=== PATIENT | female | born 1950 | race Caucasian/White ===

== ENCOUNTER → 2020-07-31 11:23 | Outpatient (BNVA) | payer MEDICARE, SELFPAY | PROVIDERS: PCP Family Medicine; Visit Provider Internal Medicine | DX: J44.9 Chronic obstructive pulmonary disease, unspecified (principal); J30.9 Allergic rhinitis, unspecified; R91.8 Other nonspecific abnormal finding of lung field | CPT/HCPCS: 99213 ==

== ENCOUNTER → 2020-11-07 10:43 | Outpatient (BNVA) | payer MEDICARE, SELFPAY | PROVIDERS: PCP Family Medicine; Visit Provider Physician Assistant | DX: Z13.89 Encounter for screening for other disorder (principal) | CPT/HCPCS: 99212 ==

== ENCOUNTER 2021-04-09 09:02 | Outpatient (REF) | payer MEDICARE, SELFPAY ==
--- NOTE | ~2021-04-09 | MM_ITS ---
US DIAGNOSTIC ULTRASOUND BREAST, LEFT CLINICAL INFORMATION: 70-year-old with 1-2 week history palpable concern 8:00 left breast. No known family history breast cancer. The lifetime risk of breast cancer based on the Tyrer-Cuzick Model is 2%. COMPARISON: Outside mammography 12/19/2018 ([facility]). TECHNIQUE: Digital breast tomosynthesis is performed in both the craniocaudal and mediolateral oblique views along with computer-aided detection (CAD). Synthesized 2D images are generated from the tomosynthesis. Ultrasound left breast is targeted to the area of clinical concern lower inner breast. Grayscale imaging and color Doppler are performed without and with harmonics. Patient is able to point to the area of concern at time of imaging. FINDINGS: There are scattered areas of fibroglandular density (ACR BI-RADS breast composition Category b). The right breast is unremarkable. There is no developing density or interval mass or architectural abnormality. The left breast has new benign rim calcification 8:00 position measuring 0.5 cm x 0.4 cm consistent with small focus fat necrosis. Inferior to the rim calcification is new oval area of parenchymal asymmetry approximately 0.8 cm without correlate on CC view. The axilla and skin contours are unremarkable. Ultrasound targeted to the lower inner left breast demonstrates a hypoechoic mass 9:00 position 4 cm from nipple measuring 0.8 x 0.8 x 0.6 cm. There are low level internal echoes. Margins are incompletely defined. There is increased through-transmission of sound. Some scant peripheral color flow is seen without and internal color flow. This corresponds to the area of palpable concern. Finding could represent a complicated cyst, possibly apocrine metaplasia, PASH, or other entity. Ultrasound-guided core biopsy is recommended. Results are discussed with the patient at time of visit. Results called to office (Michelle) for provider JAYDE Eisenberg on 04/09/2021. MM/MM tomosynthesis diagnostic BI IMPRESSION: 1. Hypoechoic nodule mid inner left breast 0.8 cm with incompletely defined margins corresponding to area of palpable concern. 2. No mammographic evidence of malignancy. ASSESSMENT: BI-RADS 4: Suspicious RECOMMENDATION: Ultrasound-guided core biopsy. This patient's information was entered into a reminder system with a target due date for their next mammogram.
== END 2021-04-09 09:03 | disposition home or self-care (01) ==
LOC: HO.MAMMO 09:02
PROVIDERS: Visit Provider Physician Assistant
DX: N63.24 Unspecified lump in the left breast, lower inner quadrant (principal)
CPT/HCPCS: 76642; 77062; 77066

== ENCOUNTER 2021-04-17 09:06 | Outpatient (REF) | payer MEDICARE, SELFPAY ==
--- NOTE | ~2021-04-17 | US_ITS ---
PROCEDURE: US GUIDED BREAST BIOPSY, LEFT BREAST CLINICAL INFORMATION: Hypoechoic lesion 8 o'clock position, 4 cm from nipple. COMPARISON: 04/09/2021 and studies dating back to 12/19/2018. PROCEDURAL DETAILS: The details of the procedure, as well as the risks, benefits, and alternatives to the procedure were explained to the patient in detail and all of her questions were answered, after which written informed consent was obtained. Site and side were confirmed. Prior to the procedure, sonography revealed a 6 x 5 mm circumscribed hypoechoic lesion at the 8 o'clock position, 4 cm from the nipple with some increased through-sound transmission and no abnormal distal sound shadowing.. A time-out was performed, the lesion intended for biopsy was targeted, and the skin of the left breast was then prepped and draped in the usual sterile fashion. Using sonographic guidance, sterile technique, and 1% lidocaine without epinephrine for local anesthesia, multiple automated core biopsies were obtained through the targeted area with a 14G spring loaded Achieve core biopsy device. There was real-time confirmation of appropriate needle passage. Sampling was documented. At the completion of tissue sampling, a single Butterfly-shaped metallic clip was deposited at the biopsy site. There was no evidence of immediate complication. SPECIMEN: An appropriate sample was obtained. DIGITAL POST-PROCEDURE MAMMOGRAPHY: Breast density: The tissue is heterogeneously dense which may obscure small masses. BI-RADS version 5, category C. There are no new mammographic findings demonstrated. The postprocedure 2-view direct digital mammogram reveals satisfactory positioning of the biopsy clip. The patient tolerated the procedure well and, after assuring adequate hemostasis, was discharged in good condition after reviewing postbiopsy breast care instructions. Final pathology results are pending. US/US breast ndl core biopsy LT IMPRESSION: 1. No immediate complication from ultrasound-guided percutaneous biopsy left breast. 2. Ultrasound was used to localize and guide marker clip placement. 3. The 2-view direct digital postprocedure mammogram reveals satisfactory positioning of the biopsy clip. 4. Final pathology results are pending. A separate report with final recommendations will be issued once these results are made available.
--- NOTE | ~2021-04-17 | MM_ITS ---
EXAMINATION: MM DIAGNOSTIC DIGITAL MAMMOGRAPHY, LEFT CLINICAL INFORMATION: Post biopsy mammogram COMPARISON: Mammography: April 09, 2021 and December 19, 2018 TECHNIQUE: Digital mammography is performed in craniocaudal and 90 degree mediolateral views along with computer-aided detection (CAD). FINDINGS: DIGITAL POST-PROCEDURE MAMMOGRAPHY: Breast density: The tissue is heterogeneously dense which may obscure small masses. BI-RADS version 5, category C. There are no new mammographic findings demonstrated. The postprocedure 2-view direct digital mammogram reveals satisfactory positioning of the biopsy clip. MM/MM diagnostic mammo unilat LT IMPRESSION: Left breast biopsy clip in good position. Addendum to report will be made when pathology results are obtained.
== END 2021-04-17 09:07 | disposition home or self-care (01) ==
LOC: HO.MAMMO 09:06
PROVIDERS: Visit Provider Surgery
DX: D05.12 Intraductal carcinoma in situ of left breast (principal); Z17.0 Estrogen receptor positive status [ER+]; R92.8 Other abnormal and inconclusive findings on diagnostic imaging of breast; R91.8 Other nonspecific abnormal finding of lung field; J44.9 Chronic obstructive pulmonary disease, unspecified; D80.1 Nonfamilial hypogammaglobulinemia; Z98.51 Tubal ligation status; Z90.710 Acquired absence of both cervix and uterus; Z88.1 Allergy status to other antibiotic agents; Z79.899 Other long term (current) drug therapy
CPT/HCPCS: 19083; 77065; 88305; 88360; 99202

== ENCOUNTER → 2021-04-23 15:40 | Outpatient (BNVA) | payer MEDICARE, SELFPAY | PROVIDERS: Visit Provider Surgery | DX: D05.12 Intraductal carcinoma in situ of left breast (principal) | CPT/HCPCS: Q3014 ==

== ENCOUNTER 2021-04-24 11:06 | Outpatient (REF) | payer MEDICARE, SELFPAY ==
--- NOTE | ~2021-04-24 | MM_ITS ---
EXAMINATION: BONE DENSITOMETRY CLINICAL INDICATION: Other specified disorders of bone. COMPARISON: None (current study represents initial baseline exam). TECHNIQUE: Using a [employer] DXA System (software version: 13.1) manufactured by [employer], dual-energy x-ray absorptiometry was performed of the lumbar spine and left hip. The images are of good technical quality. Summary results are attached. FINDINGS: AP SPINE L1-L4: BMD 0.906 g/cm2, Z-score -0.4, T-score -2.3, osteopenia. LEFT FEMUR, NECK: BMD 0.760 g/cm2, Z-score -0.1, T-score -2.0, osteopenia. LEFT FEMUR, TOTAL: BMD 0.792 g/cm2, Z-score -0.1, T-score -1.7, osteopenia. IDENTIFIED RISK FACTORS: Early menopause, secondary osteoporosis, bilateral oophorectomy, osteoporosis. HISTORY OF FRACTURE: None listed. MEDICATIONS: Calcium supplements or multivitamin, vitamin D, strontium. MM/XR DEXA axial skeleton IMPRESSION: 1. DIAGNOSIS: Osteopenia based on the lowest T-score value of -2.3 in the lumbar spine applying World Health Organization criteria. 2. 10-YEAR FRACTURE RISK PREDICTION, FRAX: Major osteoporotic fracture (clinical spine, forearm, hip or shoulder) 11.8%. Hip fracture 2.4%. 3. Treatment Recommendations: NOF guidelines recommend consideration for treatment in postmenopausal women and men age 50 and older presenting with the following: -A hip or vertebral (clinical or morphometric) fracture. -T-score less than or equal to -2.5 at the femoral neck or spine after appropriate evaluation to exclude secondary causes. -Low bone mass at the hip or spine and a 10-year fracture probability by FRAX of greater than or equal to 3% for hip fracture or greater than or equal to 20% for major osteoporotic fracture based on the [place] adapted WHO algorithm. 4. Other Recommendations: All treatment decisions require clinical judgment and consideration of individual patient factors, including patient preferences, comorbidities, previous drug use, risk factors not captured in the FRAX model (e.g. frailty, falls, vitamin D deficiency, increased bone turnover, interval significant decline in bone density) and possible under or overestimation of fracture risk by FRAX. Additional medical evaluation for secondary cause of low bone mineral density may be appropriate. FUTURE SCAN RECOMMENDATION: People with diagnosed cases of osteoporosis or at high risk for fracture should have regular bone mineral density tests. For patients eligible for Medicare, routine testing is allowed once every 2 years. The testing frequency can be increased to one year for patients who have rapidly progressing disease, those who are receiving or discontinuing medical therapy to restore bone mass, or have additional risk factors.
== END 2021-04-24 11:07 | disposition home or self-care (01) ==
LOC: HO.MAMMO 11:06
PROVIDERS: PCP Family Medicine; Visit Provider Family Medicine
DX: M81.0 Age-related osteoporosis without current pathological fracture (principal); M85.89 Other specified disorders of bone density and structure, multiple sites; Z78.0 Asymptomatic menopausal state
CPT/HCPCS: 77080

== ENCOUNTER 2021-11-11 13:54 | Outpatient (REF) | payer MEDICARE, SELFPAY ==
--- NOTE | ~2021-11-11 | XR_ITS ---
EXAMINATION: XR CHEST CLINICAL INFORMATION: Asthma COMPARISON: April 17, 2019 TECHNIQUE: 2 views of the chest were obtained. FINDINGS: There is no evidence of acute parenchymal disease, pneumothorax, or pleural effusion. Heart normal size. No evidence of pulmonary edema. Moderate size hiatal hernia present. Status post previous left shoulder surgery. XR/XR chest 2V IMPRESSION: No acute disease. Hiatal hernia.
--- NOTE | ~2021-11-11 | XR_ITS ---
EXAMINATION: XR SINUSES CLINICAL INFORMATION: Allergic rhinitis. COMPARISON: None TECHNIQUE: 3 views of the sinuses were obtained. FINDINGS: There is mild mucoperiosteal thickening bilateral frontal sinuses. The rest of the paranasal sinuses are well-aerated and clear. The mastoid sinuses are well-aerated and clear. No fractures are identified. No radiodense foreign bodies. XR/XR sinus min 3V IMPRESSION: Lesion is bilateral frontal sinuses likely inflammatory changes. The rest of the paranasal sinuses and mastoid air cells are well-aerated and clear.
== END 2021-11-11 13:55 | disposition home or self-care (01) ==
LOC: HO.XRAY 13:54
PROVIDERS: Visit Provider Internal Medicine
DX: J44.9 Chronic obstructive pulmonary disease, unspecified (principal); J45.909 Unspecified asthma, uncomplicated
CPT/HCPCS: 70220; 71046; 99212

== ENCOUNTER 2022-07-07 14:47 | Outpatient (REF) | payer MEDICARE, SELFPAY ==
--- NOTE | ~2022-07-07 | XR_ITS ---
EXAMINATION: XR CHEST CLINICAL INFORMATION: Bronchitis COMPARISON: Previous chest x-ray most recent October 2021 TECHNIQUE: 2 views of the chest were obtained. FINDINGS: The cardiac silhouette does not appear enlarged. There is an air-fluid level behind the heart suggestive of an esophageal hernia. Hilar and mediastinal contours are otherwise unremarkable. The lungs are clear. There is no pleural effusion or pneumothorax. There is slight increased thoracic kyphosis and mild lower thoracic vertebral body compression fracture that appears unchanged. There is evidence of previous surgery to the left shoulder. XR/XR chest 2V IMPRESSION: No evidence for acute disease in the chest. Esophageal hernia.
== END 2022-07-07 14:48 | disposition home or self-care (01) ==
LOC: HO.XRAY 14:47
PROVIDERS: PCP Family Medicine; Visit Provider Internal Medicine
DX: J40 Bronchitis, not specified as acute or chronic (principal); J44.9 Chronic obstructive pulmonary disease, unspecified; J30.9 Allergic rhinitis, unspecified; R91.8 Other nonspecific abnormal finding of lung field; Z79.899 Other long term (current) drug therapy
CPT/HCPCS: 71046; 99212

== ENCOUNTER → 2023-02-11 11:11 | Outpatient (BNVA) | payer MEDICARE, SELFPAY | PROVIDERS: PCP Family Medicine; Visit Provider Internal Medicine | DX: J44.9 Chronic obstructive pulmonary disease, unspecified (principal); J40 Bronchitis, not specified as acute or chronic; R91.8 Other nonspecific abnormal finding of lung field; Z87.891 Personal history of nicotine dependence | CPT/HCPCS: 99212 ==

== ENCOUNTER 2023-04-04 16:00 | Emergency (ER) | payer MEDICARE, SELFPAY ==
[2023-04-04 16:03] VITALS: BP 166/83; PULSE 83; RESP 16; TEMP 36.6; O2SAT 96; BMI 21.9
[2023-04-04 16:22] LABS: MANUAL DIFF FLAG NO
--- NOTE | 2023-04-04 16:22 | MHC.EDTECH ---
patient blood drawn and sent to lab ,pt unable to give urine sample at this time .
[2023-04-04 16:23] LABS: Basophils Absolute Auto 0.1 X10*3/uL (0.0-0.2); Basophils Percent Auto 0.4 % (0-2); Eosinophils Absolute Auto 0.3 X10*3/uL (0.0-0.4); Eosinophils Percent Auto 2.3 % (0-4); Hematocrit 37.9 % (37.0-47.0); Hemoglobin 12.8 g/dl (12.0-16.0); Imm Gran Abs Auto 0.04 X10*3/uL (0.00-0.03); Imm Gran Pct Auto 0.3 % (0.0-0.4); Lymphocytes Absolute Auto 2.3 X10*3/uL (1.2-4.9); Lymphocytes Percent Auto 17.8 % (20-40); Mean Corpuscular HGB Conc 33.8 g/dl (31.0-35.0); Mean Corpuscular Volume 94.8 fL (80.0-98.0); Mean Platelet Volume 8.8 fL (9.4-12.3); Monocytes Absolute Auto 1.3 X10*3/uL (0.1-1.2); Monocytes Percent Auto 9.9 % (2-11); Neutrophils Absolute Auto 8.9 x10*3/uL (2.0-8.3); Neutrophils Percent Auto 69.3 % (45-73); Platelet Count 232 X10*3/uL (160-400); Red Cell Distribution Width 12.7 % (11.0-16.0); White Blood Count 12.9 X10*3/uL (4.8-10.8)
--- NOTE | 2023-04-04 16:51 | MHC.EDTECH ---
PATIENT URINE SAMPLE COLLECTED AND SENT TO LAB .
[2023-04-04 16:56] LABS: Alanine Aminotransferase 22 U/L (0-31); Albumin Level 4.2 g/dL (3.5-5.0); Alkaline Phosphatase 63 U/L (39-117); Anion Gap 14 (12-20); Aspartate Amino Transferase 23 U/L (5-31); Bilirubin Total 0.3 mg/dL (0.0-1.0); Blood Urea Nitrogen 15 mg/dL (9-16); Calcium 9.7 mg/dL (8.4-10.2); Carbon Dioxide 24 mmol/L (22-29); Chloride 97 mmol/L (96-108); Creatinine Clr Calc Pharmacy 57.4; Estimated Glomerular Filt Rate > 60; Glucose Random 87 mg/dL (60-115); Potassium 4.2 mmol/L (3.3-5.1); Sodium 131 mmol/L (135-145); Total Protein 8.1 g/dL (6.5-8.0)
[2023-04-04 17:01] LABS: Appearance Urine Turbid; Color Urine Yellow; Glucose Urine UA Negative (Negative); Leukocyte Esterase Urine Large (3+) (Negative); Nitrite Urine Negative (Negative); Specific Gravity - Urine <= 1.005 (1.005-1.025); UMIC TRIGGER UACC YES; Urine Blood Large (3+) (Negative); Urine Ketones Negative (Negative); Urine Protein 100 (2+) mg/dL (Neg-Trace)
[2023-04-04 17:06] LABS: Bacteria Urine Trace (None Seen); Hyaline Casts Urine 0-2 /LPF (0-2); Squamous Epithelial Cell Urine 0-2 /HPF (0-2); UACC Culture Trigger YES; WBC Urine >50 /HPF (0-5)
--- NOTE | 2023-04-04 17:12 | ED_ITS ---
HPI - General Adult General Chief complaint: Abdominal Pain Stated complaint: divertuculosis? Time Seen by Provider: 04/04/23 17:11 Source: patient Mode of arrival: ambulatory Limitations: no limitations History of Present Illness HPI narrative: Patient is a 72 year old assigned female at with a history of dive rticulitis presenting to the emergency department today with vague abdominal pain, diarrhea, and increased urinary frequency. Patient states that over the last week she has had vague abdominal pain, diarrhea, and increased urinary frequency. Patient denies any dizziness, lightheadedness, nausea, vomiting, fever, chills, blurry vision, double vision, loss of vision, chest pain, difficulty breathing, shortness of breath, back pain, night sweats, pain with urination, increased urinary urgency, blood in her urine or stool, syncope or a near syncopal episode, recent trauma or falls, bowel incontinence, bladder incontinence, bowel retention, bladder retention, or any other complaints at this time. Onset (ago): week(s) (1) Location: abdomen Radiation: non-radiation Severity: mild Severity scale (1-10): 3 Quality: aching Pain Consistency: constant Relieving factors: none Exacerbating factors: none Associated symptoms: denies other symptoms Treatments prior to arrival: none Related Data Home Medications Medication Instructions Recorded Confirmed fluticasone propionate 50 2 spray intranasal DAILY 07/13/20 04/17/21 mcg/actuation nasal spray,suspension montelukast 10 mg tablet 10 mg PO DAILY 07/13/20 04/17/21 omeprazole 20 mg capsule,delayed mg PO 07/13/20 04/17/21 release immune glob,gamma(IgG) 15 %-18 % IM 11/08/20 04/17/21 range-glycine intramuscular solution bupropion HCl 150 mg 24 hr tablet, 300 mg PO DAILY 11/11/21 extended release celecoxib 200 mg capsule 200 mg PO DAILY 11/11/21 prochlorperazine maleate 10 mg 10 mg PO DAILY PRN 11/11/21 tablet letrozole 2.5 mg tablet 2.5 mg PO DAILY 07/07/22 thyroid (pork) 90 mg tablet 90 mg PO DAILY 07/07/22 ([place] Thyroid) oxybutynin chloride 5 mg tablet 5 mg PO BEDTIME 02/11/23 sertraline 50 mg tablet 25 mg PO DAILY 02/11/23 Previous Rx's Medication Instructions Recorded dicyclomine 10 mg capsule 10 mg PO TID 90 days #270 caps 01/07/21 Symbicort 160 mcg-4.5 2 puff PO BID #30.6 ea 06/19/22 mcg/actuation HFA aerosol inhaler (budesonide-formoterol) albuterol sulfate 90 mcg/actuation 2 puff inhalation Q4-6H PRN 01/21/23 aerosol inhaler shortness of breath or wheezing 30 days #1 ea doxycycline hyclate 100 mg tablet 100 mg PO BID BRONCHITIS 10 days 02/11/23 #20 tabs prednisone 5 mg tablet 10 mg PO BID BRONCHITIS 5 days 02/11/23 #20 tabs levofloxacin 750 mg tablet 750 mg PO DAILY 7 days #7 tabs 04/04/23 metronidazole 500 mg tablet 500 mg PO 3XD 7 days #21 tabs 04/04/23 Allergies Allergy/AdvReac Type Severity Reaction Status Date / Time amoxicillin [AMOXICILLIN] Allergy Unknown SEVERE Verified 04/04/23 16:02 DIARRHEA, diarrhea Review of Systems Constitutional: Constitutional: Reports no additional constitutional complaints, Denies chills, Denies fever(s) and Denies night sweats Eyes: Eyes: Reports no additional eye complaints, Denies blurry vision, Denies change in vision, Denies diplopia, Denies eye discharge, Denies loss of vision and Denies eye pain ENT: Denies dizziness Cardiovascular: Cardiovascular: Reports no additional cardiovascular complaints, Denies chest pain, Denies lightheadedness, Denies Loss of Consciousness and Denies dyspnea Respiratory: Respiratory: Reports no additional respiratory complaints and Denies dyspnea Gastrointestinal: Gastrointestinal: Reports no additional gastrointestinal complaints, Reports abdominal pain, Denies melena, Denies hematochezia, Denies change in bowel habits, Denies change in stool character, Reports diarrhea, Denies nausea and Denies vomiting Genitourinary: Genitourinary: Denies hematuria, Denies urinary frequency, Denies dysuria, Denies urinary incontinence, Denies urinary hesitancy and Denies urinary urgency Comments: increased urinary frequency Musculoskeletal: Musculoskeletal: Reports no additional musculoskeletal complaints, Denies numbness and Denies tingling Neurologic: Denies dizziness, Denies loss of vision, Denies numbness and Denies tingling Psychiatric: Psychiatric: Reports no additional psychiatric complaints Endocrine: Endocrine: Reports no additional endocrine complaints Hematologic/Lymphatic: Hematologic/Lymphatic: Reports no additional hematologic/lymphatic complaints Allergic/Immunologic: Allergic/Immunologic: Reports no additional allergic/immunologic complaints [facility] Past Medical History Attestation statement: The following information was validated with the patient. Source: old records reviewed and nursing notes reviewed Medical History Abnormality of left breast on screening mammography Allergic rhinitis Asthma Bronchitis COPD (chronic obstructive pulmonary disease) Ductal carcinoma in situ (DCIS) of left breast Hypogammaglobulinemia IBS (irritable bowel syndrome) Pulmonary nodules/lesions, multiple Surgical History H/O sinus surgery H/O tubal ligation H/O: hysterectomy History of tonsillectomy History of total left knee replacement Social History Social History Household Members: Spouse Household Members Other:: disabled grandson- Alcohol intake: never Patient Tobacco Use Status: Former Tobacco user Smoked in Last 30 Days: No Use of substances other than those prescribed or required for medical reasons: No Advance Directives: No Advance Directives Information Provided: No Current occupational status: unemployed Physical Exam ED Vital Signs: Vital Signs - 24 hr 04/04/23 16:03 Temperature 97.9 F Pulse Rate 83 Respiratory Rate 16 Blood Pressure 166/83 H Pulse Oximetry 96 Oxygen Delivery Method Room Air BMI result Body Mass Index 21.9 Const General: cooperative, no acute distress, alert and awake Nutritional Appearance: well nourished Orientation/consciousness: patient oriented x3 Limitations: no limitations [facility] Head: Yes normal to inspection and Yes atraumatic Ears: hearing grossly normal bilaterally and external ears normal General nose exam: Normal external nose present, no nasal discharge noted and no epistaxis Face and sinus: Yes normal facial exam, No abrasion and No laceration Mouth: Normal oral and palatal mucosa present, no drooling and no muffled voice Eyes General: appearance normal, both eyes and all related structures Periorbital: periorbital findings normal Eyelids: Yes eyelids normal Conjunctivae: conjunctivae normal Pupils: Equal, round and reactive pupils present EOM: EOMs intact bilaterally Neck Neck: Yes normal visual inspection, Yes full ROM and Yes no lymphadenopathy Chest Chest palpation & inspection: normal inspection of the chest Resp Effort & Inspection: normal respiratory effort and able to speak in complete sentences GI Inspection: Yes normal to inspection Palpation (GI): Soft to palpation, not firm, nontender and no guarding Neuro General: patient oriented x3 and moves all extremities Cranial nerves: Yes Equal, round and reactive pupils present Cognition (Neuro): normal cognition Motor exam (neuro): 5/5 motor strength present throughout Sensory Exam: Normal double simultaneous stimulation for sensation Coordination: [id number] test normal Extrem General: Yes normal to inspection, Yes full ROM and Yes capillary refill normal Psych Appearance: grossly normal Mental Status: mental status grossly normal Affect: normal affect Attitude: cooperative Thought process: Normal thought process present Thought content: Normal thought content present Insight: Good insight present (Psych) Medications Administered Discontinued Medications Generic Name Dose Route Start Last Admin Trade Name Freq PRN Reason Stop Dose Admin Levofloxacin 750 mg 04/04/23 17:34 04/04/23 17:44 Levofloxacin 750 Mg Tablet PO 04/04/23 17:35 750 mg ONCE ONE Administration Metronidazole 500 mg 04/04/23 17:34 04/04/23 17:44 Metronidazole 500 Mg Tablet PO 04/04/23 17:35 500 mg ONCE ONE Administration Ondansetron HCl 4 mg 04/04/23 17:34 04/04/23 17:44 Ondansetron Odt 4 Mg Tab.Rapdis TRANSLINGU 04/04/23 17:35 4 mg ONCE ONE Administration Medical Decision Making Medical Decision Making [facility] Narrative: Patient is a 72 year old assigned female at with a history of diverticulitis presenting to the emergency department today with abdominal pain, diarrhea, and increased urinary frequency. Patient's physical exam was unremarkable. Patient's blood work showed an elevated WBC count of 12.9 and a chronically decreased sodium of 131. Patient's urine showed an acute urinary tract infection. Given the patient's symptoms, will treat for both diverticuli tis and UTI. I explained my physical exam findings as well as all test results to the patient. I answered all questions asked by the patient. I stressed the importance of the patient taking her medication as prescribed. I stressed the importance of the patient following up with her primary care provider. I stressed the importance of the patient returning to the emergency department immediately if her symptoms were to worsen or if she were to develop any dizziness, shortness of breath, difficulty breathing, chest pain, blurry vision, loss of vision, nausea, vomiting, abdominal pain, fever, chills, back pain, or any other complaints. Patient verbalized agreement and understanding with this treatment plan and discharge. Differential Diagnosis Differential Diagnoses: The differential diagnosis associated with the presentation includes UTI, diverticulitis Admission/Observation Consideration of admission/observation: Escalation of care including admission/observation considered Patient would have been admitted to the hospital had her work up had any findings where hospital admission was appropriate. Lab Data [facility] Lab Attestation statement: I reviewed the patient's lab results. My interpretation of these labs is noted in the [facility] portion of this chart. 04/04/23 16:19 04/04/23 16:19 Labs: Lab Results 04/04/23 04/04/23 04/04/23 Range/Units 16:19 16:19 16:51 WBC 12.9 H (4.8-10.8) X10*3/uL RBC 4.00 L (4.20-5.50) X10*6/uL Hgb 12.8 (12.0-16.0) g/dl Hct 37.9 (37.0-47.0) % MCV 94.8 (80.0-98.0) fL MCH 32.0 (27.0-33.0) pg MCHC 33.8 (31.0-35.0) g/dl RDW 12.7 (11.0-16.0) % Plt Count 232 (160-400) X10*3/uL MPV 8.8 L (9.4-12.3) fL Immature Gran % (Auto) 0.3 (0.0-0.4) % Neut % (Auto) 69.3 (45-73) % Lymph % (Auto) 17.8 L (20-40) % [place] % (Auto) 9.9 (2-11) % Eos % (Auto) 2.3 (0-4) % Baso % (Auto) 0.4 (0-2) % Lymph # (Auto) 2.3 (1.2-4.9) X10*3/uL [place] # (Auto) 1.3 H (0.1-1.2) X10*3/uL Eos # (Auto) 0.3 (0.0-0.4) X10*3/uL Baso # (Auto) 0.1 (0.0-0.2) X10*3/uL Abs Immat Gran (auto) 0.04 H (0.00-0.03) X10*3/uL Absolute Neuts (auto) 8.9 H (2.0-8.3) x10*3/uL Absolute Nucleated RBC 0.000 (0.0-0.012) X10*3/uL Nucleated RBC % (auto) 0.0 (0.0-0.2) /100WBC Sodium 131 L (135-145) mmol/L Potassium 4.2 (3.3-5.1) mmol/L Chloride 97 (96-108) mmol/L Carbon Dioxide 24 (22-29) mmol/L Anion Gap 14 (12-20) BUN 15 (9-16) mg/dL Creatinine 0.70 (0.5-1.4) mg/dL Estim Creat Clear Calc 57.4 Estimated GFR > 60 Random Glucose 87 (60-115) mg/dL Calcium 9.7 (8.4-10.2) mg/dL Total Bilirubin 0.3 (0.0-1.0) mg/dL AST 23 (5-31) U/L ALT 22 (0-31) U/L Alkaline Phosphatase 63 (39-117) U/L Total Protein 8.1 H (6.5-8.0) g/dL Albumin 4.2 (3.5-5.0) g/dL Urine Color Yellow Urine Appearance Turbid Urine pH 6.0 (5.0-9.0) Ur Specific [place] <= 1.005 (1.005-1.025) Urine Protein 100 (2+) H (Neg-Trace) mg/dL Urine Glucose (UA) Negative (Negative) mg/dL Urine Ketones Negative (Negative) mg/dL Urine Blood Large (3+) H (Negative) Urine Nitrite Negative (Negative) Ur Leukocyte Esterase Large (3+) H (Negative) Urine RBC 6-10 H (0-2) /HPF Urine WBC >50 H (0-5) /HPF Ur Squamous Epith Cells 0-2 (0-2) /HPF Urine Bacteria Trace (None Seen) Hyaline Casts 0-2 (0-2) /LPF Discharge Plan Discharge Clinical Impression: Diverticulitis, Acute UTI Patient Disposition: Home, Self-Care Instructions: Diverticulitis (ED), Urinary Tract Infection in Women (DC) Additional Instructions: Follow up with your primary care provider. Return to the emergency department immediately if your symptoms worsen or if you develop any dizziness, shortness of breath, difficulty breathing, chest pain, blurry vision, loss of vision, nausea, vomiting, abdominal pain, fever, chills, back pain, or any other complaints. Prescriptions: New metronidazole 500 mg tablet 500 mg PO 3XD 7 Days Qty: 21 0RF levofloxacin 750 mg tablet 750 mg PO DAILY 7 Days Qty: 7 0RF No Action dicyclomine 10 mg capsule 10 mg PO TID 90 Days Qty: 270 2RF budesonide-formoterol [Symbicort] 160-4.5 mcg/actuation HFA aerosol inhaler 2 puff PO BID Qty: 30.6 1RF albuterol sulfate 90 mcg/actuation HFA aerosol inhaler 2 puff inhalation Q4-6H PRN (Reason: shortness of breath or wheezing) 30 Days Qty: 1 2RF montelukast 10 mg tablet 10 mg PO DAILY omeprazole 20 mg capsule,delayed release(DR/EC) PO fluticasone propionate 50 mcg/actuation spray,suspension 2 spray intranasal DAILY bupropion HCl 150 mg tablet extended release 24 hr 300 mg PO DAILY celecoxib 200 mg capsule 200 mg PO DAILY prochlorperazine maleate 10 mg tablet 10 mg PO DAILY PRN sertraline 50 mg tablet 25 mg PO DAILY immune glob G (IgG)-glycine 15-18 % range solution IM letrozole 2.5 mg tablet 2.5 mg PO DAILY thyroid (pork) [[place] Thyroid] 90 mg tablet 90 mg PO DAILY oxybutynin chloride 5 mg tablet 5 mg PO BEDTIME doxycycline hyclate 100 mg tablet 100 mg PO BID 10 Days Qty: 20 0RF prednisone 5 mg tablet 10 mg PO BID 5 Days Qty: 20 0RF Referrals: Sandeep Mares MD [Primary Care Provider] - Interventions: ED Discharge Assessment Last Done: 04/04/23 17:47 Print Language: Armenian
[2023-04-04] MEDS: Ondansetron ODT 4 MG TAB.RAPDIS TRANSLINGU (17:44)
[2023-04-04] MEDS: metroNIDAZOLE 500 MG TABLET PO (17:44)
[2023-04-04] MEDS: levoFLOXacin 750 MG TABLET PO (17:44)
== END 2023-04-04 17:58 | disposition home or self-care (01) ==
PROVIDERS: Emergency Provider Emergency Medicine; PCP Family Medicine
DX: K57.92 Diverticulitis of intestine, part unspecified, without perforation or abscess without bleeding (principal); N39.0 Urinary tract infection, site not specified; B96.20 Unspecified Escherichia coli [E. coli] as the cause of diseases classified elsewhere; Z79.899 Other long term (current) drug therapy
CPT/HCPCS: 36415; 80053; 81001; 81003; 85025; 87086; 87088; 87186; 99283; 99284

== ENCOUNTER 2023-06-30 16:08 | Outpatient (AMB) | payer MEDICARE, SELFPAY ==
--- NOTE | 2023-06-30 16:11 | A.OFFVIS_ITS ---
Intake Vital Signs 06/30/23 16:12 Height 5 ft 2 in Weight 126 lb BMI 23.0 BP 110/70 Blood Pressure Location Lt brachial Position Sitting Pulse 78 Pulse Source Pulse Oximeter Pulse Oximetry (%) 97 Oxygen Delivery Method Room Air Intake Visit Reasons: Cough Intake Note: pt is here for follow up and states she has a little short of breath and cough with the weather. Uses the inhalers and she is fine. 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 Required: No Allergies amoxicillin [AMOXICILLIN] Allergy (Unknown, Verified 06/30/23 16:23) SEVERE DIARRHEA, diarrhea Medication List - Last Reconciled 06/30/23 by Keagan Blackburn MD bupropion HCl 300 mg PO DAILY celecoxib 200 mg PO DAILY dicyclomine 10 mg PO TID 90 days fluticasone propionate 50 mcg/actuation 2 sprays intranasal DAILY immune glob G (IgG)-glycine 15-18 % range IM letrozole 2.5 mg PO DAILY metronidazole 500 mg PO 3XD 7 days montelukast 10 mg PO DAILY omeprazole mg PO oxybutynin chloride 5 mg PO BEDTIME prochlorperazine maleate 10 mg PO DAILY PRN sertraline 25 mg PO DAILY Symbicort 160-4.5 mcg/actuation (budesonide-formoterol) 2 puffs PO BID NS thyroid (pork) ([place] Thyroid) 90 mg PO DAILY Ventolin HFA 90 mcg/actuation (albuterol sulfate) 2 puffs PO Q4-6H PRN NS Do you need a note to return to daycare/school/sports/work: No HPI Cough HPI Details JACKIE IS 72 YEARS OLD VERY, PLEASANT FEMALE COMES FOR FOLLOW-UP AFTER 5 MONTHS. SHE HAS MILD INTERMITTENT NASAL CONGESTION BUT NOT. MUCH POSTNASAL DISCHARGE IT GOES WITH THE WEATHER. BREATHING HAS BEEN VERY STABLE SHE LONG SHE KEEPS ON USING SYMBICORT TWICE A DAY, AND SHE NEEDS ALBUTEROL INHALER ONCE OR TWICE. A DAY DURING THE HOT AND HUMID WEATHER SHE GETS SHORT OF BREATH IF SHE CLIMBS 1 FLIGHT OF STAIRS, BUT NOT ON THE LEVEL FLOOR. SHE HAS HAD no acute exacerbations. [facility] Medical History Bronchitis Ductal carcinoma in situ (DCIS) of left breast Abnormality of left breast on screening mammography Hypogammaglobulinemia IBS (irritable bowel syndrome) Asthma Pulmonary nodules/lesions, multiple COPD (chronic obstructive pulmonary disease) Allergic rhinitis Surgical History H/O sinus surgery History of tonsillectomy H/O: hysterectomy H/O tubal ligation History of total left knee replacement Social History Household Members: Spouse Household Members Other:: disabled grandson- Alcohol intake: never Patient Tobacco Use Status: Former Tobacco user Current occupational status: unemployed Female Reproductive History Menstrual Age of Menarche: 12 Review of Systems Const All systems reviewed & are unremarkable except as noted in HPI and below Denies snoring Eyes Reports no additional complaints ENT Reports nasal congestion (MILD INTERMITTENT BUT ALMOST ON DAILY BASIS) and Reports nasal discharge Card Denies chest pain, Denies irregular heart rhythm, Denies leg edema and Denies dyspnea Resp Reports cough, Denies dyspnea, Denies snoring and Denies wheezing GI Reports GI cramping (MILD INTERMITTENT) and Reports heartburn (CONTROLLED WITH OMEPRAZOLE) Reports no additional complaints Musc Reports no additional complaints Skin/Breast Reports system reviewed and no additional complaints, except as documented Neuro Reports no additional complaints Psych Reports no additional complaints Aller/Immun Denies wheezing Physical Exam Vital Signs: Last Vital Signs Pulse 78 06/30/23 16:12 BP 110/70 06/30/23 16:12 Pulse Ox 97 06/30/23 16:12 Oxygen Delivery Method Room Air 06/30/23 16:12 BMI result Body Mass Index 23.0 Const General: comfortable, no acute distress, alert and awake Orientation/consciousness: patient oriented x3 HEENT Head: Yes normal to inspection General nose exam: No nasal polyps present and No nasal discharge present Face and sinus: Yes sinuses nontender Mouth: oropharynx normal Throat: Yes posterior oropharynx normal Eyes General: appearance normal, both eyes and all related structures Neck Neck: Yes normal visual inspection, Yes no lymphadenopathy, Yes trachea midline and Yes no JVD Thyroid: Thyroid normal Chest Chest palpation & inspection: normal inspection of the chest, normal palpation of entire chest wall and no tenderness Resp Other: PERCUSSION NOTE IS RESONANT, BREATH SOUNDS ARE DISTANT ON BOTH SIDES . NO WHEEZES RHONCHI BUT A FEW INSPIRATORY CREPITATIONS HEARD OVER THE BASILAR AREAS. DEEP BREATHING IS CAUSING COUGH. Cardio Palpation: normal PMI Rate: regular rate Rhythm: regular rhythm Heart sounds: no gallops and no murmurs Peripheral pulses: Peripheral pulses 2+ throughout GI Palpation (GI): Soft to palpation, nontender, No hepatosplenomegaly present and no masses Auscultation: normal bowel sounds Back/Spine/Pelvis Thoracic/Lumbar Spine: thoracic and lumbar spine normal to inspection Skin General skin exam: no rashes or lesions noted Neuro General: patient oriented x3 and no focal motor deficits Cranial nerves: Yes CN's II-XII intact bilaterally Extrem General: Yes normal to inspection, Yes no clubbing, cyanosis or edema and Yes no calf tenderness Psych Appearance: grossly normal and well kempt Speech and movement: Normal speech and movement present Affect: Anxious affect present Assessment & Plan Assessment & Plan (1) COPD (chronic obstructive pulmonary disease): Comment: PER PREVIOUS SPIROMETRY SHE HAS NO CHRONIC OBSTRUCTIVE PULMONARY DISORDER. AND MOST LIKELY HER SYMPTOMS ARE JUST DUE TO MILD CHRONIC BRONCHIAL ASTHMA. TX : SYMBICORT 160-4.52 PUFFS B.I.D. BUT MAY CUT DOWN TO 1 PUFF B.I.D. WHEN SYMPTOMS OF OR TO BASELINE. AND ALBUTEROL 2 PUFFS Q 4-6 HOURS P.R.N. Code(s): J44.9 - Chronic obstructive pulmonary disease, unspecified (2) Allergic rhinitis: Comment: SHE HAS CHRONIC ALLERGIC RHINITIS, AND MAY ALSO HAVE ASSOCIATED SINUSITIS. X-RAY OF THE SINUSES WERE NEGATIVE . TREATMENT : CONTINUE USING FLONASE 2 SPRAY EACH NOSTRIL DAILY. MONTELUKAST 10 MG DAILY. STEAM INHALATIONS 2 OR 3 TIMES A DAY WOULD BE HELPFUL. Code(s): J30.9 - Allergic rhinitis, unspecified (3) Pulmonary nodules/lesions, multiple: Comment: Last CT scan of chest in 2019,, showed no change in size of multiple micronodules ,, and considered BENIGN . one new 3 mm. Nodule noted in Rt lung , but as she is non - smoker and low Risk , no need of doing follow up CT scan . Patient Educated , Code(s): R91.8 - Other nonspecific abnormal finding of lung field Coding Level of Care Code Est Pt Level 3 (19210) Diagnoses COPD (chronic obstructive pulmonary disease) J44.9 Allergic rhinitis J30.9 Pulmonary nodules/lesions, multiple R91.8
[2023-06-30 16:12] VITALS: BP 110/70; PULSE 78; O2SAT 97; BMI 23.0
== END 2023-06-30 16:25 | disposition home or self-care (01) ==
PROVIDERS: PCP Family Medicine; Visit Provider Internal Medicine
DX: J44.9 Chronic obstructive pulmonary disease, unspecified (principal); J30.9 Allergic rhinitis, unspecified; R91.8 Other nonspecific abnormal finding of lung field
CPT/HCPCS: 99213

== ENCOUNTER → 2023-06-30 16:08 | Outpatient (BNVA) | payer MEDICARE, SELFPAY | PROVIDERS: PCP Family Medicine; Visit Provider Internal Medicine | DX: J44.9 Chronic obstructive pulmonary disease, unspecified (principal); R91.8 Other nonspecific abnormal finding of lung field; J30.9 Allergic rhinitis, unspecified | CPT/HCPCS: 99212 ==

== ENCOUNTER 2024-03-08 13:35 | Outpatient (AMB) | payer MEDICARE, SELFPAY ==
[2024-03-08 13:42] VITALS: BP 130/72; PULSE 71; O2SAT 96; BMI 22.9
--- NOTE | 2024-03-08 13:42 | MHC.OFFVIS ---
Vital Signs 03/08/24 13:42 Height 5 ft 2 in Weight 125 lb BMI 22.9 BP 130/72 Blood Pressure Location Lt brachial Position Sitting Pulse 71 Pulse Source Pulse Oximeter Pulse Oximetry (%) 96 Oxygen Delivery Method Room Air Intake Visit Reasons: COPD Intake Note: pt is here for follow up and states she had covid in Nov, and in December bad sinus infections and than she had strep throat, and than finally UTI. (bad). 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: No Allergies amoxicillin [AMOXICILLIN] Allergy (Unknown, Verified 03/08/24 14:05) SEVERE DIARRHEA, diarrhea fLAGYL Adverse Reaction (Severe, Uncoded 03/08/24 14:05) Shortness of Breath Medication List - Last Reconciled 03/08/24 by Keagan Blackburn MD Breo Ellipta 200-25 mcg/dose (fluticasone furoate-vilanterol) 1 ea inhalation DAILY NS bupropion HCl XL 300 mg PO DAILY celecoxib 200 mg PO DAILY dicyclomine 10 mg PO TID 90 days fluticasone propionate 50 mcg/actuation 2 sprays intranasal DAILY immune glob G (IgG)-glycine 15-18 % range IM letrozole 2.5 mg PO DAILY montelukast 10 mg PO DAILY oxybutynin chloride 5 mg PO BEDTIME prochlorperazine maleate 10 mg PO DAILY PRN thyroid (pork) ([place] Thyroid) 90 mg PO DAILY Ventolin HFA 90 mcg/actuation (albuterol sulfate) 2 puffs inhalation Q4-6H PRN NS vibegron (Gemtesa) 75 mg PO DAILY Do you need a note to return to daycare/school/sports/work: No HPI HPI COPD: Details: THIS 73 YEARS OLD VERY PLEASANT FEMALE IS HERE FOR FOLLOW-UP AFTER 6 MONTHS. SHE IS BEING TREATED FOR ALLERGIC RHINITIS AND CHRONIC OBSTRUCTIVE PULMONARY DISEASE. SHE LIKES BREO AND USES 1 INHALATION DAILY , BREATHING STAYS WELL. SHE HAS HAD COVID INFECTION IN NOVEMBER , AND THEN IN DECEMBER AND RECOVERED BY HERSELF WITHOUT ANY SPECIAL MEDICATION. HER SYMPTOMS OF ALLERGIC RHINITIS CONTINUE, GETTING WORSE OFF AND ON., WITH POSTNASAL DRIP. MOSTLY CONTROLLED WITH HER CURRENT MEDICAL REGIMEN. SHE HAS HYPOGLOBILEMIA BEING TREATED WITH IGG INJECTION ONCE A MONTH. [facility] Medical History Bronchitis Ductal carcinoma in situ (DCIS) of left breast Abnormality of left breast on screening mammography Hypogammaglobulinemia IBS (irritable bowel syndrome) Asthma Pulmonary nodules/lesions, multiple COPD (chronic obstructive pulmonary disease) Allergic rhinitis Surgical History H/O sinus surgery History of tonsillectomy H/O: hysterectomy H/O tubal ligation History of total left knee replacement Social History Household Members: Spouse Household Members Other:: disabled grandson- Alcohol intake: never Patient Tobacco Use Status: Former Tobacco user Current occupational status: unemployed Female Reproductive History Menstrual Age of Menarche: 12 Review of Systems Const All systems reviewed & are unremarkable except as noted in HPI and below Denies snoring Eyes Reports no additional complaints ENT Reports nasal congestion (MILD INTERMITTENT BUT ALMOST ON DAILY BASIS) and Reports nasal discharge Card Denies chest pain, Denies irregular heart rhythm, Denies leg edema and Denies dyspnea Resp Reports cough, Denies dyspnea, Denies snoring and Denies wheezing GI Reports GI cramping (MILD INTERMITTENT) and Reports heartburn (CONTROLLED WITH OMEPRAZOLE) Reports no additional complaints Musc Reports no additional complaints Skin/Breast Reports system reviewed and no additional complaints, except as documented Neuro Reports no additional complaints Psych Reports no additional complaints Aller/Immun Denies wheezing Physical Exam Vital Signs: Last Vital Signs Pulse 71 03/08/24 13:42 BP 130/72 03/08/24 13:42 Pulse Ox 96 03/08/24 13:42 Oxygen Delivery Method Room Air 03/08/24 13:42 BMI result Body Mass Index 22.9 Const General: comfortable, no acute distress, alert and awake Orientation/consciousness: patient oriented x3 HEENT Head: Yes normal to inspection General nose exam: No nasal polyps present and No nasal discharge present Face and sinus: Yes sinuses nontender Mouth: oropharynx normal Throat: Yes posterior oropharynx normal Eyes General: appearance normal, both eyes and all related structures Neck Neck: Yes normal visual inspection, Yes no lymphadenopathy, Yes trachea midline and Yes no JVD Thyroid: Thyroid normal Chest Chest palpation & inspection: normal inspection of the chest, normal palpation of entire chest wall and no tenderness Resp Other: PERCUSSION NOTE IS RESONANT, BREATH SOUNDS ARE DISTANT ON BOTH SIDES . NO WHEEZES OR RHONCHI BUT A FEW INSPIRATORY CREPITATIONS HEARD OVER THE BASILAR AREAS. Cardio Palpation: normal PMI Rate: regular rate Rhythm: regular rhythm Heart sounds: no gallops and no murmurs Peripheral pulses: Peripheral pulses 2+ throughout GI Palpation (GI): Soft to palpation, nontender, No hepatosplenomegaly present and no masses Auscultation: normal bowel sounds Back/Spine/Pelvis Thoracic/Lumbar Spine: thoracic and lumbar spine normal to inspection Skin General skin exam: no rashes or lesions noted Neuro General: patient oriented x3 and no focal motor deficits Cranial nerves: Yes CN's II-XII intact bilaterally Extrem General: Yes normal to inspection, Yes no clubbing, cyanosis or edema and Yes no calf tenderness Psych Appearance: grossly normal and well kempt Speech and movement: Normal speech and movement present Affect: Anxious affect present Assessment & Plan Assessment & Plan (1) Allergic rhinitis: Comment: SHE HAS CHRONIC ALLERGIC RHINITIS, WHICH HAS REMAINED WELL CONTROLLED. Code(s): J30.9 - Allergic rhinitis, unspecified Category: Medical Plan: TREATMENT : CONTINUE USING FLONASE 2 SPRAY EACH NOSTRIL DAILY. MONTELUKAST 10 MG DAILY. STEAM INHALATIONS 2 OR 3 TIMES A DAY WOULD BE HELPFUL. (2) COPD (chronic obstructive pulmonary disease): Comment: PER PREVIOUS SPIROMETRY SHE HAS NO CHRONIC OBSTRUCTIVE PULMONARY DISORDER. AND MOST LIKELY HER SYMPTOMS ARE JUST DUE TO MILD CHRONIC BRONCHIAL ASTHMA. Code(s): J44.9 - Chronic obstructive pulmonary disease, unspecified Category: Medical Plan: [place] : BREO ELLIPTA 200-251 INHALATION DAILY ALBUTEROL HFA Q 4 HOURS ONLY P.R.N. (3) Pulmonary nodules/lesions, multiple: Comment: Last CT scan of chest in 2019,, showed no change in size of multiple micronodules ,, and considered BENIGN . One new 3 mm. Nodule noted in Rt lung , but as she is non - smoker and low Risk , no need of doing follow up CT scan . Patient Educated , Code(s): R91.8 - Other nonspecific abnormal finding of lung field Category: Medical (4) Asthma: Comment: PER PREVIOUS EVALUATION SHE HAS CHRONIC BRONCHIAL ASTHMA HOWEVER MILD, WHICH SEEMS TO BE WELL CONTROLLED. Code(s): J45.909 - Unspecified asthma, uncomplicated Category: Medical Plan: NOTED UNDER COPD, SHE IS USING BREO 200-25 1 INHALATION DAILY AND IS HAPPY WITH THAT. SHE HARDLY NEEDS TO USE ANY RESCUE INHALER. Plan ADVISE THAT SHE SHOULD CONTINUE THE PRESENT MEDICATION REGIMEN. Coding Level of Care Code Est Pt Level 3 (51588) Diagnoses Allergic rhinitis J30.9 COPD (chronic obstructive pulmonary disease) J44.9 Pulmonary nodules/lesions, multiple R91.8 Asthma J45.909
== END 2024-03-08 14:05 | disposition home or self-care (01) ==
LOC: HO.HPS 13:40
PROVIDERS: PCP Family Medicine; Visit Provider Internal Medicine
DX: J30.9 Allergic rhinitis, unspecified (principal); J44.9 Chronic obstructive pulmonary disease, unspecified; R91.8 Other nonspecific abnormal finding of lung field; J45.909 Unspecified asthma, uncomplicated
CPT/HCPCS: 99213

== ENCOUNTER → 2024-03-08 13:40 | Outpatient (BNVA) | payer MEDICARE, SELFPAY | PROVIDERS: PCP Family Medicine; Visit Provider Internal Medicine | DX: J44.9 Chronic obstructive pulmonary disease, unspecified (principal); J45.909 Unspecified asthma, uncomplicated; R91.8 Other nonspecific abnormal finding of lung field | CPT/HCPCS: 99212 ==

== ENCOUNTER 2024-05-14 19:34 | Inpatient (IN) | payer MEDICARE, SELFPAY ==
--- NOTE | ~2024-05-14 | CT_ITS ---
EXAMINATION: CT ABDOMEN AND PELVIS WITH CONTRAST CLINICAL INFORMATION: Left lower quadrant pain; history of diverticulitis. COMPARISON: Abdominal ultrasound dated 04/23/2020; CT abdomen and pelvis dated 03/25/2012. TECHNIQUE: Multidetector volumetric images were obtained from the superior aspect of the liver through the pubic symphysis following administration 85 mL of Omnipaque 350 intravenous contrast. Sagittal and coronal reformatted images were obtained on the technologist's workstation. Oral contrast: No This CT examination was performed using dose optimization techniques as appropriate, variously including the following: *Automated exposure control *Adjustment of mA and/or kV according to patient size (this includes techniques or standardized protocols for targeted exams where dose is matched to indication/reason for exam; i.e. extremities or head) *Use of iterative reconstruction technique DLP: 495 mGy-cm FINDINGS: LUNG BASES: There is a moderately large hiatus hernia. There is mild bibasilar dependent hypoaeration. LIVER, GALLBLADDER, AND BILIARY TREE: The liver is normal in size, shape, and attenuation. No focal hepatic lesion or biliary ductal dilatation is present. The gallbladder is unremarkable with no evidence of radiopaque gallstones, gallbladder wall thickening, or obvious pericholecystic inflammatory changes. PANCREAS: Unremarkable. SPLEEN: Unremarkable. ADRENAL GLANDS: Unremarkable. KIDNEYS AND URETERS: The kidneys are normal in size, shape, and attenuation. No hydronephrosis, hydroureter, or calculi seen. At the interpolar aspect of the right kidney (2:31), a 1.0 cm exophytic simple cyst is seen, with postcontrast Hounsfield value of -8.4 units. This requires no imaging follow-up. No perinephric stranding. BLADDER: Unremarkable. GASTROINTESTINAL TRACT: There is marked diverticulosis, without acute diverticulitis. No bowel obstruction, free intraperitoneal air or abscess is seen. There is no focal bowel wall thickening. The vermiform appendix appears normal. ABDOMINAL WALL: There is a small fat-containing umbilical hernia. LYMPH NODES: There is no abdominopelvic lymphadenopathy. VASCULAR: There is moderate aortoiliac atherosclerotic calcification. No abdominal aortic aneurysm or dissection is seen. PELVIC VISCERA: Surgically absent. No pelvic mass, free fluid or lymphadenopathy is seen. OSSEOUS STRUCTURES: There are mild T11 and T12 anterior wedge compression fractures, unchanged from the lateral chest radiograph dated 07/07/2022. At L2-L3, there is degenerative disc disease, with vacuum disc phenomenon and a 3 mm retrolisthesis. No acute or aggressive osseous finding is noted. CT/CT abdomen pelvis w IV con IMPRESSION: 1. There is marked diverticulosis, without acute diverticulitis. No obstruction, free intraperitoneal air or abscess is seen. The vermiform appendix appears normal. 2. There is no urinary calculus or obstruction. 3. No abdominopelvic mass, free fluid or lymphadenopathy is seen. 4. There is a small fat-containing umbilical hernia. 5. There are stable mild T11-T12 anterior wedge compression fractures. There is degenerative disc disease at L2-L3. 6. There is a moderately large hiatus hernia. Fleischner guidelines were followed.
[2024-05-14 19:37] VITALS: BP 155/84; PULSE 82; RESP 16; TEMP 36.3; O2SAT 96; BMI 23.2
[2024-05-14 20:00] LABS: MANUAL DIFF FLAG NO
[2024-05-14 20:02] LABS: Appearance Urine Clear; Color Urine Yellow; Glucose Urine UA Negative (Negative); Leukocyte Esterase Urine Negative (Negative); Nitrite Urine Negative (Negative); Urine Blood Negative (Negative); Urine Ketones Negative (Negative); Urine Protein Negative (Neg-Trace)
[2024-05-14 20:02] LABS: Basophils Percent Auto 0.5 % (0-2); Eosinophils Absolute Auto 0.2 X10*3/uL (0.0-0.4); Eosinophils Percent Auto 1.9 % (0-4); Hematocrit 36.2 % (37.0-47.0); Hemoglobin 12.9 g/dl (12.0-16.0); Imm Gran Abs Auto 0.03 X10*3/uL (0.00-0.03); Imm Gran Pct Auto 0.4 % (0.0-0.4); Lymphocytes Absolute Auto 2.2 X10*3/uL (1.2-4.9); Lymphocytes Percent Auto 27.5 % (20-40); Mean Corpuscular HGB Conc 35.6 g/dl (31.0-35.0); Mean Corpuscular Hemoglobin 32.6 pg (27.0-33.0); Mean Corpuscular Volume 91.4 fL (80.0-98.0); Mean Platelet Volume 8.6 fL (9.4-12.3); Monocytes Absolute Auto 0.9 X10*3/uL (0.1-1.2); Monocytes Percent Auto 11.6 % (2-11); Neutrophils Absolute Auto 4.6 x10*3/uL (2.0-8.3); Neutrophils Percent Auto 58.1 % (45-73); Platelet Count 225 X10*3/uL (160-400); Red Blood Count 3.96 X10*6/uL (4.20-5.50); Red Cell Distribution Width 12.1 % (11.0-16.0); White Blood Count 7.9 X10*3/uL (4.8-10.8)
[2024-05-14 20:17] LABS: Alanine Aminotransferase 22 U/L (0-31); Albumin Level 4.1 g/dL (3.5-5.0); Alkaline Phosphatase 56 U/L (39-117); Anion Gap 14 (12-20); Aspartate Amino Transferase 21 U/L (5-31); Bilirubin Direct 0.1 mg/dL (0.0-0.5); Bilirubin Total 0.3 mg/dL (0.0-1.0); Blood Urea Nitrogen 16 mg/dL (9-16); Calcium 9.2 mg/dL (8.4-10.2); Carbon Dioxide 19 mmol/L (22-29); Chloride 95 mmol/L (96-108); Creatinine Clr Calc Pharmacy 61.9; Estimated Glomerular Filt Rate > 60; Glucose Random 93 mg/dL (60-115); Sodium 124 mmol/L (135-145); Total Protein 7.9 g/dL (6.5-8.0)
--- NOTE | 2024-05-14 20:18 | ED.ABDPAIN ---
HPI - Abdominal Pain General Chief Complaint: Abdominal Pain Stated Complaint: ?diverticulitis Time Seen by Provider: 05/14/24 19:47 Source: patient Mode of arrival: ambulatory Limitations: no limitations History of Present Illness ED Provider: Dr. Jenny Cabezas HPI narrative: Patient comes to the emergency room complaining of 2 days of abdominal pain. Patient states that the pain is constant, more towards the left side and bilateral lower quadrants. Patient denies vomiting, 1 episode of diarrhea, constant nausea. Patient states that for the last 3 days she has been taking p.o. levofloxacin which she had available at home p.r.n. abdominal pain and diverticulitis like symptoms. Patient states she has had diverticulitis in the past. Patient states that she is not feeling any better. Related Data Home Medications ?Medication ?Instructions ?Recorded ?Confirmed fluticasone propionate 50 2 spray intranasal DAILY 07/13/20 04/17/21 mcg/actuation nasal spray,suspension montelukast 10 mg tablet 10 mg PO DAILY 07/13/20 04/17/21 immune glob,gamma(IgG) 15 %-18 % IM 11/08/20 04/17/21 range-glycine intramuscular solution bupropion HCl 150 mg 24 hr tablet, 300 mg PO DAILY 11/11/21 extended release celecoxib 200 mg capsule 200 mg PO DAILY 11/11/21 prochlorperazine maleate 10 mg 10 mg PO DAILY PRN 11/11/21 tablet letrozole 2.5 mg tablet 2.5 mg PO DAILY 07/07/22 thyroid (pork) 90 mg tablet 90 mg PO DAILY 07/07/22 ([place] Thyroid) oxybutynin chloride 5 mg tablet 5 mg PO BEDTIME 02/11/23 vibegron 75 mg tablet (Gemtesa) 75 mg PO DAILY 03/08/24 Previous Rx's ?Medication ?Instructions ?Recorded dicyclomine 10 mg capsule 10 mg PO TID 90 days #270 caps 01/07/21 Breo Ellipta 200 mcg-25 mcg/dose 1 ea inhalation DAILY #60 ea 02/14/24 powder for inhalation (fluticasone furoate-vilanterol) Ventolin HFA 90 mcg/actuation 2 puff inhalation Q4-6H PRN for 05/09/24 aerosol inhaler (albuterol sulfate) wheezing 90 days #54 ea Allergies Allergy/AdvReac Type Severity Reaction Status Date / Time amoxicillin [AMOXICILLIN] Allergy Unknown SEVERE Verified 05/14/24 19:37 DIARRHEA, diarrhea fLAGYL AdvReac Severe Shortness Uncoded 05/14/24 19:37 of Breath Review of Systems Review of Systems Constitutional : No Weight loss, No Fever, No Chills, No Night Sweats, No Fatigue, No Malaise ENT/Mouth : No Hearing loss, No Ear Pain, No Nasal Congestion, No Sinus Pain, No Hoarseness, No sore throat, No Rhinorrhea, No Swallowing Difficulty Eyes: No Eye Pain, No Swelling, No Redness, No Foreign Body, No Discharge, No Vision Changes Cardiovascular : No Chest Pain, No SOB, No Dyspnea on Exertion, No Orthopnea, No Edema, No Palpitations Respiratory : No Cough, No Sputum, No Wheezing, No Smoke Exposure, No Dyspnea Gastrointestinal : Complaining of Nausea, No Vomiting, No Diarrhea, No Constipation, complaining of diffuse abdominal pain, worse over the left lower quadrant and bilateral quadrants Genitourinary : no irregular bleeding, No Dysuria, No Urinary Frequency, No Hematuria, No Urinary Incontinence, No Urgency, No Flank Pain, No Urinary Flow Changes, No Hesitancy Musculoskeletal : No joint pain, No Myalgias, No Joint Swelling Skin : No Skin Lesions, No rash Neuro : No Weakness, No Numbness, No Paresthesias, No Loss of Consciousness, No Dizziness, No Headache Psych : No Anxiety/Panic, No Depression, No SI/HI/AH/VH, No Social Issues, Heme/Lymph: No Bruising, No Bleeding,No Lymphadenopathy Endocrine : No Polyuria, No Polydipsia, No Temperature Intolerance PMFSH Past Medical History Medical History Bronchitis Ductal carcinoma in situ (DCIS) of left breast Abnormality of left breast on screening mammography Hypogammaglobulinemia IBS (irritable bowel syndrome) Asthma Pulmonary nodules/lesions, multiple COPD (chronic obstructive pulmonary disease) Allergic rhinitis Surgical History H/O sinus surgery History of tonsillectomy H/O: hysterectomy H/O tubal ligation History of total left knee replacement Social History Social History Household Members: Spouse Household Members Other:: disabled grandson- Alcohol intake: never Patient Tobacco Use Status: Former Tobacco user Smoked in Last 30 Days: No Use of substances other than those prescribed or required for medical reasons: No Advance Directives: Yes Advance Directives Information Provided: No Advance Directives on File: No Current occupational status: unemployed Physical Exam ED Vital Signs: Vital Signs - 24 hr 05/14/24 19:37 Temperature 97.3 F Pulse Rate 82 Respiratory Rate 16 Blood Pressure 155/84 H Pulse Oximetry 96 Oxygen Delivery Method Room Air BMI result Body Mass Index 23.2 Const Other: Appearance: Alert. Oriented X3. No acute distress. Eyes: Pupils equal, round and reactive to light. ENT: Pharynx normal. Neck: Normal inspection. Neck supple. No lymph nodes noted. No crepitus CVS: Normal heart rate and rhythm. Pulses normal. Normal S1 and S2 Respiratory: No respiratory distress. Breath sounds normal. No Wheezing. No rales Abdomen: Soft, pain to palpation in the left upper and lower quadrant, no rebound or guarding. Skin: Skin warm and dry. Normal skin color. Normal skin turgor. Extremities: No lower extremity edema. No Lacerations. No Rash Neuro: Oriented X 3. No motor deficit. No sensory deficit. Moving all extremities. No slurred speech. CN 2 through 12 grossly intact Psych: calm, cooperative, normal affect Course Course Course Narrative: -patient receiving IV fluids, ketorolac and Zofran. -all of patient's labs and imaging pending Medical Decision Making Medical Decision Making [facility] Narrative: -my interpretation of labs: Normal white blood cell count. Chemistry shows a sodium of 124. Normal LFTs. Urine analysis negative for UTI -patient admits that she drinks a lot of water -my interpretation of CT scan, no obvious small bowel obstruction, no obvious abscess -I discussed the patient with Dr. Orlando from the Medicine team, patient being admitted Differential Diagnosis Differential Diagnoses: The differential diagnosis associated with the presentation includes (UTI, hyponatremia, diverticulitis) Admission/Observation Consideration of admission/observation: Escalation of care including admission/observation considered Consult Healthcare Provider Management of the patient was discussed with: Hospitalist Lab Data [facility] Lab Attestation statement: I reviewed the patient's lab results. 05/14/24 19:52 05/14/24 19:52 Labs: Lab Results 05/14/24 05/14/24 Range/Units 19:52 19:54 WBC 7.9 (4.8-10.8) X10*3/uL RBC 3.96 L (4.20-5.50) X10*6/uL Hgb 12.9 (12.0-16.0) g/dl Hct 36.2 L (37.0-47.0) % MCV 91.4 (80.0-98.0) fL MCH 32.6 (27.0-33.0) pg MCHC 35.6 H (31.0-35.0) g/dl RDW 12.1 (11.0-16.0) % Plt Count 225 (160-400) X10*3/uL MPV 8.6 L (9.4-12.3) fL Immature Gran % (Auto) 0.4 (0.0-0.4) % Neut % (Auto) 58.1 (45-73) % Lymph % (Auto) 27.5 (20-40) % [place] % (Auto) 11.6 H (2-11) % Eos % (Auto) 1.9 (0-4) % Baso % (Auto) 0.5 (0-2) % Lymph # (Auto) 2.2 (1.2-4.9) X10*3/uL [place] # (Auto) 0.9 (0.1-1.2) X10*3/uL Eos # (Auto) 0.2 (0.0-0.4) X10*3/uL Baso # (Auto) 0.0 (0.0-0.2) X10*3/uL Abs Immat Gran (auto) 0.03 (0.00-0.03) X10*3/uL Absolute Neuts (auto) 4.6 (2.0-8.3) x10*3/uL Absolute Nucleated RBC 0.000 (0.0-0.012) X10*3/uL Nucleated RBC % (auto) 0.0 (0.0-0.2) /100WBC Sodium 124 L (135-145) mmol/L Potassium 4.0 (3.3-5.1) mmol/L Chloride 95 L (96-108) mmol/L Carbon Dioxide 19 L (22-29) mmol/L Anion Gap 14 (12-20) BUN 16 (9-16) mg/dL Creatinine 0.64 (0.5-1.4) mg/dL Estim Creat Clear Calc 61.9 Estimated GFR > 60 Random Glucose 93 (60-115) mg/dL Calcium 9.2 (8.4-10.2) mg/dL Total Bilirubin 0.3 (0.0-1.0) mg/dL Direct Bilirubin 0.1 (0.0-0.5) mg/dL AST 21 (5-31) U/L ALT 22 (0-31) U/L Alkaline Phosphatase 56 (39-117) U/L Total Protein 7.9 (6.5-8.0) g/dL Albumin 4.1 (3.5-5.0) g/dL Urine Color Yellow Urine Appearance Clear Urine pH 6.0 (5.0-9.0) Ur Specific [place] 1.010 (1.005-1.025) Urine Protein Negative (Neg-Trace) mg/dL Urine Glucose (UA) Negative (Negative) mg/dL Urine Ketones Negative (Negative) mg/dL Urine Blood Negative (Negative) Urine Nitrite Negative (Negative) Ur Leukocyte Esterase Negative (Negative) Urine Osmolality 253 L (373-1093) mosm/kg Ur Random Sodium < 20.0 mmol/L Independent Interpretation I performed an independent interpretation of an: CT Scan Radiology Impression Discussion of test interpretation with radiology: I have reviewed the radiologist's reading. Radiologist Impression: FINDINGS: LUNG BASES: There is a moderately large hiatus hernia. There is mild bibasilar dependent hypoaeration. LIVER, GALLBLADDER, AND BILIARY TREE: The liver is normal in size, shape, and attenuation. No focal hepatic lesion or biliary ductal dilatation is present. The gallbladder is unremarkable with no evidence of radiopaque gallstones, gallbladder wall thickening, or obvious pericholecystic inflammatory changes. PANCREAS: Unremarkable. SPLEEN: Unremarkable. ADRENAL GLANDS: Unremarkable. KIDNEYS AND URETERS: The kidneys are normal in size, shape, and attenuation. No hydronephrosis, hydroureter, or calculi seen. At the interpolar aspect of the right kidney (2:31), a 1.0 cm exophytic simple cyst is seen, with postcontrast Hounsfield value of -8.4 units. This requires no imaging follow-up. No perinephric stranding. BLADDER: Unremarkable. GASTROINTESTINAL TRACT: There is marked diverticulosis, without acute diverticulitis. No bowel obstruction, free intraperitoneal air or abscess is seen. There is no focal bowel wall thickening. The vermiform appendix appears normal. ABDOMINAL WALL: There is a small fat-containing umbilical hernia. LYMPH NODES: There is no abdominopelvic lymphadenopathy. VASCULAR: There is moderate aortoiliac atherosclerotic calcification. No abdominal aortic aneurysm or dissection is seen. PELVIC VISCERA: Surgically absent. No pelvic mass, free fluid or lymphadenopathy is seen. OSSEOUS STRUCTURES: There are mild T11 and T12 anterior wedge compression fractures, unchanged from the lateral chest radiograph dated 07/07/2022. At L2-L3, there is degenerative disc disease, with vacuum disc phenomenon and a 3 mm retrolisthesis. No acute or aggressive osseous finding is noted. CT/CT abdomen pelvis w IV con IMPRESSION: 1. There is marked diverticulosis, without acute diverticulitis. No obstruction, free intraperitoneal air or abscess is seen. The vermiform appendix appears normal. 2. There is no urinary calculus or obstruction. 3. No abdominopelvic mass, free fluid or lymphadenopathy is seen. 4. There is a small fat-containing umbilical hernia. 5. There are stable mild T11-T12 anterior wedge compression fractures. There is degenerative disc disease at L2-L3. 6. There is a moderately large hiatus hernia. Fleischner guidelines were followed. Medications Administered Discontinued Medications Generic Name Dose Route Start Last Admin Trade Name Freq PRN Reason Stop Dose Admin Sodium Chloride 1,000 mls @ 999 mls/hr 05/14/24 20:16 05/14/24 20:31 Ns IVCONT 05/14/24 21:16 999 mls/hr .Q1H1M ONE Administration Iohexol 100 ml 05/14/24 20:40 05/14/24 20:40 Iohexol 350 Mg/Ml 100 Ml Infus..Btl IV 05/14/24 20:41 85 ml ONCE ONE Administration Ketorolac Tromethamine 30 mg 05/14/24 20:16 05/14/24 20:31 Ketorolac Tromethamine 30 Mg/Ml Vial IVPUSH 05/14/24 20:17 30 mg ONCE ONE Administration Ondansetron HCl 4 mg 05/14/24 20:16 05/14/24 20:31 Ondansetron Hcl 4 Mg/2 Ml Vial IVPUSH 05/14/24 20:17 4 mg ONCE ONE Administration Critical Care Time Critical Care Time Critical Care Time: Yes Total Critical Care Time: 60 Attestation: I have personally provided critical care time. Time includes review of lab data, radiology results, discussion with consultants, and monitoring for potential decompensation. Intervention performed as documented. Discharge Plan Discharge Clinical Impression: Acute hyponatremia, Abdominal pain, Polydipsia Patient Disposition: Admitted As Inpatient Prescriptions: No Action dicyclomine 10 mg capsule 10 mg PO TID 90 Days Qty: 270 2RF fluticasone furoate-vilanterol [Breo Ellipta] 200-25 mcg/dose blister with device 1 ea inhalation DAILY Qty: 60 2RF albuterol sulfate [Ventolin HFA] 90 mcg/actuation HFA aerosol inhaler 2 puff inhalation Q4-6H PRN (Reason: for wheezing) 90 Days Qty: 54 1RF montelukast 10 mg tablet 10 mg PO DAILY fluticasone propionate 50 mcg/actuation spray,suspension 2 spray intranasal DAILY bupropion HCl 150 mg tablet extended release 24 hr 300 mg PO DAILY celecoxib 200 mg capsule 200 mg PO DAILY prochlorperazine maleate 10 mg tablet 10 mg PO DAILY PRN immune glob G (IgG)-glycine 15-18 % range solution IM letrozole 2.5 mg tablet 2.5 mg PO DAILY thyroid (pork) [[place] Thyroid] 90 mg tablet 90 mg PO DAILY oxybutynin chloride 5 mg tablet 5 mg PO BEDTIME Gemtesa 75 mg tablet 75 mg PO DAILY Print Language: Tajik
[2024-05-14] MEDS: ondansetron HCL 4 MG/2 ML VIAL IVPUSH (20:31)
[2024-05-14] MEDS: Ketorolac Tromethamine 30 MG/ML VIAL IVPUSH (20:31)
[2024-05-14] MEDS: 0.9 % Sodium Chloride 1,000 ML 999 ML IVCONT (20:31)
[2024-05-14] MEDS: iohexoL 350 MG/ML 100 ML INFUS..BTL IV (20:40)
[2024-05-14 21:06] LABS: Osmolality Urine 253 mosm/kg (373-1093)
[2024-05-14 21:10] LABS: Sodium Urine Random < 20.0 mmol/L
--- NOTE | 2024-05-14 21:45 | PM.IMHP ---
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 Patient reports her pain is mostly in the lower abdomen, though also extends into the upper abdomen. Has been experiencing nausea but no vomiting. Had 1 episode of loose stool earlier this morning. States she has not been eating any food for the past 3 days but has been continuing to drink plenty of water, around 3 ?big cups? daily also complains of mild dizziness and feeling like she is bloated. Patient reports the symptoms are similar to those she experienced during her previous episodes of diverticulitis. Last had diverticulitis around 1 year ago, and up to 4-5 other episodes prior to that. Yesterday patient started taking leftover Levaquin for a total of 3 doses. Reports he has been drinking and urinating about the same as normal. Denies polyuria or dysuria. No chest pain/pressure, palpitations. Denies shortness of breath or difficulty breathing. No fever chills, the patient notes she rarely experiences fever due to her immunocompromised state. Reports she normally puts ?load? of salt on everything. And has also been told by her PCP that her sodium is often low in the low 130s. Patient has been taking bupropion for many years now. Also reports she has recently been taking the supplement IntestiNew from [employer] that she purchased on [employer]. In the ED pt was hypertensive up to 155/84, vitals otherwise stable and WNL. Labs were significant for hyponatremia of 124 and urine osmolality 253, otherwise grossly unremarkable. No leukocytosis. Stable H&H. Renal function baseline. Hepatic function baseline. UA negative for UTI. CT?of abdomen and pelvis were negative for acute abdomen; did find marked diverticulosis without acute diverticulitis. Also found stable mild T11 through T12 anterior wedge compression fractures and degenerative disc disease at L2-L3. Pt was treated with IVF, ketorolac, and ondansetron. Pt will be admitted to the hospital for treatment of acute hyponatremia. Review of Systems Review of Systems: Lower abdominal pain Nausea, no vomiting Abdominal bloating Lightheadedness/dizziness Loose stool x1 episode this morning No chest pain/pressure, palpitations Denies shortness of breath or difficulty breathing No fever, chills PMFSH Medical History Bronchitis Ductal carcinoma in situ (DCIS) of left breast Abnormality of left breast on screening mammography Hypogammaglobulinemia IBS (irritable bowel syndrome) Asthma Pulmonary nodules/lesions, multiple COPD (chronic obstructive pulmonary disease) Allergic rhinitis Surgical History H/O sinus surgery History of tonsillectomy H/O: hysterectomy H/O tubal ligation History of total left knee replacement Social History Household Members: Spouse Household Members Other:: disabled grandson- Alcohol intake: never Patient Tobacco Use Status: Former Tobacco user Smoked in Last 30 Days: No Use of substances other than those prescribed or required for medical reasons: No Advance Directives: Yes Advance Directives Information Provided: No Advance Directives on File: No Current occupational status: unemployed Meds Allergies Allergy/AdvReac Type Severity Reaction Status Date / Time amoxicillin [AMOXICILLIN] Allergy Unknown SEVERE Verified 05/14/24 19:37 DIARRHEA, diarrhea fLAGYL AdvReac Severe Shortness Uncoded 05/14/24 19:37 of Breath Home Medications ?Medication ?Instructions ?Recorded ?Confirmed ?Last Taken ?Type fluticasone propionate 50 2 spray intranasal DAILY 07/13/20 04/17/21 Unknown History mcg/actuation nasal spray,suspension montelukast 10 mg tablet 10 mg PO DAILY 07/13/20 04/17/21 Unknown History immune glob,gamma(IgG) 15 %-18 % IM 11/08/20 04/17/21 Unknown History range-glycine intramuscular solution bupropion HCl 150 mg 24 hr tablet, 300 mg PO DAILY 11/11/21 Unknown History extended release celecoxib 200 mg capsule 200 mg PO DAILY 11/11/21 Unknown History prochlorperazine maleate 10 mg 10 mg PO DAILY PRN 11/11/21 Unknown History tablet letrozole 2.5 mg tablet 2.5 mg PO DAILY 07/07/22 Unknown History thyroid (pork) 90 mg tablet 90 mg PO DAILY 07/07/22 Unknown History ([place] Thyroid) oxybutynin chloride 5 mg tablet 5 mg PO BEDTIME 02/11/23 Unknown History vibegron 75 mg tablet (Gemtesa) 75 mg PO DAILY 03/08/24 Unknown History Physical Exam Vital Signs and Narrative: Vital Signs: Last Vital Signs Temp 97.3 F 05/14/24 19:37 Pulse 82 05/14/24 19:37 Resp 16 05/14/24 19:37 BP 155/84 H 05/14/24 19:37 Pulse Ox 96 05/14/24 19:37 O2 Del Method Room Air 05/14/24 19:37 BMI result Body Mass Index 23.2 Constitutional: Alert, in no acute distress. Mental Status: Oriented to person, place and time. Eyes: Pupils are equal, round, and reactive to light. Ear, Nose, and Throat: Oropharynx clear, mucous membranes moist. Ears and nose without deformities. Trachea midline. Respiratory: Clear to auscultation bilaterally. No wheezing, rales, or rhonchi. Cardiovascular: S1, S2 regular. No murmurs, rubs, or gallops. Gastrointestinal: Abdomen soft, non-distended, with suprapubic tenderness. Normal bowel sounds. Neurologic: Cranial nerves II-XII are grossly intact bilaterally. No focal neurological deficits. Moves all extremities spontaneously. Skin: Warm, dry. Extremities: No edema. Psychiatric: Normal mood and affect. Results Labs 05/14/24 19:52 05/14/24 19:52 Labs: Laboratory Results - last 24 hr 05/14/24 05/14/24 19:52 19:54 MCV 91.4 MCH 32.6 MCHC 35.6 H RDW 12.1 Plt Count 225 MPV 8.6 L Immature Gran % (Auto) 0.4 Neut % (Auto) 58.1 Lymph % (Auto) 27.5 [place] % (Auto) 11.6 H Eos % (Auto) 1.9 Baso % (Auto) 0.5 Lymph # (Auto) 2.2 [place] # (Auto) 0.9 Eos # (Auto) 0.2 Baso # (Auto) 0.0 Abs Immat Gran (auto) 0.03 Absolute Neuts (auto) 4.6 Absolute Nucleated RBC 0.000 Nucleated RBC % (auto) 0.0 Anion Gap 14 Estim Creat Clear Calc 61.9 Estimated GFR > 60 Random Glucose 93 Calcium 9.2 Total Bilirubin 0.3 Direct Bilirubin 0.1 AST 21 ALT 22 Alkaline Phosphatase 56 Total Protein 7.9 Albumin 4.1 Urine Color Yellow Urine Appearance Clear Urine pH 6.0 Ur Specific [place] 1.010 Urine Protein Negative Urine Glucose (UA) Negative Urine Ketones Negative Urine Blood Negative Urine Nitrite Negative Ur Leukocyte Esterase Negative Urine Osmolality 253 L Ur Random Sodium < 20.0 Imaging Radiologist's Impressions: Impressions Abdomen/Pelvis CT 05/14/24 20:48 IMPRESSION: 1. There is marked diverticulosis, without acute diverticulitis. No obstruction, free intraperitoneal air or abscess is seen. The vermiform appendix appears normal. 2. There is no urinary calculus or obstruction. 3. No abdominopelvic mass, free fluid or lymphadenopathy is seen. 4. There is a small fat-containing umbilical hernia. 5. There are stable mild T11-T12 anterior wedge compression fractures. There is degenerative disc disease at L2-L3. 6. There is a moderately large hiatus hernia. Fleischner guidelines were followed. 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 Pt will be admitted to the hospital for treatment of acute hyponatremia. Hyponatremia Sodium 124 at time of presentation, lower than baseline of around 132 Unclear etiology: Reduced sodium intake vs medication induced vs nephrogenic, SIADH unlikely Patient with reduced intake of food with a past 3 days Pt has been on bupropion for years Serum osmolality low at 266, urine osmolality low at 253, urine sodium <20.0 Will check TSH, free a.m. cortisol Fluid restriction Nephrology consult Follow sodium closely Abdominal pain Pt complains of lower abdominal pain and bloating, similar to previous episodes of diverticulitis Took leftover levofloxacin at home x3 doses Physical exam primarily with suprapubic tenderness Unclear etiology: CT of abd and pelvis without diverticulitis, no acute abdomen or pelvis Analgesics for pain management Continue dicyclomine Monitor for now, no additional workup indicated at this time COPD Not in acute exacerbation Continue home inhalers Hx of breast cancer Continue letrozole Hypothyroidism Continue levothyroxine Mood disorder Continue Wellbutrin Full Code Attending:?Dr. Orlando DVT Prophylaxis: Lovenox Pt will require a hospitalization of at least two nights for treatment of?acute hyponatremia with close monitoring of sodium levels and specialist consultation with Nephrology. Quality Stroke Does the patient have a stroke diagnosis?: No VTE Prior VTE?: No VTE Risk Level:: Medical - moderate - high VTE Device Contraindication: Treatment Not Indicated VTE Drug Contraindication: N/A - Med Ordered
[2024-05-14 22:03] LABS: Osmolality, Serum 266 mosm/kg (281-305)
[2024-05-14 22:36] VITALS: BP 171/80; PULSE 78; RESP 16; TEMP 36.7; O2SAT 95
[2024-05-14 23:10] LABS: Thyroid Stimulating Hormone 0.82 uIU/mL (0.32-4.0)
[2024-05-14] MEDS: Prochlorperazine Edisylate 10 MG/2 ML VIAL IVPUSH (23:23)
[2024-05-14] MEDS: Enoxaparin Sodium 40 MG/0.4 ML SYRINGE SUBCUT (23:24)
[2024-05-14] MEDS: oxyCODONE HCl Immed Release 5 MG TABLET PO (23:27)
--- NOTE | 2024-05-14 23:31 | PC.NURSE ---
pt reported nausea and 6/10 abd pain. per prn scale oxycodone given and per PA compazine given as pt not due for prn zofran at this time. pt denies vomiting/diarrhea. Bp as documented, PA aware and to continue monitoring at this time, pt denies GUY/blurry vision.
[2024-05-15] VITALS: BP 136/67; PULSE 73; RESP 20; TEMP 35.7; O2SAT 94
[2024-05-15] MEDS: 0.9 % Sodium Chloride Flush 3 ML SYRINGE IVFLUSH ×2 (00:56→12:36)
[2024-05-15 01:00] VITALS: BP 136/67; PULSE 74; RESP 20; TEMP 36.1; O2SAT 94; BMI 23.2
[2024-05-15 01:55] LABS: Sodium 134 mmol/L (135-145)
[2024-05-15 03:18] VITALS: BP 147/68; PULSE 86; RESP 20; TEMP 36.1; O2SAT 97
[2024-05-15 06:36] LABS: Anion Gap 12 (12-20); Blood Urea Nitrogen 11 mg/dL (9-16); Calcium 9.1 mg/dL (8.4-10.2); Carbon Dioxide 25 mmol/L (22-29); Chloride 103 mmol/L (96-108); Estimated Glomerular Filt Rate > 60; Glucose Random 99 mg/dL (60-115); Potassium 3.6 mmol/L (3.3-5.1); Sodium 136 mmol/L (135-145)
[2024-05-15 07:19] VITALS: BP 177/82; PULSE 73; RESP 20; TEMP 36.3; O2SAT 97
--- NOTE | 2024-05-15 09:46 | MHC.CM.PN ---
CM MET W/PT TO DISCUSS DISPO, PT C/O DISTANCE HOWEVER AGREEABLE TO HIGH VIEW OF NOHO, CM HAS REQUESTED UPDATED REFERRAL AND REQUESTED SNF GO FOR AUTH PT HAS PEE MEDICAID, CM WILL CONT TO FOLLOW DC NEEDS.
--- NOTE | 2024-05-15 09:46 | MHC.CM.PN ---
IMM 05/15. Pt self-care, lives at home alone. Pt states her grandson stays with her every weekend and helps her out, and her 2 daughters also visit her very often. Pt will transport herself home at discharge, her car is in the lot. Pts states her 2 daughters are her HCP, copy requested. PCP: Dr. Sandeep Templeton
--- NOTE | 2024-05-15 09:47 | PHA.MEDREC ---
Pharmacy Consult ? Medication Reconciliation Pharmacy has completed the medication reconciliation. Spoke to patient and confirmed medication list. Patient said she injects IVIG 8 grams under the skin twice a week on wednesday and wednesday.
[2024-05-15 12:00] VITALS: BP 185/79; PULSE 73; RESP 16; TEMP 36.8; O2SAT 96
--- NOTE | 2024-05-15 12:15 | P.DS_ITS ---
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 Patient reports her pain is mostly in the lower abdomen, though also extends into the upper abdomen. Has been experiencing nausea but no vomiting. Had 1 episode of loose stool earlier this morning. States she has not been eating any food for the past 3 days but has been continuing to drink plenty of water, around 3 ?big cups? daily also complains of mild dizziness and feeling like she is bloated. Patient reports the symptoms are similar to those she experienced during her previous episodes of diverticulitis. Last had diverticulitis around 1 year ago, and up to 4-5 other episodes prior to that. Yesterday patient started taking leftover Levaquin for a total of 3 doses. Reports he has been drinking and urinating about the same as normal. Denies polyuria or dysuria. No chest pain/pressure, palpitations. Denies shortness of breath or difficulty breathing. No fever chills, the patient notes she rarely experiences fever due to her immunocompromised state. Reports she normally puts ?load? of salt on everything. And has also been told by her PCP that her sodium is often low in the low 130s. Patient has been taking bupropion for many years now. Also reports she has recently been taking the supplement IntestiNew from [employer] that she purchased on [employer]. In the ED pt was hypertensive up to 155/84, vitals otherwise stable and WNL. Labs were significant for hyponatremia of 124 and urine osmolality 253, otherwise grossly unremarkable. No leukocytosis. Stable H&H. Renal function baseline. Hepatic function baseline. UA negative for UTI. CT?of abdomen and pelvis were negative for acute abdomen; did find marked diverticulosis without acute diverticulitis. Also found stable mild T11 through T12 anterior wedge compression fractures and degenerative disc disease at L2-L3. Pt was treated with IVF, ketorolac, and ondansetron. Pt will be admitted to the hospital for treatment of acute hyponatremia. 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 intake and nausea vomiting. patient recieved hydration in Ed sodium seems to be improved. Elevated blood pressure -has hx of flacutaing Bp ( might be elevated due to pain /also she follows it with pcp outpatient and says her blood pressure more elevated when she is sick): bp still elevated -discussed with patient -added amlodipine 2.5 mg po daily.moniter bp closely,further management outpatient . plan: moniter bmp in 1 week continue amlodipine 2.5 mg po daily.moniter bp closely,further management outpatient . follow up with pcp. Time Attestation Total time managing care of this patient today: 40 mintues. Discharge Coordination Time (in mins): 40 min Quality: Safe Use of Opioids Does Pt have an Active Cancer Diagnosis on the Problem List?: No Quality: Stroke Does the patient have a stroke diagnosis?: No Physical Exam Vital Signs: Vital Signs: Last Vital Signs Temp 98.2 F 05/15/24 12:00 Pulse 73 05/15/24 12:00 Resp 16 05/15/24 12:00 BP 185/79 H 05/15/24 12:00 Pulse Ox 96 05/15/24 12:00 O2 Del Method Room Air 05/15/24 12:00 BMI result Body Mass Index 23.2 Appearance: Alert.? Oriented X3.? cvs: rrr, [id number]. res: clear to auscultation ,no rhonchii or wheezing abd: no rebound or guarding ,nt, bs present. ext pulses present , no cyanosis . neuro: axo3 , nonfocal. DS: Data Data Completed and Pending Labs on day of discharge: Laboratory Results - last 24 hr 05/14/24 05/14/24 05/14/24 19:52 19:54 21:04 WBC 7.9 RBC 3.96 L Hgb 12.9 Hct 36.2 L MCV 91.4 MCH 32.6 MCHC 35.6 H RDW 12.1 Plt Count 225 MPV 8.6 L Immature Gran % (Auto) 0.4 Neut % (Auto) 58.1 Lymph % (Auto) 27.5 [place] % (Auto) 11.6 H Eos % (Auto) 1.9 Baso % (Auto) 0.5 Lymph # (Auto) 2.2 [place] # (Auto) 0.9 Eos # (Auto) 0.2 Baso # (Auto) 0.0 Abs Immat Gran (auto) 0.03 Absolute Neuts (auto) 4.6 Absolute Nucleated RBC 0.000 Nucleated RBC % (auto) 0.0 Sodium 124 L Potassium 4.0 Chloride 95 L Carbon Dioxide 19 L Anion Gap 14 BUN 16 Creatinine 0.64 Estim Creat Clear Calc 61.9 Estimated GFR > 60 Random Glucose 93 Osmolality 266 L Calcium 9.2 Magnesium 2.0 Total Bilirubin 0.3 Direct Bilirubin 0.1 AST 21 ALT 22 Alkaline Phosphatase 56 Total Protein 7.9 Albumin 4.1 TSH 0.82 Urine Color Yellow Urine Appearance Clear Urine pH 6.0 Ur Specific [place] 1.010 Urine Protein Negative Urine Glucose (UA) Negative Urine Ketones Negative Urine Blood Negative Urine Nitrite Negative Ur Leukocyte Esterase Negative Urine Osmolality 253 L Ur Random Sodium < 20.0 05/15/24 05/15/24 01:37 05:55 WBC RBC Hgb Hct MCV MCH MCHC RDW Plt Count MPV Immature Gran % (Auto) Neut % (Auto) Lymph % (Auto) [place] % (Auto) Eos % (Auto) Baso % (Auto) Lymph # (Auto) [place] # (Auto) Eos # (Auto) Baso # (Auto) Abs Immat Gran (auto) Absolute Neuts (auto) Absolute Nucleated RBC Nucleated RBC % (auto) Sodium 134 L 136 Potassium 3.6 Chloride 103 Carbon Dioxide 25 Anion Gap 12 BUN 11 Creatinine 0.66 Estim Creat Clear Calc 60.0 Estimated GFR > 60 Random Glucose 99 Osmolality Calcium 9.1 Magnesium Total Bilirubin Direct Bilirubin AST ALT Alkaline Phosphatase Total Protein Albumin TSH Urine Color Urine Appearance Urine pH Ur Specific [place] Urine Protein Urine Glucose (UA) Urine Ketones Urine Blood Urine Nitrite Ur Leukocyte Esterase Urine Osmolality Ur Random Sodium Imaging Chest x-ray: Radiologist's impression: ITS Impressions Abdomen/Pelvis CT 05/14/24 20:48 IMPRESSION: 1. There is marked diverticulosis, without acute diverticulitis. No obstruction, free intraperitoneal air or abscess is seen. The vermiform appendix appears normal. 2. There is no urinary calculus or obstruction. 3. No abdominopelvic mass, free fluid or lymphadenopathy is seen. 4. There is a small fat-containing umbilical hernia. 5. There are stable mild T11-T12 anterior wedge compression fractures. There is degenerative disc disease at L2-L3. 6. There is a moderately large hiatus hernia. Fleischner guidelines were followed. Discharge Plan Discharge Anticipated Discharge Date/Time: 05/15/24 09:31 Patient Disposition: Home, Self-Care Discharge Diagnosis: hyponatremia possible sec to decreased po intake ,dehydration,flactuating BP readings Referrals: Sandeep Mares MD [Primary Care Provider] - 1 Week Discharge Medications: New amlodipine 2.5 mg tablet 2.5 mg PO DAILY Qty: 60 0RF Continued dicyclomine 10 mg capsule 10 mg PO TID 90 Days Qty: 270 2RF fluticasone furoate-vilanterol [Breo Ellipta] 200-25 mcg/dose blister with device 1 ea inhalation DAILY Qty: 60 2RF albuterol sulfate [Ventolin HFA] 90 mcg/actuation HFA aerosol inhaler 2 puff inhalation Q4H PRN (Reason: for wheezing) oxybutynin chloride 10 mg tablet extended release 24hr 10 mg PO BEDTIME bupropion HCl 300 mg tablet extended release 24 hr 300 mg PO DAILY montelukast 10 mg tablet 10 mg PO DAILY@1999 fluticasone propionate 50 mcg/actuation spray,suspension 2 spray intranasal DAILY celecoxib 200 mg capsule 200 mg PO BID prochlorperazine maleate 10 mg tablet 10 mg PO DAILY PRN (Reason: Nausea And Vomiting) immune glob G (IgG)-glycine 15-18 % range solution 80 ml TU Rx Instructions: 8 gram subcutaneously on wednesday and wednesday letrozole 2.5 mg tablet 2.5 mg PO DAILY@1999 thyroid (pork) [[place] Thyroid] 90 mg tablet 90 mg PO DAILY Gemtesa 75 mg tablet 75 mg PO DAILY Discharge Orders: Discharge Order (Routine); Ordered 05/15/24 Ordered By: Shirley Gibson Diet: Advance to usual diet Activity on Discharge: As tolerated Stand Alone Forms: Patient Portal Discharge page Print Language: Cambodian Other Ambulatory Orders: Basic Metabolic Panel (Routine) Timeframe: 1 Week Facility: 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 intake and nausea vomiting. patient recieved hydration in Ed sodium seems to be improved. Elevated blood pressure -has hx of flacutaing Bp ( might be elevated due to pain /also she follows it with pcp outpatient and says her blood pressure more elevated when she is sick): bp still elevated -discussed with patient -added amlodipine 2.5 mg po daily.moniter bp closely,further management outpatient . Health Concerns: as above. Plan of Treatment: as above. Assessment: as above.
[2024-05-15] MEDS: amLODIPine Besylate 2.5 MG TABLET PO (12:36)
--- NOTE | 2024-05-15 12:41 | MHC.CM.PN ---
Pt is medically cleared for discharge home self-care, pt will transport herself home.
[2024-05-15 14:57] VITALS: BP 152/67; PULSE 82; RESP 16; TEMP 36.1; O2SAT 97
--- NOTE | 2024-05-15 15:00 | P.CONNP_ITS ---
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 Patient reports her pain is mostly in the lower abdomen, though also extends into the upper abdomen. Has been experiencing nausea but no vomiting. Had 1 episode of loose stool earlier this morning. States she has not been eating any food for the past 3 days but has been continuing to drink plenty of water, around 3 ?big cups? daily also complains of mild dizziness and feeling like she is bloated. Patient reports the symptoms are similar to those she experienced during her previous episodes of diverticulitis. Last had diverticulitis around 1 year ago, and up to 4-5 other episodes prior to that. Yesterday patient started taking leftover Levaquin for a total of 3 doses. Reports he has been drinking and urinating about the same as normal. Denies polyuria or dysuria. No chest pain/pressure, palpitations. Denies shortness of breath or difficulty breathing. Review of Systems Constitutional: Denies fever(s) and Denies weight loss Cardiovascular: Denies chest pain Respiratory: Denies cough and Denies hemoptysis Gastrointestinal: Denies abdominal pain and Denies diarrhea Musculoskeletal: Denies back pain Denies focal weakness PMFSH Past Medical History Medical History Bronchitis Ductal carcinoma in situ (DCIS) of left breast Abnormality of left breast on screening mammography Hypogammaglobulinemia IBS (irritable bowel syndrome) Asthma Pulmonary nodules/lesions, multiple COPD (chronic obstructive pulmonary disease) Allergic rhinitis Surgical History Surgical History H/O sinus surgery History of tonsillectomy H/O: hysterectomy H/O tubal ligation History of total left knee replacement Social History Social History Household Members: None Household Members Other:: grandson comes on the weekends Housing: House Do you presently have visiting nurse or other home services: No Alcohol intake: never Patient Tobacco Use Status: Former Tobacco user Tobacco use type: Cigarette Cigarette Packs Per Day: 1 Cigarettes Per Day: 20.0 Years Smoked: 10 Smoked in Last 30 Days: No Patient Interested in Nicotine Replacement: No Patient Given Instructions on How to Stop Smoking: No Second Hand Smoke Exposure: No Use of substances other than those prescribed or required for medical reasons: No Substance Use Type: Marijuana Currently Displaying Signs/Symptoms of Drug Intoxication Withdrawal: No Have you been hit, kicked, punched, or otherwise hurt by someone within the past year? If so, by whom?: No Do you feel safe in your current relationship?: Yes Is there a partner from a previous relationship who is making you feel unsafe now?: No Are you made to feel afraid or neglected: No [facility] Healthcare Practices: pt is baptist Advance Directives: No (pt does not have info here today.) Advance Directives Information Provided: No Advance Directives on File: No Do you have a plan to hurt others: No Plan Recently lost weight without trying: No Patient : No : No service: No Current occupational status: unemployed Meds Allergies Allergy/AdvReac Type Severity Reaction Status Date / Time amoxicillin [AMOXICILLIN] Allergy Unknown SEVERE Verified 05/14/24 19:37 DIARRHEA, diarrhea fLAGYL AdvReac Severe Shortness Uncoded 05/14/24 19:37 of Breath Active Medications: Current Medications Acetaminophen (Acetaminophen 325 Mg Tablet) 650 mg PO Q6H PRN PRN Reason: Pain, Mild (Pain Scale 1-3), fever or headache Albuterol Sulfate (Albuterol Sulfate 90 Mcg 8 Gm Inhaler) 2 puff INHALE Q4H PRN PRN Reason: for wheezing Amlodipine Besylate (Amlodipine Besylate 2.5 Mg Tablet) 2.5 mg PO DAILY [facility]; Protocol Last Admin: 05/15/24 12:36 Dose: 2.5 mg Benzonatate (Benzonatate 100 Mg Capsule) 100 mg PO TID PRN PRN Reason: Cough Bupropion HCl (Bupropion Hcl Xl 300 Mg Tab.Er.24h) 300 mg PO DAILY [facility] Calcium Carbonate (Calcium Carbonate 750 Mg Tab.Chew) 750 mg PO Q4H PRN PRN Reason: Heartburn Celecoxib (Celecoxib 200 Mg Capsule) 200 mg PO BID [facility] Dicyclomine HCl (Dicyclomine Hcl 10 Mg Capsule) 10 mg PO TID [facility] Enoxaparin Sodium (Enoxaparin Sodium 40 Mg/0.4 Ml Syringe) 40 mg SUBCUT Q24H [facility] Last Admin: 05/14/24 23:24 Dose: 40 mg Fluticasone Propionate (Fluticasone Propionate Nasal 16 Gm [place]) 2 spray NOSTRIL-B DAILY [facility] Fluticasone/Vilanterol (Fluticasone/Vilanterol 200/25 Blst.W.Dev) 1 puff INHALE RDAILY [facility] Ketorolac Tromethamine (Ketorolac Tromethamine 30 Mg/Ml Vial) 30 mg IVPUSH Q6H PRN PRN Reason: Pain, Moderate(Pain Scale 4-6) Stop: 05/19/24 22:36 Letrozole (Letrozole 2.5 Mg Tablet) 2.5 mg PO DAILY@1999 [facility] Magnesium Hydroxide (Milk Of Magnesia 30 Ml Oral.Susp) 30 ml PO DAILY PRN PRN Reason: Constipation Melatonin (Melatonin 3 Mg Tablet) 6 mg PO BEDTIME PRN PRN Reason: Insomnia Montelukast Sodium (Montelukast Sodium 10 Mg Tablet) 10 mg PO DAILY@1999 [facility] Non-Formulary Medication (Vibegron [Gemtesa]) 75 mg PO DAILY [facility] Ondansetron HCl (Ondansetron Hcl 4 Mg/2 Ml Vial) 4 mg IVPUSH Q8H PRN PRN Reason: Nausea and Vomiting Oxybutynin Chloride (Oxybutynin Chloride Er 5 Mg Tab.Er.24) 10 mg PO BEDTIME [facility] Oxycodone HCl (Oxycodone Hcl Immed Release 5 Mg Tablet) 5 mg PO Q6H PRN PRN Reason: Pain, Moderate(Pain Scale 4-6) Last Admin: 05/14/24 23:27 Dose: 5 mg Prochlorperazine Maleate (Prochlorperazine Maleate 5 Mg Tablet) 10 mg PO DAILY PRN PRN Reason: Nausea And Vomiting Sodium Chloride (0.9 % Sodium Chloride Flush 3 Ml Syringe) 3 ml IVFLUSH QSHIFT [facility] Last Admin: 05/15/24 12:36 Dose: 3 ml Thyroid (Thyroid,Pork 30 Mg Tablet) 90 mg PO DAILY [facility] Home Medications ?Medication ?Instructions ?Recorded ?Confirmed ?Last Taken ?Type fluticasone propionate 50 2 spray intranasal DAILY 09/05/15/24 05/14/24 History mcg/actuation nasal spray,suspension montelukast 10 mg tablet 10 mg PO DAILY@199907/13/20 05/15/24 05/13/24 History immune glob,gamma(IgG) 15 %-18 % 80 ml TUFR 11/08/20 05/15/24 05/12/24 History range-glycine intramuscular solution celecoxib 200 mg capsule 200 mg PO BID 11/11/21 05/15/24 05/14/24 History prochlorperazine maleate 10 mg 10 mg PO DAILY PRN Nausea And 11/11/21 05/15/24 Unknown History tablet Vomiting letrozole 2.5 mg tablet 2.5 mg PO DAILY@199907/07/22 05/15/24 05/13/24 History thyroid (pork) 90 mg tablet 90 mg PO DAILY 07/07/22 05/15/24 05/14/24 History ([place] Thyroid) vibegron 75 mg tablet (Gemtesa) 75 mg PO DAILY 03/08/24 05/15/24 05/14/24 History albuterol sulfate 90 mcg/actuation 2 puff inhalation Q4H PRN for 05/15/24 05/15/24 Unknown History aerosol inhaler (Ventolin HFA) wheezing bupropion HCl 300 mg 24 hr tablet, 300 mg PO DAILY 05/15/24 05/15/24 05/14/24 History extended release oxybutynin chloride 10 mg 10 mg PO BEDTIME 05/15/24 05/15/24 05/13/24 History tablet,extended release 24 hr Physical Exam Vital Signs: Last Vital Signs Temp 97 F 05/15/24 14:57 Pulse 82 05/15/24 14:57 Resp 16 05/15/24 14:57 BP 152/67 H 05/15/24 14:57 Pulse Ox 97 05/15/24 14:57 O2 Del Method Room Air 05/15/24 14:57 BMI result Body Mass Index 23.2 Const General: comfortable; No acute distress Orientation/consciousness: patient oriented x3 Eyes General: appearance normal, both eyes and all related structures Visual Pérez: normal visual pérez by confrontation Neck Neck: Yes supple and Yes no JVD Resp Effort & Inspection: normal respiratory effort and respiratory effort not decreased Auscultation: rhonchi Cardio Palpation: no palpable S3 and no palpable S4 Heart sounds: no rubs GI Inspection: Yes normal to inspection Palpation (GI): Soft to palpation Percussion: Yes normal to percussion Auscultation: normal bowel sounds General: Yes no CVA tenderness Back/Spine/Pelvis Back: no CVA tenderness Skin General skin exam: no petechiae and no purpura Neuro General: patient oriented x3 and no focal motor deficits Extrem General: No clubbing and No edema Results Lab Results 05/14/24 19:52 05/15/24 05:55 Lab results: Chemistry 05/14/24 05/15/24 05/15/24 19:52 01:37 05:55 Sodium 124 L 134 L 136 Potassium 4.0 3.6 Carbon Dioxide 19 L 25 BUN 16 11 Creatinine 0.64 0.66 Calcium 9.2 9.1 Hematology 05/14/24 19:52 WBC 7.9 Hgb 12.9 Plt Count 225 Urinalysis 05/14/24 19:54 Urine Color Yellow Urine Appearance Clear Urine pH 6.0 Ur Specific [place] 1.010 Urine Protein Negative Urine Glucose (UA) Negative Urine Ketones Negative Urine Blood Negative Urine Nitrite Negative Ur Leukocyte Esterase Negative Urine Studies 05/14/24 19:54 Urine Osmolality 253 L Assessment and Plan (1) Acute hyponatremia: Status: Acute Plan 73-year-old woman with hyponatremia. She had nausea and she has been drinking excess free water which can contributed to hyponatremia. Urine sodium was less than 20 suggestive of hypoperfusion. With normal saline serum sodium gradually improved to 136. Rate of correction acceptable. She probably had non osmotic ADH release in the setting of nausea and serum sodium dropped with excessive free water intake. TSH was acceptable Cortisol level pending. Recommendation keep on oral free water restriction for the next few days. Control nausea. Renal function stable. She will arrange for outpatient follow-up Procedures Date of Service Date of Service: 05/15/24
[2024-05-15] MEDS: Dicyclomine HCl 10 MG CAPSULE PO (16:04)
[2024-05-21 21:49] LABS: Cortisol, Free 0.72 mcg/dL
== END 2024-05-15 14:35 | disposition home or self-care (01) | DRG 641 ==
LOC: HO.ED 21:35 → HO.EDOVER 22:48 → HO.IMC 23:08
PROVIDERS: Internal Medicine; Admitting Provider Student in an Organized Health Care Education/Training Program; Emergency Provider Emergency Medicine; PCP Family Medicine; Visit Provider Internal Medicine
DX: E87.1 Hypo-osmolality and hyponatremia (principal); D80.1 Nonfamilial hypogammaglobulinemia; J44.9 Chronic obstructive pulmonary disease, unspecified; E86.0 Dehydration; K57.90 Diverticulosis of intestine, part unspecified, without perforation or abscess without bleeding; Z87.891 Personal history of nicotine dependence; Z79.51 Long term (current) use of inhaled steroids; Z79.620 Long term (current) use of immunosuppressive biologic; Z79.899 Other long term (current) drug therapy
CPT/HCPCS: 36415; 74177; 80048; 80076; 81003; 82530; 83735; 83930; 83935; 84295; 84300; 84443; 85025; 99285; J0737; J1650; J1885; J2405; Q9967

== ENCOUNTER → 2024-05-14 22:37 | Outpatient (BNV) | payer MEDICARE, SELFPAY | PROVIDERS: Admitting Provider Student in an Organized Health Care Education/Training Program; Emergency Provider Emergency Medicine; PCP Family Medicine; Visit Provider Internal Medicine Hypertension Specialist | DX: E87.1 Hypo-osmolality and hyponatremia (principal) | CPT/HCPCS: 99222 ==

== ENCOUNTER → 2024-05-14 22:37 | Outpatient (BNV) | payer MEDICARE, SELFPAY | PROVIDERS: Admitting Provider Student in an Organized Health Care Education/Training Program; Emergency Provider Emergency Medicine; PCP Family Medicine; Visit Provider Student in an Organized Health Care Education/Training Program | DX: E87.1 Hypo-osmolality and hyponatremia (principal) | CPT/HCPCS: 99222; 99239 ==

== ENCOUNTER 2024-11-21 13:39 | Outpatient (AMB) | payer MEDICARE, SELFPAY ==
--- OUTSIDE RECORDS SUMMARY | 2024-11-21 13:49 | XMS_ITS | Encounter Summary ---
Author Organization [facility] Address [address] [place] [address] Care Team Providers Care Speech Scientist Name Role Phone Romero Cedeño MD Primary Care [facility] Encounter Details Date Type Department Care Team (Late st Contact Info) Description 08/19/2024 Lab Requisition [facility] - Main Lab [address] [facility] [place] [phone] Jun Robert MD [address] [place] [address] Essential (primary) hypertension Social History Tobacco Use Types Packs/Day Years Used Date Smoking Tobacco: Never Smokeless Tobacco: Never Alcohol Use Standard Drinks/Week Comments No 0 (1 standard drink = 0.6 oz pur e alcohol) Sex and Gender Information Value Date Recorded Sex Assigned at Not on file Gender Identity Not on file Sexual Orientation Not on file documented as of this encounter Plan of Treatment Not on file documented as of this encounter Visit Diagnoses Diagnosis Essential (primary) hypertension Unspecified essential hypertension documented in this encounter Care Teams Speech Scientist Relationship Specialty Start Date End Date Romero Cedeño MD [address] [place], [place] PCP - General Internal Medicine 07/15/21 documented as of this encounter
--- OUTSIDE RECORDS SUMMARY | 2024-11-21 13:49 | XMS_ITS | Encounter Summary ---
Author Organization [facility] Address [address] [place] [address] Care Team Providers Care Research Kennel Supervisor Name Role Phone Romero Cedeño MD Primary Care Provi [facility] Encounter Details Date Type Department Care Team (Late st Contact Info) Description 08/30/2024 Lab Requisition [facility] - Main Lab [address] [facility] [place] [phone] Jun Robert MD [address] [place] [address] Unspecified asthma, uncomplicated; Essential (primary) hypertension Social History Tobacco Use [...] on file documented as of this encounter Procedures Procedure Name Priority Date/Time Associated Diagnosis Comments COMPLETE BLOOD COUNT Routine 08/31/2024 5:16 AM EST Unspecified asthma, uncomplicated Essential (primary) hypertension BASIC METABOLIC PANEL Routine 08/31/2024 5:16 AM EST Unspecified asthma, uncomplicated Essential (primary) hypertension documented in this encounter Results * (ABNORMAL) Basic metabolic panel (08/31/2024 5:16 AM EST) Sodium 133 133 - 145 mmol/L LAB CHEMISTRY METHOD 08/31/2024 1:18 PM [facility] Potassium 4.5 3.5 - 5.5 mmol/L LAB CHEMISTRY METHOD 08/31/2024 1:18 PM [facility] Chloride 100 96 - 110 mmol/L LAB CHEMISTRY METHOD 08/31/2024 1:18 PM [facility] CO2 22 21 - 32 mmol/L LAB CHEMISTRY METHOD 08/31/2024 1:18 PM [facility] Anion Gap 11 3 - 11 LAB CHEMISTRY METHOD 08/31/2024 1:18 PM [facility] Glucose 74 70 - 100 mg/dL LAB CHEMISTRY METHOD 08/31/2024 1:18 PM [facility] BUN 8 5 - 25 mg/dL LAB CHEMISTRY METHOD 08/31/2024 1:18 PM [facility] Creatinine 0.39(L) 0.50 - 1.10 mg/dL LAB CHEMISTRY METHOD 08/31/2024 1:18 PM [facility] eGFR 105 >=60 mL/min/1. 73m2 LAB CHEMISTRY METHOD 08/31/2024 1:18 PM [facility] Comment:Calculation based on the??Chronic Kidney Disease Epidemiology Collaboration (CKD-EPI) equation refit??without adjustment for race. BUN/Creatinine Ratio 20.5 LAB CHEMISTRY METHOD 08/31/2024 1:18 PM [facility] Calcium 8.8 8.5 - 10.5 mg/dL LAB CHEMISTRY METHOD 08/31/2024 1:18 PM [facility] Blood Venous blood specimen / Unknown Venipuncture / Unknown 08/31/2024 5:16 AM EST 08/31/2024 9:24 AM EST Jun Robert MD LAB BLOOD ORDERABLES [facility] [address] [place] [address], * (ABNORMAL) Complete blood count (08/31/2024 5:16 AM EST) [facility] WBC 7.0 4.8 - 10.8 K/mcL LAB HEMETOLOGY METHOD 08/31/2024 10:47 AM EST [facility] RBC 3.50(L) 3.80 - 4.80 M/mcL LAB HEMETOLOGY METHOD 08/31/2024 10:47 AM EST [facility] Hemoglobin 10.9(L) 11.5 - 16.0 g/dL LAB HEMETOLOGY METHOD 08/31/2024 10:47 AM [facility] Hematocrit 32.6(L) 35.0 - 47.0 % LAB HEMETOLOGY METHOD 08/31/2024 10:47 AM EST [facility] MCV 94.5 79.0 - 98.0 FL LAB HEMETOLOGY METHOD 08/31/2024 10:47 AM EST [facility] MCH 31.6 27.0 - 32.0 pcg LAB HEMETOLOGY METHOD 08/31/2024 10:47 AM [facility] MCHC 33.4 32.0 - 37.0 g/dL LAB HEMETOLOGY METHOD 08/31/2024 10:47 AM EST [facility] RDW 14.6 11.0 - 15.0 % LAB HEMETOLOGY METHOD 08/31/2024 10:47 AM [facility] Platelets 343 130 - 400 K/mcL LAB HEMETOLOGY METHOD 08/31/2024 10:47 AM [facility] MPV 8.8 7.0 - 11.0 FL LAB HEMETOLOGY METHOD 08/31/2024 10:47 AM EST [facility] NRBC 0.0 <1.0 % LAB HEMETOLOGY METHOD 08/31/2024 10:47 AM EST [facility] NRBC Absolute 0.00 <0.10 K/mcL LAB HEMETOLOGY METHOD 08/31/2024 10:47 AM EST [facility] Blood Venous blood specimen / Unknown Venipuncture / Unknown 08/31/2024 5:16 AM EST 08/31/2024 9:23 AM EST Jun Robert MD LAB BLOOD ORDERABLES [facility] [address] [phone] documented in this encounter Visit Diagnoses Diagnosis Unspecified asthma, uncomplicated Essential (primary) hypertension Unspecified essential hypertension documented in this encounter Care Teams Research Kennel Supervisor Relationship Specialty Start Date End Date Romero Cedeño MD [address] [place] [address] PCP - General Internal Medicine 07/15/21 documented as of this encounter
--- OUTSIDE RECORDS SUMMARY | 2024-11-21 13:49 | XMS_ITS | Encounter Summary ---
Author Organization [facility] Address [address] [place] [address] Care Team Providers Care Automation Lead Name Role Phone Romero Cedeño MD Primary Care [facility] Encounter Details Date Type Department Care Team (Late st Contact Info) Description 09/02/2024 Lab Requisition [facility] - Main Lab [address] [facility] [place] [phone] Jun Robert MD [address] [place] [address] Essential (primary) hypertension Social History [...] Associated Diagnosis Comments COMPLETE BLOOD COUNT Routine 09/04/2024 5:12 AM EST Essential (primary) hypertension COMPREHENSIVE METABOLIC PANEL Routine 09/04/2024 5:12 AM EST Essential (primary) hypertension documented in this encounter Results * (ABNORMAL) Complete blood count (09/04/2024 5:12 AM EST) WBC 7.4 4.8 - 10.8 K/mcL LAB HEMETOLOGY METHOD 09/04/2024 9:44 AM [facility] RBC 3.60(L) 3.80 - 4.80 M/[facility] LAB HEMETOLOGY METHOD 09/04/2024 9:44 AM [facility] Hemoglobin 11.5 11.5 - 16.0 g/dL LAB HEMETOLOGY METHOD 09/04/2024 9:44 AM [facility] Hematocrit 34.9(L) 35.0 - 47.0 % LAB HEMETOLOGY METHOD 09/04/2024 9:44 AM [facility] MCV 96.4 79.0 - 98.0 FL LAB HEMETOLOGY METHOD 09/04/2024 9:44 AM [facility] MCH 31.8 27.0 - 32.0 pcg LAB HEMETOLOGY METHOD 09/04/2024 9:44 AM [facility] MCHC 33.0 32.0 - 37.0 g/dL LAB HEMETOLOGY METHOD 09/04/2024 9:44 AM [facility] RDW 14.4 11.0 - 15.0 % LAB HEMETOLOGY METHOD 09/04/2024 9:44 AM [facility] Platelets 311 130 - 400 K/[facility] LAB HEMETOLOGY METHOD 09/04/2024 9:44 AM [facility] MPV 9.1 7.0 - 11.0 FL LAB HEMETOLOGY METHOD 09/04/2024 9:44 AM [facility] NRBC 0.0 <1.0 % LAB HEMETOLOGY METHOD 09/04/2024 9:44 AM [facility] NRBC Absolute 0.00 <0.10 K/[facility] LAB HEMETOLOGY METHOD 09/04/2024 9:44 AM [facility] Blood Venous blood specimen / Unknown Venipuncture / Unknown 09/04/2024 5:12 AM EST 09/04/2024 9:16 AM EST Jun Robert MD LAB BLOOD ORDERABLES [facility] [address] [place] [address], * (ABNORMAL) Comprehensive metabolic panel (09/04/2024 5:12 AM EST) Sodium 131(L) 133 - 145 mmol/L LAB CHEMISTRY METHOD 09/04/2024 10:06 AM [facility] Potassium 4.0 3.5 - 5.5 mmol/L LAB CHEMISTRY METHOD 09/04/2024 10:06 AM [facility] Chloride 97 96 - 110 mmol/L LAB CHEMISTRY METHOD 09/04/2024 10:06 AM [facility] CO2 22 21 - 32 mmol/L LAB CHEMISTRY METHOD 09/04/2024 10:06 AM [facility] Anion Gap 12(H) 3 - 11 LAB CHEMISTRY METHOD 09/04/2024 10:06 AM [facility] Glucose 79 70 - 100 mg/dL LAB CHEMISTRY METHOD 09/04/2024 10:06 AM [facility] BUN 10 5 - 25 mg/dL LAB CHEMISTRY METHOD 09/04/2024 10:06 AM [facility] Creatinine 0.45(L) 0.50 - 1.10 mg/dL LAB CHEMISTRY METHOD 09/04/2024 10:06 AM [facility] eGFR 102 >=60 mL/min/1. 73m2 LAB CHEMISTRY METHOD 09/04/2024 10:06 AM [facility] Comment:Calculation based on the??Chronic Kidney Disease Epidemiology Collaboration (CKD-EPI) equation refit??without adjustment for race. BUN/Creatinine Ratio 22.2 LAB CHEMISTRY METHOD 09/04/2024 10:06 AM [facility] Calcium 9.2 8.5 - 10.5 mg/dL LAB CHEMISTRY METHOD 09/04/2024 10:06 AM [facility] AST (SGOT) 22 10 - 42 unit/L LAB CHEMISTRY METHOD 09/04/2024 10:06 AM [facility] ALT (SGPT) 23 10 - 60 unit/L LAB CHEMISTRY METHOD 09/04/2024 10:06 AM [facility] Alkaline Phosphatase 79 42 - 121 unit/L LAB CHEMISTRY METHOD 09/04/2024 10:06 AM [facility] Total Protein 6.7 6.0 - 8.0 g/dL LAB CHEMISTRY METHOD 09/04/2024 10:06 AM [facility] Albumin 3.2 3.2 - 5.0 g/dL LAB CHEMISTRY METHOD 09/04/2024 10:06 AM [facility] Total Bilirubin 0.3 0.0 - 1.4 mg/dL LAB CHEMISTRY METHOD 09/04/2024 10:06 AM [facility] Blood Venous blood specimen / Unknown Venipuncture / Unknown 09/04/2024 5:12 AM EST 09/04/2024 9:16 AM EST Jun Robert MD LAB BLOOD ORDERABLES [facility] [address] [place] [address], documented in this encounter Visit Diagnoses Diagnosis Essential (primary) hypertension Unspecified essential hypertension documented in this encounter Care Teams Automation Lead Relationship Specialty Start Date End Date Romero Cedeño MD [address] [place], [place] PCP - General Internal Medicine 07/15/21 documented as of this encounter
--- OUTSIDE RECORDS SUMMARY | 2024-11-21 13:49 | XMS_ITS | Encounter Summary ---
Author Organization [facility] Address [address] [place] [address] Care Team Providers Care Shaft Headman Name Role Phone Romero Cedeño MD Primary Care Provi [facility] Encounter Details Date Type Department Care Team (Late st Contact Info) Description 08/19/2024 Lab Requisition [facility] - Main Lab [address] [facility] [place] [phone] Jun Robert MD [address] [place] [address] Unspecified asthma, uncomplicated; Essential (primary) [...] as of this encounter Plan of Treatment Scheduled Orders Name Type Priority Associated Diagnoses Orde r Schedule Complete blood count Lab Routine Unspecified asthma, uncomplicated Essential (primary) hypertension Ordered: 08/19/2024 Comprehensive metabolic panel Lab Routine Unspecified asthma, uncomplicated Essential (primary) hypertension Ordered: 08/19/2024 documented as of this encounter Visit Diagnoses Diagnosis Unspecified asthma, uncomplicated Essential (primary) hypertension Unspecified essential hypertension documented in this encounter Care Teams Shaft Headman Relationship Specialty Start Date End Date Romero Cedeño MD [address] [place], [place] PCP - General Internal Medicine 07/15/21 documented as of this encounter
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
--- OUTSIDE RECORDS SUMMARY | 2024-11-21 13:50 | XMS_ITS | Data Portability ---
Author Organization [facility], [facility] Address [address] [place] [address] Care Team Providers Care Digital Media Director Name Role Phone SANDEEP REES Primary Care Provide r ANNEMARIE DIAMOND Secretary Board Of Commissioners [facility] Esthetician/Owner [facility] ([employer]) Orthopedic Surgeon JULISA SULLIVAN Plant Manager GABI JASSO Breast Surgeon SUSANNE NGUYEN Data Modeling Architect [facility] Urologist [facility] Electronic Warfare Linguist/I mmunologist [facility] Developmental Therapist Assessment Encounter Date Assessment Date Assessment LastModified by Organization Details LastModified Time 03/01/2024 03/01/2024 The patient consented verbally to have a Pre-PA student in the room observing the appointment today. [email or web address] Not available 03/01/2024 12:43:30 09/12/2024 09/12/2024 Patient agreed t o this visit via phone or secure telehealth platform. Patient understands this is a scheduled visit and the usual procedures with regard to billing and confidentiality apply. Patient was notified that the provider location is Home. Patient location: home During the visit the patient? s medical history and medical record were reviewed. The patient was notified to call our office for worsening or urgent symptoms. [email or web address] Not available 09/12/2024 13:59:38 Plan of Treatment Reminders Order Date Submit Date Provider Last Modified By Organization Details Last Modified Time Details Appointments None record ed. Lab BMP, serum or plasma 2023 024 [email or web address] [facility], [address] [facility] [address], [address], [place], [address], 4 15:00:21 Referral podiat rist referr al - recurr ent bunion 2023 024 Tiago Almazan DPM, [address] [place], [address], 4 12:56:00 cardio logist referr al 2023 024 [email or web address] [facility], [address] [place] [address], [place], [address], 4 10:09:22 gastro entero logist referr al - prior [facility] gastro patien t --need s to establ zabrina with new provid er gut issues in past 2023 024 [email or web address] [facility], [address] [place] [address] [address], [place], [address], 4 09:49:09 Procedures None record ed. Surgeries None record ed. Imaging None record ed. Medication Orders oxybut ynin chlori de ER 10 mg tablet ,exten ded releas e 24 hr 2023 024 [email or web address] [facility][id number], [address] [place], [address], 4 16:28:14 Patient TargetsNo targets recorded. Patient Instructions Encounter Date Encounter Id Patient Instructions Last Modified By Organization Details Last Modified Time 05/17/2024 [id number] I am aware of e inpatient facility discharge medications, the medication list above has been reconciled with those medications and reflects my understanding of an up to date medication list for this patient. [email or web address] Not available 05/16/2024 16:22:24 09/12/2024 [id number] I am aware of e inpatient facility discharge medications, the medication list above has been reconciled with those medications and reflects my understanding of an up to date medication list for this patient. [email or web address] Not available 09/12/2024 09:44:14 Reason for Referral Forming Yardage Control Operator Referral for Buni on recurrent bunion Referring Physician: Estefania Bates, Family Medicine, Encounter Date: 04/05/2024 Developmental Therapist Referral for Pa roxysmal supraventricular tachycardia Referring Physician: Lynn Shelton [facility], Encounter Date: 05/17/2024 Barrel Burner Referral for Flatulence symptom prior [facility] gastro patient --needs to establish with new provider gut issues in past Referring Physician: Mamta Hernandez, Family Medicine, Encounter Date: 05/24/2024 Results Created Date Observation Date Name Description Value Unit Range Abnormal Flag Note LastModifiedBy Organization Detail LastModifiedTime 05/14/20 24 05/14/2024 CT, abdom en + pelvi s No observ ation record ed. [email or web address] daniel [address], [address], 05/16/2024 22:00:06 05/17/20 24 elect rocar diogr am No observ ation record ed. [email or web address] Not Available 2023 12:26:27 Result Notes None recorded. Problems Name Problem SNOMED Code Status Onset Date Resolution Date Notes Provider Name and Address Organization Details Recorded Time Headache 19421425 Completed 200702/18/2017 Removal Reason: duplicat e Sandeep Rob MD [address] [place] [address], [phone] , [facility] 7 13:49:37 Viral enteriti s of intestin e 05477016 Completed 200709/06/2013 Sandeep Rob MD [address] [place] [address], [address] , [facility] 6 14:34:29 Gastroes ophageal reflux disease 612821041 Active 2007 BUCKY BERRIOS PA-C [address] [place] [address], [address] , [facility] 4 13:47:13 Chronic maxillar y sinusiti s 69903425 Active Not Available [facility] 4 18:10:20 Migraine without aura 65871481 Active 2007 Not Available [facility] 4 18:10:20 Extrinsi c asthma with asthma attack Active 2007 Not Available [facility] 4 18:10:20 Influenz a with respirat ory manifest ation other than pneumoni a Completed 200709/06/2013 Sandeep Rob MD [address] [place] [address], [address] , [facility] 6 14:34:29 Fever 574896111 Completed 200709/06/2013 Sandeep Rob MD [address] [place] [address], [address] , [facility] 6 14:34:29 Influenz a 9711863 Completed 09/06/2013 Sandeep Rob MD [address] [place] [address], [address] , [facility] 6 14:34:29 Allergic rhinitis 26687753 Active 2007 Not Available [facility] 4 18:10:20 Acute pharyngi tis 541862639 Completed 09/06/2013 Sandeep Rob MD [address] [place] [address], [address] , [facility] 6 14:34:29 Allergic asthma without status asthmati cus 12613284 Completed 200708/20/2020 Removal Reason: per pulmo, COPD dx Sandeep Rob MD [address] [place] [address], [address] , [facility] 0 12:21:21 Irritabl e bowel syndrome 86291890 Active 2007 BUCKY BERRIOS PA-C [address] [place] [address], [address] , [facility] 4 13:47:21 Acute sinusiti s 84066712 Completed 09/06/2013 Sandeep Rob MD [address] [place] [address], [address] , [facility] 6 14:34:29 Disorder of skeletal system 61810984 Completed 09/06/2013 Sandeep Rob MD [address] [place] [address], [address] , [facility] 6 14:34:29 Acute upper respirat ory infectio n 93522610 Completed 09/06/2013 Sandeep Rob MD [address] [place] [address], [address] , [facility] 6 14:34:29 Pneumoni a 076131115 Completed 200709/06/2013 Sandeep Rob MD [address] [place] [address], [address] , [facility] 6 14:34:29 Chronic hepatiti s C 896912563 Active Not Available [facility] 4 18:10:20 Acute maxillar y sinusiti s 90859475 Completed 200709/06/2013 Sandeep Rob MD [address] [place] [address], [address] , [facility] 6 14:34:29 Hypogamm aglobuli nemia 611568368 Active Not Available [facility] 4 18:10:20 Dysuria 92957363 Completed 200709/06/2013 Sandeep Rob MD [address] [place] [address], [address] , 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 4 13:47:17 Streptoc occal sore throat 10049690 Completed 09/06/2013 Sandeep Rob MD [address] [place] [address], [address] , [facility] 6 14:34:29 Rotator cuff syndrome 1353682 Active Not Available [facility] 4 18:10:20 Osteopen ia 019988644 Active 2015 bone density 6 Not Available [facility] 4 18:10:20 Seasonal allergic conjunct ivitis 972215303 Active 2017 Not Available [facility] 4 18:10:20 Bladder muscle dysfunct ion - overacti ve Active 2017 Not Available [facility] 4 18:10:20 Chronic obstruct aureliano pulmonar y disease 91850830 Active [address] Blackburn consult note 0 Not Available [facility] 4 18:10:20 Recurren t major depressi on 64910350 Active 2019 Not Available [facility] 4 18:10:20 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 4 13:47:11 Hyponatr emia 80727277 Active 2023 [facility] D/C Suma Hillman null, [facility] 4 09:14:51 Blood pressure finding 980713816 Active 2023 [facility] Suma Hillman null, [facility] 4 09:15:21 [facility] hyperten silver 04017400 Active 2023 BUCKY BERRIOS PA-C [address] [place] [address], [address] , [facility] 13:46:58 Fall Active 2023 [facility] D[facility] Suma gray, [facility] 4 12:48:58 Fracture of bone 208173088 Active 2023 Tibia and fibula [facility] D/[facility] Suma gray, [facility] 12:55:06 Problem Notes None recorded. Procedures Surgical History Date Name Laterality Status Provider Name and Address Organization Details Recorded Time 09/12/20 24 Post hospital/SNF follow-up/Transiti onal Care completed BUCKY BERRIOS PA-C [address] [place] [address], [address], [facility] 09/12/2024 09:44:14 08/09/20 24 open reduction of fracture with internal fixation completed Suma Hillman [facility] 09/12/2024 08:59:32 05/17/20 24 Post hospital/SNF follow-up/Transiti onal Care completed Elizabeth Velasquez [facility] 05/16/2024 16:22:24 01/24/20 24 Cardiovascular disease risk reduction counseling completed Sandeep Rob MD [address] [place] [address], [address], [facility] 01/24/2024 16:58:24 08/11/20 22 Medicare Wellness Visit completed Angelica Vilchis MA [facility] 04/23/2022 09:00:20 08/11/20 22 Alcohol use screening completed Angelica Vilchis MA [facility] 04/23/2022 09:00:21 08/11/20 22 Cardiovascular disease risk reduction counseling completed Angelica Vilchis MA [facility] 04/23/2022 09:00:21 08/11/20 22 Medicare Risk for Falls Screen completed Angelica Vilchis MA [facility] 04/23/2022 09:06:30 07/16/20 21 Other (specify) completed Sandeep Rob MD [address] [place] [address], [address], [facility] 07/18/2021 13:04:48 05/21/20 21 Other (specify) completed Sandeep Rob MD [address] [place] [address], [address], [facility] 05/21/2021 12:28:54 08/16/20 20 Medicare Wellness Visit completed [facility] 08/16/2020 14:04:16 08/16/20 20 prevention-cardiov ascular risk reduction counseling completed [facility] 08/16/2020 14:04:16 08/16/20 20 prevention-annual alcohol misuse screening completed [facility] 08/16/2020 14:04:16 08/16/20 20 Telephonic Visit completed [facility] 08/16/2020 14:14:33 08/16/20 20 Advanced Care Planning completed Sandeep Rob MD [address] [place] [address], [address], [facility] 08/16/2020 14:44:09 08/16/20 19 Knee Replacement completed Sandeep Rob MD [address] [place] [address], [address], [facility] 09/09/2019 13:35:59 08/03/20 18 Other (specify) completed Sandeep Rob MD [address] [place] [address], [address], [facility] 09/15/2018 12:07:31 02/19/20 17 Medicare Wellness Visit completed Eugenie Tapia [facility] 02/18/2017 11:14:43 02/18/20 16 Medicare Wellness Visit completed Eugenie Tapia [facility] 02/18/2016 14:05:05 05/16/20 15 Asthma Control Test (12 + years old) completed Sadneep Rob MD [address] [place] [address], [address], [facility] 05/16/2015 11:28:19 06/28/20 14 Medicare Wellness Visit completed Sharee Chavez [facility] 06/28/2014 11:14:48 06/28/20 14 Asthma Control Test (12 + years old) completed Sharee Chavez [facility] 06/28/2014 11:26:42 02/15/20 14 Other (specify) completed Sandeep Rob MD [address] [place] [address], [address], [facility] 04/04/2014 13:50:45 04/17/20 13 Asthma Control Test (12 + years old) completed Eugenie Tapia CMA [facility] 04/17/2013 11:07:50 10/20/19 13 Asthma Control Test (12 + years old) completed Marva Gimenez [facility] 10/20/2012 12:12:08 04/11/20 12 Medicare Wellness Visit completed Eugenie Tapia [facility] 04/11/2012 11:14:40 04/06/20 11 Medicare Annual Wellness Visit completed Marva Gimenez [facility] 04/06/2011 11:17:15 04/06/20 11 Medicare Risk for Falls Screen completed Sandeep Rob MD [address] [place] [address], [address], [facility] 04/06/2011 22:43:48 04/06/20 11 Advanced Care Planning completed Sandeep Rob MD [address] [place] [address], [address], [facility] 04/06/2011 22:43:48 09/04/20 10 Cerumen Removal completed Cris Dunlap [facility] 09/04/2010 13:19:23 11/21/19 10 Cerumen Removal completed Sandeep Rob MD [address] [place] [address], [address], [facility] 11/22/2009 07:45:32 Imaging Results Imaging Date Name Status LastModified by Organization Details LastModified Time 05/14/2024 CT, abdomen + pelvis completed adeola [facility] [address] [place], [address], 05/16/2024 22:00:06 05/17/2024 electrocardiogram completed [email or web address] Informa tion not available 05/17/2024 12:26:27 Procedure Notes None recorded. Medical Equipment None Reported. Allergies Allergen ID Allergen Name Allergen Category Reaction Reaction Severity Criticality Documentation Date Start Date Code Code System Note Provider Name and Address Organization Details Recorded Time 18313 amoxicill in medicatio n Not available Not available Not available 02/04/2010 723 RxNorm sever e diarr hea Not Available [facility] 1 06:05:41 54880 Levaquin medicatio n Not available Not available Not available 02/04/2010 39795 2 RxNorm C. diff. - pt was on it for a full month ; has been on it for less time witho ut issue Not Available [facility] 1 06:05:41 688599 metronida zole medicatio n palpitati ons Not available Not available 04/08/2023 6922 RxNorm unabl e to sleep Sandeep Rob MD [address] [place] [address], [place], [address] [place] [address] 3 16:31:13 Medications Name Sig Start Date Stop Date Status Note LastModified by Organization Details LastModified Time Prescript ion - Prior Authoriza tion Request 08/12 completed Silversc ript question naire Not Available Not Available Not Available celecoxib 200 mg capsule TAKE 1 CAPSULE BY MOUTH TWICE DAILY WITH FOOD NEEDED active Not Available Not Available No t Available [place] Thyroid 60 mg tablet 2007 active Take 1.00 tabs daily 90 mg daily Not Available Not Available Not Available clotrimaz ole 10 mg lionel TAKE 1 TABLET DISSOLVE D SLOWLY IN THE MOUTH BY ORAL ROUTE 5 TIMES PER DAY 09/12 completed Not taking, per pt Not Available Not Available Not Available Qvar 80 mcg/actua tion Metered Aerosol oral inhaler 08/12 completed Not Available Not Available Not Available bupropion HCl SR 150 mg tablet,12 hr sustained -release TAKE 1 TABLET BY MOUTH EVERY MORNING TOTAL DAILY DOSE 450MG *STOP XL WELLBUTR IN 05/15 completed 300 mg 1 tab daily 04/03/21 ds Not Available Not Available Not Available nystatin 100,000 unit/mL oral suspensio n TAKE 5 MILLILIT ERS (500,000 UNIT) BY ORAL ROUTE 3 TIMES PER DAY 05/22 completed Not Available Not Available Not Available venlafaxi ne ER 37.5 mg capsule,e xtended release 24 hr 02/26 completed not taking 12/17/21 ds Not Available Not Available Not Available prednison e 10 mg tablet Four tablets for 4 days, 3 tablets for 3 days, two tablets for two days, one tablet for one day active Not Available Not Available No t Available [place] Thyroid 90 mg tablet TAKE 1 TABLET BY MOUTH ONCE DAILY active Not Available Not Available No t Available doxycycli ne hyclate 100 mg capsule TAKE 1 CAPSULE BY MOUTH TWICE A DAY FOR 5 DAYS FOR SINUS INFECTIO N 03/01 completed not taking 03/01/24 TR Not Available Not Available Not Available ipratropi um 0.5 mg-albute rol 3 mg (2.5 mg base)/3 mL nebulizat ion soln 2007 active Take 3.00 ml 4 times a day Not Available Not Available Not Available clindamyc in HCl 300 mg capsule TAKE 1 CAPSULE BY MOUTH 3 TIMES A DAY UNTIL GONE 04/23 completed not taking xr Not Available Not Available Not Available albuterol sulfate 2.5 mg/3 mL (0.083 %) solution for nebulizat ion inhale contents of 1 vial in nebulize r every 4 hours if needed for wheezing active Not Available Not Available No t Available oxybutyni n chloride ER 10 mg tablet,ex tended release 24 hr TAKE 1 TABLET BY MOUTH EVERY DAY active Not Available Not Available No t Available azithromy louisa 250 mg tablet TAKE 2 TABLETS BY MOUTH TODAY, THEN TAKE 1 TABLET DAILY FOR 4 DAYS DIRECTED 01/23 completed Not Available Not Available Not Available fosfomyci n trometham ine 3 gram oral packet TAKE 1 PACKET BY MOUTH EVERY 72 HOURS 09/12 completed not taking per pt Not Available Not Available Not Available Lidocaine Viscous 2 % mucosal solution GARGLE WITH 15 ML BY MOUTH EVERY 3 HOURS NEEDED 08/11 completed Not Available Not Available Not Available fluconazo le 150 mg tablet Take 1 tablet(s ) every day by oral route for 1 day. 02/12 completed Stopped 08/10/19 DO Not Available Not Available Not Available ketotifen 0.025 % (0.035 %) eye drops 1 drop each eye every 8-12 hours 04/23 completed not taking xr Not Available Not Available Not Available cephalexi n 250 mg capsule 02/12 completed Not Available Not Available Not Available hydrocodo ne 5 mg-acetam inophen 325 mg tablet 02/18 completed Not Available Not Available Not Available magnesium sulfate 500 mg/mL (50 %) injection solution 02/18 completed Not Available Not Available Not Available Avelox 400 mg tablet Take 1 tablet every day by oral route for 10 days. active Not Available Not Available No t Available Adderall 5 mg tablet 2007 active Take 1.00 tabs every day 10 mg daily Not Available Not Available Not Available fluconazo le 200 mg tablet 02/12 completed Not Available Not Available Not Available meloxicam 15 mg tablet TAKE 1 TABLET BY MOUTH EVERY DAY NEEDED FOR 15 DAYS 12/03 completed Not Available Not Available Not Available sucralfat e 1 gram tablet Take 1 tablet twice a day by oral route for 30 days. active Not Available Not Available No t Available promethaz ine 12.5 mg tablet active Not Available Not Available No t Available phenazopy ridine 200 mg tablet TAKE 1 TABLET BY MOUTH EVERY 8 HOURS NEEDED FOR PAIN/BUR KARINE WITH URINATIO N active Not Available Not Available No t Available ondansetr on HCl 4 mg tablet TAKE 1 TABLET BY MOUTH EVERY 6 HOURS NEEDED 04/23 completed Not taking 08/16/20 20 LZ Not Available Not Available Not Available prednison e 20 mg tablet TAKE 2 TABLETS BY MOUTH EVERY DAY FOR 5 DAYS 04/08 completed Not Available Not Available Not Available Prometriu m 100 mg capsule Take 1 cap every day by oral route 2010 active Not Available Not Available Not Avai lable sertralin e 100 mg tablet TAKE 1 TABLET EVERY DAY -STOP 50 MG 12/25 completed Not Available Not Available Not Available prednison e 5 mg tablet TAKE 2 TABLETS BY MOUTH 2 TIMES A DAY FOR BRONCHIT IS FOR 5 DAYS 04/08 completed Not Available Not Available Not Available clindamyc in HCl 150 mg capsule 02/12 completed Stopped 08/10/19 DO Not Available Not Available Not Available Protonix 20 mg tablet,de layed release TAKE ONE TABLET BY MOUTH TWICE DAILY active Not Available Not Available No t Available penicilli n V potassium 500 mg tablet Take 1 tablet twice a day by oral route with meals for 10 days. 09/14 completed Not Available Not Available Not Available amlodipin e 2.5 mg tablet TAKE ONE TABLET EVERY DAY active Not Available Not Available No t Available Zyrtec 10 mg tablet 2007 active Take 1.00 tabs every day Not Available Not Available Not Available metronida zole 500 mg tablet TAKE 1 TABLET BY MOUTH 3 TIMES A DAY FOR 7 DAYS 07/16 completed Not Available Not Available Not Available ciproflox acin 250 mg tablet TAKE 1 TABLET BY MOUTH EVERY 12 HOURS 09/12 completed not taking per pt Not Available Not Available Not Available prochlorp erazine maleate 10 mg tablet TAKE 1 TABLET BY MOUTH EVERY DAY NEEDED active Not Available Not Available No t Available ciproflox acin 500 mg tablet TAKE 1 TABLET BY MOUTH TWICE A DAY 12/03 completed Not Available Not Available Not Available sulfameth oxazole 800 mg-trimet hoprim 160 mg tablet TAKE 1 TABLET BY MOUTH TWICE A DAY FOR 5 DAYS 03/01 completed not taking 03/01/24 TR Not Available Not Available Not Available doxycycli ne monohydra te 100 mg tablet 02/12 completed Stopped 08/10/19 DO Not Available Not Available Not Available tramadol 50 mg tablet TAKE 2 TABLETS (100 MG TOTAL) BY MOUTH EVERY 6 (SIX) HOURS NEEDED. 02/12 completed no longer taking 02/13/20 20 pd Not Available Not Available Not Available vancomyci n 125 mg capsule 04/23 completed not taking xr Not Available Not Available Not Available Serevent Diskus 50 mcg/dose powder for inhalatio n 2007 active Take 1.00 disks twice daily Not Available Not Available Not Available terconazo le 80 mg vaginal supposito ry Insert 1 supposit ory every day by vaginal route for 3 days. active Not Available Not Available No t Available nortripty line 25 mg capsule 02/26 completed not taking 12/17/21 ds Not Available Not Available Not Available oxycodone -acetamin ophen 5 mg-325 mg tablet TAKE 1 TABLET BY MOUTH EVERY 6 HOURS NEEDED FOR PAIN 01/23 completed Not Available Not Available Not Available methenami ne hippurate 1 gram tablet PLEASE SEE ATTACHED FOR DETAILED DIRECTIO NS active Not Available Not Available No t Available hydromorp nishant 2 mg tablet active Not Available Not Available Not Available famotidin e 20 mg tablet TAKE 1 TABLET TWICE A DAY BY ORAL ROUTE NEEDED FOR 90 DAYS. 08/11 completed Not Available Not Available Not Available Maxair Autohaler 200 mcg/Inhal ation breath activated INHALE TWO PUFFS EVERY 4 TO 6 HOURS NEEDED. DO NOT EXCEED 12 PUFFS PER 24 HOURS. 08/12 completed Not Available Not Available Not Available prednisol one acetate 1 % eye drops,kameron pension 12/03 completed during allergie s season 04/03/21 ds Not Available Not Available Not Available dicyclomi ne 20 mg tablet Take 1 tablet 4 times a day by oral route. 2023 active PRN, IBS, Felicia Mcnair D/C Not Available Not Available Not Available cimetidin e 200 mg tablet Take 1 tablet twice a day by oral route for 30 days. 04/23 completed not taking xr Not Available Not Available Not Available doxycycli ne monohydra te 100 mg capsule TAKE 1 CAPSULE BY MOUTH TWICE A DAY DIRECTED 12/25 completed Not Available Not Available Not Available cephalexi n 500 mg capsule TAKE 1 CAPSULE BY MOUTH EVERY 8 HOURS 03/01 completed not taking 03/01/24 TR Not Available Not Available Not Available pantopraz ole 40 mg tablet,de layed release TAKE ONE TABLET BY MOUTH TWICE DAILY active Not Available Not Available No t Available erythromy louisa 5 mg/gram (0.5 %) eye ointment APPLY 0.5 INCH STRIP INTO AFFECTED EYE TWICE A DAY FOR 7 DAYS 05/15 completed Not Available Not Available Not Available oseltamiv ir 75 mg capsule TAKE ONE CAPSULE BY MOUTH 2 TIMES DAILY FOR 5 DAYS FOR INFLUENZ A 08/12 completed Not Available Not Available Not Available levothyro xine 125 mcg tablet 05/16 completed Not Available Not Available Not Available Amerge 2.5 mg tablet TAKE ONE TABLET BY MOUTH EVERY DAY NEEDED-- NO SUBSTITU TION BRAND NAME MEDICALL Y NECESSAR Y 05/16 completed pt wants a 90 day supply [facility] Not Available Not Available Not Available nystatin 100,000 unit/gram topical cream 02/26 completed prn 04/03/21 ds Not Available Not Available Not Available ranitidin e 150 mg tablet TAKE 1 TABLET BY MOUTH IN THE EVENING 02/19 completed recalled Not Available Not Available Not Available Gentle Laxative (bisacody l) 5 mg tablet,de layed release TAKE 4 TABLET NEEDED DIRECTED ORALLY 1 DAYS 04/23 completed not taking xr Not Available Not Available Not Available olopatadi ne 0.1 % eye drops INSTILL 1 DROP INTO AFFECTED EYE(S) BY OPHTHALM IC ROUTE 2 TIMES PER DAY AT AN INTERVAL OF 6 TO 8 HOURS 2019 active Not Available Not Available Not Avai lable warfarin 2 mg tablet TAKE 1 2 (ONE HALF) TABLET BY MOUTH ONCE DAILY OR DIRECTED BY [facility] ANTICOAG ULATION MANAGEME NT SERVICE 08/20 completed no longer taking 02/13/20 20 pd, 08/16/20 20 LZ Not Available Not Available Not Available lidocaine 5 % topical patch active Not Available Not Available Not Available promethaz ine 25 mg tablet active Not Available Not Available Not Available warfarin 5 mg tablet 08/20 completed Not taking 08/16/20 20 LZ Not Available Not Available Not Available vancomyci n 250 mg capsule TAKE 1 CAPSULE BY MOUTH THREE TIMES A DAY 04/08 completed Not Available Not Available Not Available Monistat 3 200 mg vaginal supposito ry Insert 1 supposit ory every day by vaginal route for 3 days. 2010 active Not Available Not Available Not Avai collette Vivelle-D ot 0.0375 mg/24 hr transderm al patch APPLY ONE PATCH TOPICALL Y TWICE WEEKLY active Not Available Not Available No t Available oxybutyni n chloride ER 5 mg tablet,ex tended release 24 hr TAKE 2 TABLETS BY MOUTH EVERY DAY 01/12 completed Not Available Not Available Not Available Senna Laxative 8.6 mg tablet TAKE 2 TABLETS AT BEDTIME TO PREVENT OPIOD INDUCED CONSTIPA TION STOP WHEN LOOSE BOWEL 04/23 completed Not taking 08/16/20 20 LZ Not Available Not Available Not Available omeprazol e 20 mg capsule,d elayed release TAKE 1 CAPSULE BY MOUTH TWICE A DAY 03/01 completed not taking 03/01/24 TR Not Available Not Available Not Available dextroamp hetamine- amphetami ne ER 10 mg 24hr capsule,e xtend release take 1.00 tab daily 03/14 completed not taking 1 xrprn, Haven't been taking 08/16/20 20 LZ Not Available Not Available Not Available monteluka st 10 mg tablet TAKE 1 TABLET BY MOUTH EVERY DAY 2024 active Not Available Not Available Not Avai lable hydrocodo ne 5 mg-acetam inophen 500 mg tablet active Not Available Not Available Not Available prednisol one 15 mg/5 mL oral solution 05/16 completed Not Available Not Available Not Available ranitidin e 150 mg capsule take one tab po in the evening 2011 active pt wants today if possible Not Available Not Available Not Available lidocaine HCl 20 mg/mL (2 %) injection solution active Not Available Not Available Not Available dexametha sone sodium phosphate 4 mg/mL injection solution active Not Available Not Available Not Available Wellbutri n 100 mg tablet 2007 active Take 1.00 tabs every day Not Available Not Available Not Available hydrocort isone 0.5 % topical ointment Apply to the affected area(s) by topical route once per day 2009 active as needed Not Available Not Available Not Available Nasonex 50 mcg/actua tion [place] 2 sprays every day by intranas al route as needed. active Not Available Not Available No t Available cefprozil 250 mg tablet active Not Available Not Available Not Available cefuroxim e axetil 500 mg tablet 05/23 completed Not Available Not Available Not Available levofloxa louisa 500 mg tablet Take 1 tablet every 24 hours by oral route for 21 days. 02/18 completed Not Available Not Available Not Available levofloxa louisa 750 mg tablet TAKE 1 TABLET BY MOUTH EVERY DAY 01/23 completed Not Available Not Available Not Available letrozole 2.5 mg tablet TAKE 1 TABLET BY MOUTH EVERY DAY active Not Available Not Available No t Available methylpre dnisolone 4 mg tablets in a dose pack TAKE 6 TABLETS ON DAY 1 DIRECTED ON PACKAGE AND DECREASE BY 1 TAB EACH DAY FOR A TOTAL OF 6 DAYS 04/23 completed not taking 1 xr Not Available Not Available Not Available oxybutyni n chloride 5 mg tablet TAKE 1 TABLET BY MOUTH TWICE A DAY active Not Available Not Available No t Available phenobarb -hyoscyam n-atropin e-scop 16.2 mg-0.1037 mg-0.0194 mg tablet TAKE 1 TABLET BY MOUTH 3 TIMES A DAY* NOT COVERED BY INSURANC E active Not Available Not Available No t Available ondansetr on 4 mg disintegr ating tablet PLACE 1 TABLET IN THE MOUTH EVERY 12 HOURS FOR 5 DAYS 12/03 completed Not Available Not Available Not Available cefdinir 300 mg capsule TAKE 1 CAPSULE BY MOUTH EVERY 12 HOURS 01/23 completed Not Available Not Available Not Available fluticaso ne propionat e 50 mcg/actua tion nasal spray,[place] pension SPRAY 2 SPRAYS INTO EACH NOSTRIL EVERY DAY active Not Available Not Available No t Available sertralin e 50 mg tablet TAKE 1 TABLET BY MOUTH EVERY DAY 12/03 completed taking 1/2 qd 02/26/22 as Pt taking full tab 08/11/22 as// Tapering off 04/08/23 as Not Available Not Available Not Available itraconaz ole 100 mg capsule 08/11 completed Not Available Not Available Not Available doxycycli ne hyclate 100 mg tablet TAKE 1 TABLET BY MOUTH 2 TIMES A DAY FOR BRONCHIT IS FOR 10 DAYS 04/08 completed Not Available Not Available Not Available dicyclomi ne 10 mg capsule TAKE 1 CAPSULE BY MOUTH THREE TIMES A DAY active Not Available Not Available No t Available Hibiclens 4 % topical liquid PREOP SURGICAL SKIN WASH. PLEASE FOLLOW PROVIDED INSTRUCT IONS FROM DOCTOR. 05/23 completed Not Available Not Available Not Available loratadin e 10 mg tablet TAKE 1 TABLET BY MOUTH ONCE DAILY 03/14 completed Not taking 08/16/20 20 LZ Not Available Not Available Not Available naproxen 500 mg tablet active Not Available Not Available Not Available amoxicill in 500 mg-potass ium clavulana te 125 mg tablet active Not Available Not Available Not Available Ventolin HFA 90 mcg/actua tion aerosol inhaler INHALE 2 PUFFS BY MOUTH EVERY 4 TO 6 HOURS NEEDED FOR WHEEZING active Not Available Not Available No t Available oxycodone 5 mg tablet TAKE 1 TABLET EVERY 4 HOURS NEEDED FOR PAIN 02/26 completed not taking 12/17/21 ds Not Available Not Available Not Available neomycin 3.5 mg/g-poly myxin B 10,000 unit/g-de xameth 0.1 % eye oint APPLY SMALL AMOUNT ON EYELID FOUR TIMES A DAY TO AFFECTED AREA -TO START AFTER THE PROCEDUR E 12/25 completed Not Available Not Available Not Available Amphetami ne Salt Combo 10 mg tablet active Not Available Not Available No t Available belladonn a alkaloids tablet Take 1 tablet(s ) 3 times a day by oral route. 08/[address] Felicia Bhatt Not Available Not Available Not Available Tessalon Perle 100 mg capsule Take 1 capsule 3 times a day by oral route as needed for 10 days. 11/30 completed Not Available Not Available Not Available azithromy louisa 500 mg tablet Take 1 tablet every day by oral route for 7 days. 05/16 completed Not Available Not Available Not Available Robert-Synep hrine (phenylep hrine) 1 % nasal spray USE TWO TO THREE DOSES IN EACH NOSTRIL EVERY 4 HOURS NEEDED 2010 active Not Available Not Available Not Avai lable Oxytrol 3.9 mg/24 hr transderm al patch APPLY 1 PATCH TOPICALL Y TWICE WEEKLY (NOT COVERED MD AWARE NOT CHANGING ) 11/20 completed Not Available Not Available Not Available bupropion HCl XL 300 mg 24 hr tablet, extended release TAKE 1 TABLET BY MOUTH EVERY DAY active 09/12/20 24- per pt takes 150mg daily. TR/RMA Not Available Not Available Not Available bupropion HCl XL 150 mg 24 hr tablet, extended release TAKE 1 TABLET BY MOUTH EVERY DAY 2023 active Not Available Not Available Not Avai lable nystatin 50 million unit oral powder active This medicati on previous ly had a stop reason of entered in error. If necessar y, please contact the listed source to delete this medicati on. Not Available Not Available Not Available nitrofura ntoin monohydra te/macroc rystals 100 mg capsule TAKE 1 CAPSULE BY MOUTH TWICE A DAY 05/17 completed Not Available Not Available Not Available Flovent HFA 110 mcg/actua tion aerosol inhaler INHALE 2 PUFFS TWICE A DAY x 90 days 02/12 completed Not Available Not Available Not Available Flovent HFA 220 mcg/actua tion aerosol inhaler 2007 active Take 2.00 puffs twice daily Not Available Not Available Not Available Gammagard Liquid 10 % injection solution active 15 grams 1 a week 05/23/2021 xr Not Available Not Available Not Available belladonn a alkaloids active Take 2x daily Not Available Not Available Not Available Tylenol Extra Strength 500mg two tabs TID 2023 active Felicia [place] D/C Not Available Not Available Not Available Vitamin D3 25mcg one daily 2023 active Felicia [place] D/C Not Available Not Available Not Available gabapenti n 100mg one at bedtime 2023 active Felicia Be, D/C. Not Available Not Available Not Available multivita min one daily 2023 active Felicia [place] D/C Not Available Not Available Not Available Vivaglobi n 16 % (160 mg/mL) subcutane ous solution 2007 active DIRECTED Not Available Not Available Not Available Advair HFA 230 mcg-21 mcg/actua tion aerosol inhaler Inhale 2 puffs by inhalati on route 2 times per day in the morning andeveni ng 2010 active Not Available Not Available Not Avai lable Vivaglobi n active Not Available Not Available Not Available Pulmicort Flexhaler 180 mcg/actua tion breath activated Inhale 2 puffs every day by inhalati on route for 60 days. 05/15 completed Not Available Not Available Not Available Symbicort 160 mcg-4.5 mcg/actua tion HFA aerosol inhaler INHALE 2 PUFF ORALLY 2 TIMES A DAY 01/23 completed Not Available Not Available Not Available Symbicort 80 mcg-4.5 mcg/actua tion HFA aerosol inhaler INHALE 2 PUFFS BY MOUTH TWICE DAILY 02/12 completed no longer taking 02/13/20 20 pd Not Available Not Available Not Available Xyzal 5 mg tablet Take 1 tablet every day by oral route in the evening for 30 days. 2009 active Not Available Not Available Not Avai lable Omnaris 50 mcg nasal spray [place] 2 sprays every day by intranas al route. 2008 active Not Available Not Available Not Avai lable GaviLyte- G 236 gram-22.7 4 gram-6.74 gram-5.86 gram oral solution 04/23 completed Not Available Not Available Not Available Fluzone (PF) 45 mcg (15 mcg x 3)/0.5 mL intramusc ular syringe inject 0.5 millilit er intramus cularly active Not Available Not Available No t Available Oxytrol For Women 3.9 mg/24 hour transderm al patch APPLY ONE PATCH TOPICALL Y TWICE A WEEK 05/23 completed Not Available Not Available Not Available Fluzone Quad (PF) 60 mcg (15 mcg x 4)/0.5 mL IM syringe inject 0.5 millilit er intramus cularly 02/18 completed Not Available Not Available Not Available Harvoni 90 mg-400 mg tablet 05/16 completed Not Available Not Available Not Available simethico ne 250 mg capsule Take 1 capsule twice a day by oral route. 2023 active prn for upset stomach, prn Felicia Be D/C Not Available Not Available Not Available Pazeo 0.7 % eye drops Please specify directio ns, refills and quantity active Not Available Not Available No t Available Breo Ellipta 200 mcg-25 mcg/dose powder for inhalatio n INHALE 1 PUFF BY MOUTH ONCE DAILY active Not Available Not Available No t Available Fluarix Quad (PF) 60 mcg (15 mcg x 4)/0.5 mL IM syringe inject 0.5 millilit er intramus cularly 02/18 completed Not Available Not Available Not Available albuterol sulf 90 mcg/actua tion breath activated powder inhaler,s ensor Inhale 2 puffs every 4 hours by inhalati on route. active Felicia Norman D/C Not Available Not Available Not Available Gemtesa 75 mg tablet TAKE 1 TABLET BY MOUTH EVERY DAY active Not Available Not Available No t Available Pataday Once Daily Relief 0.2 % eye drops INSTILL 1 DROP INTO AFFECTED EYE(S) BY OPHTHALM IC ROUTE ONCE DAILY 2021 active Not Available Not Available Not Avai lable Paxlovid 300 mg (150 mg x 2)-100 mg tablets in a dose pack TAKE 3 TABLETS BY MOUTH TWICE A DAY FOR 5 DAYS 09/12 completed not taking Not Available Not Available Not Available Vitals Date Recorded Body height Body mass index (BMI) Body weight Heart rate Systolic blood pressure Diastolic blood pressure Systolic blood pressure Diastolic blood pressure Provider Name and Address Organization Details Last Updated DateTime 4 154.94 cm 23.8 kg/m2 49170.3 4 g 72 /min 143 mm[Hg] 70 mm[Hg] 157 mm[Hg] 74 mm[Hg] Nivia Peralta [facility] 4 12:15:56 Date Recorded Systolic blood pressure Diastolic blood pressure Provider Name and Address Organization Details Last Updated DateTime 03/01/2024 130 mm[Hg] 70 mm[Hg] JAYDE Matos [address] [place] [address], [id number], [facility] 03/01/2024 12:27:24 Date Recorded Body height Body mass index (BMI) Body weight Heart rate Systolic blood pressure Diastolic blood pressure Provider Name and Address Organization Details Last Updated DateTime 4 154.94 cm 23.8 kg/m2 55261.6 4 g 72 /min 134 mm[Hg] 74 mm[Hg] Eliana Zamora [facility] 4 09:50:56 Date Recorded Body height Body mass index (BMI) Body weight Heart rate Oxygen saturation Oxygen saturation in Arterial blood by Pulse oximetry Systolic blood pressure Diastolic blood pressure Provider Name and Address Organization Details Last Updated DateTime 4 154.94 cm 23.6 kg/m2 64194.7 5 g 66 /min 96 % 96 % 144 mm[Hg] 82 mm[Hg] Elizabeth Velasquez [facility] 4 11:49:55 Date Recorded Body height Body mass index (BMI) Body weight Heart rate Systolic blood pressure Diastolic blood pressure Systolic blood pressure Diastolic blood pressure Provider Name and Address Organization Details Last Updated DateTime 4 154.94 cm 23.8 kg/m2 71347.6 4 g 88 /min 140 mm[Hg] 72 mm[Hg] 130 mm[Hg] 76 mm[Hg] Angelica Vilchis [facility] 4 15:48:19 Date Recorded Body height Body mass index (BMI) Body weight Heart rate Body temperature Systolic blood pressure Diastolic blood pressure Systolic blood pressure Diastolic blood pressure Provider Name and Address Organization Details Last Updated DateTime 4 154.94 cm 23.5 kg/m2 21937.5 5 g 70 /min 97.8 [degF] 154 mm[Hg] 72 mm[Hg] 148 mm[Hg] 74 mm[Hg] Milagros Hatfield MA [facility] 4 10:17:44 Date Recorded Body height Heart rate Oxygen saturation Oxygen saturation in Arterial blood by Pulse oximetry Systolic blood pressure Diastolic blood pressure Provider Name and Address Organization Details Last Updated DateTime 4 154.94 cm 75 /min 99 % 99 % 100 mm[Hg] 72 mm[Hg] BUCKY BERRIOS PA-C [address] [place] [address] [place], [address] [facility] 4 13:46:32 Date Recorded Systolic blood pressure Diastolic blood pressure Provider Name and Address Organization Details Last Updated DateTime 07/08/2024 164 mm[Hg] 80 mm[Hg] Romi Quispe LPN [facility] 07/08/2024 09:29:28 Social History Question Answer Notes LastModified by Organizat ion Details LastModified Time Tobacco Smoking Status Former Smoker quit age 27/10 years on and off JANES [place], [facility] 04/03/2021 11:16:01 What Is Your Level Of Alcohol Consumption? None Information not available 04/17/2013 Do You Wear A Helmet When Biking? Yes Information not available 02/18/2016 Which Illicit Or Recreational Drugs Have You Used? None Information not available 02/18/2016 Do You Or Have You Ever Used E-cigarettes Or Vape? Never Used Electronic Cigarettes Information not available 02/20/2020 What Is Your Occupation? Retired - Disability Since 1998 Formerly [employer] [email or web address] Information not available 11/23/2012 When Did You Quit Smoking? 16+yearssinc elastcigaret te Information not available 02/18/2016 How Many Days In The Past Year Have You Had A Heavy Drinking Consumption (4+ Female, 5+ Male)? 0 Information not available 04/17/2013 Are There Any Guns Present In Your Home? No Information not available 02/18/2016 Live Alone Or With Others? Alone Dog,- Lives Most Of The Time With Daughter In [place], As She Has [place] Dse. [email or web address] Information not available 04/17/2013 Does The Patient Have Difficulty Speaking Somali? No Information not available 02/18/2016 Does The Patient Have Difficulty Reading Somali? No Information not available 02/18/2016 Patient Has Health Care Proxy Signed And In Chart Yes Information not available 09/12/2018 MOLST Form Signed And In Chart 02/18/2017 Information not available 08/18/2018 CCM Consent Discussion 12/25/2022 [email or web address] Information not available 12/28/2022 Marital Status [id number] In formation not available 09/03/2011 Mosquito Repellent Used Routinely No Information not available 02/18/2016 What Was The Date Of Your Most Recent Tobacco Screening? 05/24/2024 [email or web address] Information not available 05/24/2024 How Many Children Do You Have? 3 1968, 1970, 1973 - 2 Live Locally [email or web address] Information not available 02/06/2014 What Is Your Current Pack Years? 10packyears 8 Information not available 02/18/2016 Seat Belts Used Routinely Yes Information not available 02/18/2016 Are You Sexually Active? No Information not available 09/03/2011 Smoke Alarm In Home Yes Information not available 02/18/2016 Do You Or Have You Ever Used Smokeless Tobacco? Never Used Smokeless Tobacco Information not available 02/20/2020 How Much Tobacco Do You Smoke? No Information not available 08/16/2020 What Types Of Sporting Activities Do You Participate In? None Information not available 02/18/2016 Do You Use Sunscreen Routinely? Yes Information not available 02/18/2016 How Many Years Have You Smoked Tobacco? 10 [email or web address] Information not available 04/03/2021 Do You Or Have You Ever Used Any Other Forms Of Tobacco Or Nicotine? No [email or web address] Information not available 02/26/2022 Sex: Unknown Functional Status None recorded. Mental Status None recorded. Family History Relationship Description Onset Age of this Age Resolved Age Notes LastModified by Organization Details LastModified Time Mother Diabetes mellitus previo usly record ed as Diabet es klopezdelcast illo Not available 02/18/2016 14:36:47 Mother Problem 81 [place] son klopezdelcast illo Not available 02/18/2016 14:36:47 Brother Problem 40 epilep sy klopezdelcast illo Not available 02/18/2016 14:36:47 Father Myocardial infarction 90 90 [email or web address] illo Not available 08/11/2022 11:34:58 Daughter [place]'s chorea 45 51 April 10, 2022 klopezdelcast illo Not available 08/11/2022 11:34:40 Daughter Ogema's disease 54 [facility] illo Not available 12/25/2022 14:08:21 Daughter Drug addict [address] illo Not available 12/25/2022 14:09:02 Daughter Diabetes mellitus type 1 [email or web address] illo Not available 01/24/2024 16:42:09 Son Fragile X syndrome klopezdelcast illo Not available 02/18/2017 12:17:09 Notes:siblings - 8; 2 are de ceased Medical History Condition Response Hypothyroid Y Allergic Rhinitis Y Depression Y Asthma Y OTHER Y Incontinence Y Anemia Y Hepatitis C Y Migraine Headaches Y PSYCHIATRIC Y Fibromyalgia Y Osteopenia Y Irritable Bowel Syndrome Y Gynecological History Statement/Question Response Hysterectomy Y History of Abnormal Pap N Date of LMP Obstetrics History GPAL:G 0 P 0 0 0 0 Immunizations Vaccine Type Date Status Note Provider Nam e and Address Organization Details Recorded Time Influenza, split virus, trivalent, preservative 1 completed Not Available [facility] 11/04/2019 02:27:46 influenza, unspecified formulation 0 completed Not Available [facility] 12/01/2023 18:10:21 Td (adult) 9 completed Not Available [facility] 12/01/2023 18:10:21 influenza, unspecified formulation 3 completed Not Available [facility] 12/01/2023 18:10:21 Pneumococcal conjugate PCV 13 7 completed Not Available [facility] 11/04/2019 02:21:35 influenza, unspecified formulation 4 completed Not Available [facility] 12/01/2023 18:10:21 influenza, unspecified formulation 5 completed Not Available [facility] 12/01/2023 18:10:21 influenza, unspecified formulation 7 completed Not Available [facility] 12/01/2023 18:10:21 pneumococcal polysaccharide PPV23 9 completed Not Available [facility] 11/04/2019 02:24:31 Influenza, high-dose, trivalent, PF 9 completed Not Available [facility] 11/04/2019 02:27:44 Influenza, high-dose, trivalent, PF 8 completed Not Available [facility] 12/01/2023 18:10:21 Tdap 7 completed Not Available [facility] 12/01/2023 18:10:21 Influenza, high-dose, quadrivalent, PF 2 completed Zulema Butcher MA [facility] 08/07/2022 16:32:40 COVID-19, mRNA, LNP-S, bivalent, PF, 50 mcg/0.5 mL or 25mcg/0.25 mL dose 2 completed Sandeep Rob MD [address] [place] [address], [phone], [facility] 08/12/2022 12:15:04 COVID-19, mRNA, LNP-S, PF, 30 mcg/0.3 mL dose 1 completed Not Available [facility] 12/01/2023 18:10:21 COVID-19, mRNA, LNP-S, PF, 30 mcg/0.3 mL dose 1 completed Not Available [facility] 12/01/2023 18:10:21 Influenza, high-dose, quadrivalent, PF 3 completed Amos Mckinley MD [address] [place] [address], [phone], [facility] 07/16/2023 14:12:25 Influenza, high-dose, quadrivalent, PF 1 completed Not Available [facility] 12/01/2023 18:10:21 Past Encounters Encounter ID Performer Location Encounter Start Date Encounter Closed Date Diagnosis/Indication Diagnosis SNOMED-CT Code Diagnosis ICD10 Code Diagnosis Note [id number] FP [facility], OFFICE [address] [place] [place] [address] 2007 10:23:41 12/02/2007 13:32:03 [id number] FP C, OFFICE [address] [place] [address] 01/03/2008 09:24:57 11/07/2008 02:02:29 [id number] FP, C, OFFICE [address] [facility] [place] [address] 01/11/2008 16:10:49 11/07/2008 02:02:29 [id number] FP, C, OFFICE [address] [facility] [place] [address] 01/19/2008 11:34:30 11/07/2008 02:02:29 [id number] C, OFFICE [address] [facility] [place] [address] 01/26/2008 11:02:35 11/07/2008 02:02:29 [id number] C, OFFICE [address] [facility] [place] [address] 03/06/2008 11:18:14 11/07/2008 02:02:29 [id number] C, OFFICE [address] [facility] [place] [address] 05/14/2008 10:57:31 11/07/2008 02:02:29 [id number] [facility] - C [address] [facility] [place] [address] 05/14/2008 12:57:02 05/14/2008 12:57:10 [id number] , C, OFFICE [address] [facility] [place] [address] 07/25/2008 14:34:15 11/07/2008 02:02:29 [id number] , C, OFFICE [address] [facility] [place] [address] 08/01/2008 11:16:59 11/07/2008 02:02:29 [id number] FP, C, OFFICE [address] [facility] [place] [address] 01/22/2009 09:54:53 01/24/2009 10:22:38 [id number] FP, C, OFFICE [address] [facility] [place] [address] 11/21/2009 14:54:45 11/28/2009 14:44:27 [id number] FP, C, OFFICE [address] [facility] [place] [address] 01/27/2010 16:04:36 01/29/2010 15:17:46 [id number] FP, C, OFFICE [address] [facility] [place] [address] 02/04/2010 16:31:04 02/07/2010 14:15:05 [id number] FP, C, OFFICE [address] [facility] [place] [address] 02/13/2010 14:46:13 02/18/2010 14:58:53 [id number] , C, OFFICE [address] [place] [facility] [place] [address] 05/12/2010 15:12:24 05/16/2010 08:06:42 [id number] , C, OFFICE [address] [place] [facility] [place] [address] 09/04/2010 12:21:43 09/09/2010 15:47:01 [id number] , C, OFFICE [address] [facility] [place] [address] 09/16/2010 09:40:06 09/19/2010 15:09:08 [id number] FP, C, OFFICE [address] [facility] [place] [address] 10/21/2010 14:17:59 10/24/2010 15:21:07 [id number] Radiology , [facility] [address] [facility] [place] [address] 6 10/21/2010 15:05:35 10/22/2010 13:45:33 [id number] FP, C, OFFICE [address] [facility] [place] [address] 11/07/2010 14:49:04 11/13/2010 12:31:37 [id number] Sandeep Rob MD FP, C, OFFICE [address] [place] [address] 11/20/2010 11:30:36 11/21/2010 15:20:04 [id number] Radiology , [facility] [address] [place] [address] 6 11/20/2010 12:02:26 11/21/2010 11:25:38 [id number] FP, C, OFFICE [address] [facility] [address] 04/06/2011 10:55:57 04/06/2011 12:01:05 [id number] FP, C, OFFICE [address] [place] [address] 05/05/2011 11:58:19 05/05/2011 15:39:57 [id number] FP, C, OFFICE [address] [place] [address] 6 09/17/2011 16:24:22 09/17/2011 16:41:47 [id number] FP, C, OFFICE [address] [place] [address] 10/23/2011 11:54:17 10/23/2011 12:23:15 [id number] FP, C, OFFICE [address] [facility] [place] [address] 12/01/2011 13:28:18 12/01/2011 13:57:09 [id number] FP, C, OFFICE [address] [facility] [address] 03/29/2012 16:02:40 03/29/2012 16:47:44 [id number] FP, C, OFFICE [address] [facility] [address] 04/11/2012 10:58:32 04/11/2012 12:08:45 [id number] FP, C, OFFICE [address] [place] [address] 6 06/15/2012 15:53:10 06/15/2012 17:28:52 [id number] MD ALEJANDRO Moon, C, OFFICE [address] [facility] [address] 07/01/2012 11:30:43 07/01/2012 15:02:14 [id number] Sandeep Rob MD , [facility], OFFICE [address] [facility] [place] [address] 10/20/2012 12:00:36 10/20/2012 12:51:26 [id number] Eugenie Tapia [facility], [facility], OFFICE [address] [facility] [place] [address] 11/23/2012 11:51:36 11/23/2012 13:04:15 [id number] José Miguel Jessica MD Radiology , [facility] [address] [facility] [place] [address] 11/23/2012 13:04:28 11/24/2012 11:36:50 [id number] Thanh Zaman , [facility], OFFICE [address] [facility] [place] [address] 04/04/2013 10:28:00 04/04/2013 12:29:35 [id number] , [facility], OFFICE [address] [facility] [place] [address] 6 04/11/2013 13:39:25 04/11/2013 14:08:18 [id number] Sharee Chavez [facility], [facility], OFFICE [address] [facility] [place] [address] 6 04/17/2013 10:57:01 04/17/2013 11:57:27 [id number] Xin Trejo , [facility], OFFICE [address] [facility] [place] [address] 6 05/23/2013 10:17:02 05/23/2013 13:24:06 [id number] Randa Gimenez MA , [facility], OFFICE [address] [facility] [place] [address] 6 07/03/2013 09:09:50 07/03/2013 12:02:11 Chronic low back pain 500258187 Knee pain 96326105 [id number] Liz Delvalle NP FP, [facility], OFFICE [address] [facility] [place] [address] 12/18/2013 09:26:57 12/18/2013 10:29:38 Pharyngitis 512163279 [id number] Liz Delvalle NP , [facility], OFFICE [address] [place] [address] 6 02/06/2014 14:47:54 02/06/2014 16:16:28 Rotator cuff syndrome 2356313 rotator cuff [id number] Sharee Chavez CMA , [facility], OFFICE [address] [place] [address] 6 04/06/2014 10:47:51 04/06/2014 11:18:28 Urinary tract infectious disease 15366092 Push fluids f/u if no improvemen t in 72 hours or for fever or back pain. [id number] Bucky Brittrancesc o , [facility], OFFICE [address] [place] [address] 6 06/28/2014 11:07:38 06/28/2014 12:50:53 Asthma [id number] Counseling [id number] Adult heal th examination 738645740 see Risk Assessment and Lifestyle Change Counseling section above Chronic hepatitis C [id number] Hypogammaglobulinemia 399560236 Increased frequency of urination 212427994 Hypothyroidism 13044343 Osteopenia 071376280 Bilateral hearing loss 08057249 [id number] Bucky Camachosc o , [facility], OFFICE [address] [place] [address] 6 08/07/2014 14:30:15 08/07/2014 15:07:01 Upper respiratory infection 05341281 Fatigue 94703003 Muscle weakness 83945412 [id number] Sandeep Rob MD , [facility], OFFICE [address] [place] [address] 6 05/16/2015 10:50:23 05/17/2015 11:27:36 Intrinsic asthma 626442295 Chronic hyponatremia 26349943 Dysuria 14909919 [id number] Sandeep Rob MD , [facility], OFFICE [address] [place] [address] 6 02/18/2016 13:58:46 02/18/2016 14:57:58 Adult health examination 961299479 Z00.00 see Risk Assessment and Lifestyle Change Counseling section above Counseling 727995986 Z71 .9 Chronic hepatitis C [address] Bhatt. Hypogammaglobulinemia [address] Ivana Ruiz Screening mammography 24 710309 Z12.31 Nausea present 402316267 R11.0 Degenerati ve joint disease involving multiple joints 241855883 M15.9 Allergic a sthma without status asthmaticus 77117734 J45.909 Dr Blackburn - pulmo Hypothyroidism 04758539 E03.9 Dr Peña [facility] Migraine without aura 56 244206 G43.009 Osteopenia 792760605 M85 .80 [id number] Sandeep Rob MD , [facility], OFFICE [address] [place] [address] 6 02/18/2017 11:11:35 02/18/2017 12:15:11 Adult health examination 348349315 Z00.00 see Risk Assessment and Lifestyle Change Counseling section above Counseling 649502470 Z71 .9 Hypogammaglobulinemia [address] Ivana Ruiz Chronic hepatitis C [address] Bhatt. Gastroesop hageal reflux disease 710550114 K21.9 Chronic ma xillary sinusitis 46540289 J32.[address] [facility] Irritable bowel syndrome 41856590 K58.9 Migraine without aura 56 782029 G43.009 Active or passive immunization 768552962 Z23 Urinary incontinence 165 696322 R32 [id number] Sandeep Rob MD , [facility], OFFICE [address] [place] [address] 6 08/12/2017 13:44:16 08/12/2017 15:46:07 Fracture of patella 28499063 S82.001A [id number] Liz Delvalle NP , [facility], OFFICE [address] [place] [address] 6 02/10/2018 10:00:13 02/10/2018 10:26:19 Seasonal allergic conjunctivitis 549066067 H10.13 [id number] Sandeep Rob MD , [facility], OFFICE [address] [place] [address] 6 09/15/2018 11:28:32 09/15/2018 12:16:56 Active or passive immunization 627712648 Z23 Hypogammaglobulinemia [address] Ivana P[place]agua [place] Gastroesop hageal reflux disease 428360886 K21.9 Allergic a sthma without status asthmaticus 39402410 J45.909 Dr Bere garcia Osteopenia 946529730 M85 .80 Screening mammography 24 341588 Z12.31 Bladder mu scle dysfunction - overactive 319637127 N32.[address] Peña [facility] Pain in left knee 409305 6961 84399 M25.756 [id number] Sandeep Rob MD FP, [facility], OFFICE [address] [place] [address] 01/06/2019 11:49:41 01/06/2019 16:03:56 Osteoporosis 85434252 M81.0 Hypogammaglobulinemia [address] Buck Family his tory of diabetes mellitus 666331556 Z83.3 Osteoarthr itis of knee 068875311 M17.12 Pain of le ft elbow joint 1511833020 0492573 M25.159 [id number] Sandeep Rob MD , [facility], OFFICE [address] [place] [address] 08/10/2019 10:40:43 08/10/2019 11:15:59 Osteoarthritis of left knee joint 7872836335 05652 M17.12 Allergic a sthma without status asthmaticus 75465340 J45.909 Dr Bere garcia Hypogammaglobulinemia [address] Buck Bladder mu scle dysfunction - overactive 560176342 N32.81 Active or passive immunization 351276102 Z23 Heartburn 69847895 R12 [id number] Diane Biggs , [facility], OFFICE [address] [place] [address] 02/13/2020 14:54:31 02/14/2020 15:48:59 Urinary incontinence 195055833 R32 Cough 80732393 R05 Given asthma and current symptoms, recommend COVID-19 testing. Will have pt f/u with PCP next week. [id number] Sandeep Rob MD FP, [facility], OFFICE [address] [place] [address] 02/20/2020 11:04:08 02/21/2020 11:11:07 Allergic asthma without status asthmaticus 17644917 J45.909 Dr Bere garcia Gastroesop hageal reflux disease 535730641 K21.[address] Peña [facility] Hypogammaglobulinemia [address] Buck Acute uppe r respiratory infection 15467463 J06.9 [id number] Sandeep Rob MD , [facility], OFFICE [address] [place] [address] 08/16/2020 14:03:50 08/21/2020 13:10:31 Adult health examination 972165669 Z00.00 see Risk Assessment and Lifestyle Change Counseling section above Counseling 845911517 Z71 .9 including cardiovasc ular risk reduction counseling Depression screening 171 492115 Z13.89 depression screening tool administer ed, entered into emr, scored and discussed, time greater than 7.5 minutes Screening for alcohol abuse 009564890 Z13.39 Advance di rective discussed with patient 473821032 Z71.89 Gastroesop hageal reflux disease 901194318 K21.9 Chronic ob structive pulmonary disease 74281367 J44.9 Dr Bere beyer ist Screening mammography 24 543017 Z12.31 Osteopenia 780979172 M85 .[address] Peña [facility] Overactive urinary bladder 417208003 N32.81 Recurrent major depression 09276401 F33.9 Dr Bunn Hypogammaglobulinemia [address] Buck [id number] Sandeep Rob MD , [facility], OFFICE [address] [place] [address] 03/14/2021 12:01:48 03/18/2021 11:02:01 Recurrent major depression 91912570 F33.9 Dr Bunn Chronic ob structive pulmonary disease 20210384 J44.9 Dr Bere arzolaolog ist Hypogammaglobulinemia [address] Buck Irritable bowel syndrome 11711846 K58.9 Adult heal th examination 733548762 Z00.00 see Risk Assessment and Lifestyle Change Counseling section above [id number] JAYDE Eisenberg , [facility], OFFICE [address] [place] [address] 6 04/03/2021 10:58:43 04/03/2021 11:39:37 Mass of left breast 1119708100 9298133 N63.20 Will get diagnostic mammo for L breast lesionPt to contact the office for any worsening [id number] Kasey Maldonado MD , [facility], OFFICE [address] [place] [address] 05/23/2021 11:35:20 05/23/2021 12:08:40 Gastroesophageal reflux disease 517538264 K21.9 Has been taking omeprazole BID. Discussed prn usage is advised. Pt wants to try something else given side effect risks -- will rx pepcid to use prn. Entropion 03594922 H02.0 09 Cleared for entropion surgery with Dr. Sullivan. Paperwork completed. 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 [id number] Kasey Maldonado MD , [facility], OFFICE [address] [place] [address] 12/17/2021 10:58:19 12/17/2021 11:51:19 Screening for malignant neoplasm of colon 727416225 Z12.11 Common penny iable agammaglobulinemia 29692781 D80.1 F/b allergy. Chronic ma xillary sinusitis 85247970 J32.0 Recurrent R maxillary sinus, has been on cefdinir x 10 days from ENT and it's finally working. Will extend course another 10 days. If no improvemen t, would send urgent referral to ENT (currently scheduled with [facility] for February). [id number] Sandeep Rob MD , [facility], OFFICE [address] [place] [address] 02/26/2022 11:32:41 02/26/2022 12:17:38 Adhesive capsulitis of left shoulder 0534760075 44284 M75.02 Overactive urinary bladder 582283932 N32.81 Allergic conjunctivitis 531665442 H10.10 H10.13 [id number] Sandeep Rob MD , [facility], OFFICE [address] [place] [address] 6 08/11/2022 10:53:39 08/11/2022 12:02:06 Adult health examination 880822270 Z00.00 see Risk Assessment and Lifestyle Change Counseling section above Counseling 554380898 Z71 .9 including cardiovasc ular risk reduction counseling Depression screening 171 809083 Z13.31 depression screening tool administer ed, entered into emr, scored and discussed, time greater than 7.5 minutes Screening for alcohol abuse 224165879 Z13.39 Active or passive immunization 480183781 Z23 Pt declines Shingles vac 04/23/22 Pt completed flu vac 08/07 and would like COVID today 08/11/22 as Chronic ob structive pulmonary disease 32493725 J44.9 Dr Blackburn - pulmonolog ist Gastroesop hageal reflux disease 863806326 K21.9 Hypogammaglobulinemia [address] Buck Hypothyroidism 72373703 E03.9 Dr Peña [facility] Recurrent major depression 60839975 F33.9 Dr Bunn - retired Allergic rhinitis 838164 04 J30.9 Overactive urinary bladder 373380290 N32.81 Infiltrati ng ductal carcinoma of breast, stage 1 010952850 C50.012 microinvas aureliano ductal CA grade 1; dx: April 2021 on letrozole [id number] Zamzam Hawkins DNP, [employer]-BC , [facility], OFFICE [address] [place] [address] 07/02/2022 17:16:28 07/17/2022 09:06:04 Acute upper respiratory infection 06675371 J06.9 Educated patient that URI is a viral illness of the upper airways. It is not bacterial and does not benefit from antibiotic s. Average duration of URI is 7-10 days but in a recent trial, treatment at 7-10 days of illness with antibiotic s, intranasal steroids, or placebo did not alter natural history at 3 weeks. Recommende d symptomati c treatments including otc analgesics , avoid NSAIDS, semi-uprig ht sleep position, and nasal saline rinses , supportive care. Return for fevers > 101 for 3 days, worsening sinus pain, or failure to resolve in 2-4 weeks. Sore throat 019023437 J0 2.9 R/O covidRapid strep Neg , send cultureSup portive care, fluids, restIf new or worsening return for re-eval. Cough 08142463 R05.9 Cough, mild, and dry-monito r-suspect viral etiology-n o antibiotic s at this time, no increase sputumf/U if new or worsening [id number] DEAN BENSON NP FP, [facility], OFFICE [address] [place] [address] 08/07/2022 14:34:32 08/27/2022 07:44:20 Active or passive immunization 834559628 Z23 Pre-surger y evaluation 621838207 Z01.818 - pt presenting for pre-op physical and EKG- EKG WNL- Revised Cardiac Risk Index (RCRI): score 0, class I, 0.4% risk 1. High-risk type of surgery (examples include vascular surgery and any open intraperit wilde or intrathora cic procedures ) 02. History of ischemic heart disease (history of myocardial infarction or a positive exercise test, current complaint of chest pain considered to be secondary to myocardial ischemia, use of nitrate therapy, or ECG with pathologic al Q waves; do not count prior coronary revascular ization procedure unless one of the other criteria for ischemic heart disease is present) 03. History of heart failure 04. History of cerebrovas cular disease 05. Diabetes mellitus requiring treatment with insulin 06. Preoperati ve serum creatinine >2.0 mg/dL (177 micromol/L ) unknown 0 class I 0.4% risk Patient is cleared for surgery.Ok to hold celecoxib x 2 weeks [id number] Sandeep Rob MD FP, [facility], OFFICE [address] [place] [address] 12/25/2022 13:33:06 12/25/2022 14:22:07 Overactive urinary bladder 145206396 N32.81 [address] Peña [facility] Recurrent major depression 61632149 F33.9 Dr Bunn - retired Osteopenia 889844748 M85 .80 Irritable bowel syndrome 06317372 K58.9 Gastroesop hageal reflux disease 101005607 K21.9 Chronic ob structive pulmonary disease 34241523 J44.9 Dr Blackburn - pulmonolog ist Degenerati ve joint disease involving multiple joints 895464646 M15.9 Family his tory of Ogema disease 574815373 Z83.49 daughter dx: age 54 [id number] Amos Mckinley MD , [facility], OFFICE [address] [place] [address] 01/07/2023 14:31:27 01/08/2023 07:29:35 Lightheadedness 236717281 R42 ligheaded and fatigue with fhx addisons. Suspect vasovagal. Hyponatremia 71928429 E8 7.1 recheck labs, do Mg [id number] JAYDE Yanez , [facility], OFFICE [address] [place] [address] 6 01/21/2023 11:57:38 01/25/2023 10:40:34 Acute exacerbation of chronic obstructive pulmonary disease 739815890 J44.1 - Will treat as COPD exacerbati on given shortness of breath and productive cough- reassuring O2 99%- Antibiotic and prednisone as below; pt prefers doxycyline to z-dl historical ly. med risks/bene fits/side effects reviewed, pt agrees to take as prescribed - Continued inhalers as needed for cough or shortness of breath- Reviewed red flag symptoms and when to seek emergency care. Elevated blood-pressure reading without diagnosis of hypertension 541213806 R03.0 BP above goalsuspec t due to acute illness and increased inhaler/OT C usecontinu e home checks, call if consistent ly >130/80 once feeling better [id number] , [facility], OFFICE [address] [place] [address] 6 04/08/2023 15:33:22 04/09/2023 10:15:29 Irritable bowel syndrome 12939891 K58.9 Left lower quadrant pain 645284489 R10.32 Hypogammaglobulinemia [address] Buck [id number] Amos Mckinley MD , [facility], OFFICE [address] [place] [address] 07/16/2023 13:27:41 07/17/2023 21:59:46 Active or passive immunization 282633263 Z23 Shingles - reminded 07/16/23 ccFlu - will get today 07/16/23 cc Degenerati ve joint disease involving multiple joints 351451342 M15.9 was using too much celebrex. Informed can not write for 3 tabs a day of the celebrex. Can take meloxicam until the 2 wks are up. infromed to add acetaminof en. [id number] Estefania Bates PA-C , [facility], OFFICE [address] [place] [address] 12/03/2023 17:33:22 12/06/2023 10:12:34 Upper respiratory infection 54009759 J06.9 Patient presents with symptoms consistent with viral infection. No evidence of pneumonia on exam. Discussed supportive care: pushing fluids, rest, nasal saline and Mucinex as needed. Encouraged to follow up if symptoms persist for more then 10 days or if they are worsening. Discussed natural course of viral illnesses and lack of evidence for treating with antibiotic s. Pain in throat 712249493 R07.0 - strep and covid negative [id number] Sandepe Rob MD , [facility], OFFICE [address] [place] [address] 01/24/2024 15:39:16 01/25/2024 07:50:48 Adult health examination 172453295 Z00.00 see Risk Assessment and Lifestyle Change Counseling section above Depression screening 171 497876 Z13.31 depression screening tool administer ed Screening for alcohol abuse 573551989 Z13.39 Alcohol use screening tool administer ed Screening for malignant neoplasm of prostate 846551462 Z12.5 If you have a prostate, the [place] Preventive Services Task Force advises not to make a PSA test a part of the standard exam for ages 55-69. Instead they recommend the uncertaint ies about the test be discussed and ordered only if a patient still wants it. Over their lifetimes as many as 50% or more of persons with a prostate will develop prostate cancer but only 2% of them will of prostate cancer. For those who chose to be screened for prostate cancer, if 1000 are screened with a psa test over a 15 year period there might be 1-2 deaths prevented however 235 persons will have a biopsy with risk of infection, bleeding and pain, 100 will have their prostate removed by surgery or radiation treatments and 60-70 of those will suffer incontinen ce or impotence. There is also the risk of anesthesia or radiation complicati ons. For those over 70, prostate cancer screening offered no benefit and risked pain, worry, expense and possibly shorter life expectancy . Chronic ob structive pulmonary disease 62898003 J44.9 See HPI for detailed history GOLD air flow assessment grade {{1 2 3 4} } mMCR dyspnea scale grade {{0 1 2 3 4}} RASHAD assessment tool group {{A, RX recommenda tion: CONCHITA (ex, Proair) or AMADO (ex, Atrovent) B, RX recommenda tion: LABA ( ex, Serevent) or LAMA (Ex, Spiriva) E, Rx recommende d: LAMA (ex, Spiriva) and LABA (ex. Serevant) or LAMA-LABA combinatio n (ex, Anoro Ellipta), add ICS if blood eosinophil s over 300 or concomitan t asthma (ex, Trelegy)}} COPD is {{Stable, no change in symptoms, stable or improved exercise tolerance, no flareups W orse, symptoms worsening, worse exercise tolerance, flare ups}}{{yes /COPD not controlled no/COPD controlled }} Need to adjust/nancy nge/add medication {{yes/COPD not controlled no/COPD controlled }} If yes, change in medication ____ Risk factor modificati on/further recommenda tions: Smoking cessation {{yes no}} Add oxygen therapy {{yes no}} Start/Incr ease exercise {{yes no}} Update vaccinatio n {{yes no}} Pulmonary rehab {{yes no}} Imaging needed {{yes no}} Repeat PFT {{yes no}} Rescue inhalers, ___ , are to be used as needed only, for shortness of breath, persistent coughing or wheezing. Maintenanc e inhalers, ___ , are to be used every day as instructed . Migraine without aura 56 211331 G43.[address] Peña [facility] Gastroesop hageal reflux disease 204854146 K21.9 Acute maxi llary sinusitis 05266641 J01.00 Counseled by member of primary health care team 826485523 Z71.9 Today we discussed ways to reduce your 10-year cardiovasc ular disease risk. Things that decrease risk for cardiovasc ular events include eating a diet high in fiber (fruits and vegetables ) and low in simple carbohydra marc (bread, rice, pasta, alcohol, potatoes), decreasing processed foods, limiting juice and alcohol, limiting saturated fats (butter, ice cream, and cheeses), and adding regular daily activity. Having blood pressure that is <130/80. Having well controlled cholestero l (LDL and triglyceri rusty) by eating a healthy diet and taking medication s when necessary. Managing daily stress with meditation or yoga. Depending on your other cardiovasc ular risks your practition er may recommend taking daily aspirin. 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 Discussed white coat HTN. Patient typically with high readings here on initial presentati on and then decrease on recheck. No sx hypertensi on. Discussed checking at home and fu for persistent ly elevated readings. [id number] LEILANI Raymond, [facility], OFFICE [address] [place] [address] 04/05/2024 09:39:24 04/05/2024 12:56:00 Active or passive immunization 024646453 Z23 shingles: reminded available should pt decide to have Overactive urinary bladder 569965739 N32.81 Stable on oxybutynin , would like refill Bunion 425170720 M21.61 9 Patient is s/p bilateral bunionecto my several years agoBunion of left hallux has returned along with worsening hammertoes of both feetWould like referral to Dr. Almazan, sent Skin lesion 98426751 L98 .9 New skin lesion first noticed a few weeks ago on LLEExam is not concerning she has dermatolog y appointmen t next month as wellProvid ed her with a ruler to measure the spotf/u as needed Elevated blood-pressure reading without diagnosis of hypertension [id number] R03.0 The patient's pressures have been mildly elevated in the office but are below goal at homeShe will check her pressures at home and f/u as neededDisc ussed possibilit y of medication s if pressures are persistent ly elevated [id number] LYNN SHELTON MD , [facility], OFFICE [address] [place] [address] 05/17/2024 11:30:31 05/17/2024 12:44:14 Paroxysmal supraventricular tachycardia [id number] I47.10 Extra beats on EKG and episodes of rapid heart rate periodical ly. Once in a while dizzy but mostly asymptomat ic. Regardless she would like to discuss with cardiology and I think this is a good idea. Will send referral. Flatulence symptom [phone] R14.3 Improving with beano. She will call if not resolving. Hyponatremia [id number] E8 7.1 Eating better now. Will repeat labs in 1 week. Irregular heart beat [id number] R00.8 Irregular/ extra beats on exam and EKG. Asymptomat ic. [id number] JAYDE Matos , [facility], OFFICE [address] [place] [address] 05/24/2024 10:00:12 05/24/2024 14:23:48 Active or passive immunization [id number] Z23 shingles - declines Flatulence symptom 36796 8004 R14.3 pt [facility] ently feels wellusing gas x with good relief Essential hypertension [id number] I10 currently not at goalpatien t states she takes amlodipine only as needed due to hypotensio nadvised to take today and daily and notify us with hypo or hypertensi ondiscusse d bp control and checking at home Pain of left hand [id number] 64636 M79.642 bruising and swelling from traumatic blood drawdiscus sed possible superficia l phlebitisa dvised heat or ice whichever helpfultyl enol or ibuprofenf u as needed [id number] BUCKY BERRIOS PA-C , [facility], OFFICE [address] [place] [address] 09/12/2024 13:26:07 09/12/2024 14:37:47 Fall W19.XXXD s/p mechanical fall last mo with residual RLE fractures requiring ORIFhospit al notes reviewedfa ll precaution s reviewedpl ans as below Fracture o f tibia AND fibula [id number] S82.91XS continue w/c and walker use as needed; does not require device at baselinef/ u with orthopedic s as planned next monthpain controlled at this timeVNA PT/OT following Insomnia [id number] G47.0 0 improved as of last nightwill continue to monitor and reach out if she'd like to restart the trazodone (50mg)Urge nt care at [address]: Wednesday & Wednesday 8am-12pm. Call . Chronic ob structive pulmonary disease [id number] J44.9 well controlled at this timeon Breo for maintenanc e, albuterol as needed (and has not required)O 2 99% today on Jose/u with PCP in a few months - due for [place] in January Essential hypertension 87968133 I10 BP at goalcontin ue current regimenf/u with PCP in a few months - due for [place] in January Health Concerns Section Related Observation LastModified by Organization Detai ls LastModified Time None Recorded Concern Status LastModified by Organization Details LastModified Time None Recorded Advance Directives Directive None Recorded Payers Encounter Date Sequence Insurance Name Policy Number Policy Alegre Covered Member ID Alegre Member ID Guarantor Name 03/01/2024 2 [place] [id number] Marilyn Abdalla Carron [id number] Marilyn Carron 03/01/2024 1 [place] Marilyn Rm Carron [id number] Marilyn Carron 04/05/2024 2 [place] [id number] Marilyn Rm Carron [id number] Marilyn Carron 04/05/2024 1 [place] Marilyn Rm Carron [id number] Marilyn Carron 05/17/2024 2 [place] [id number] Marilyn Abdalla Carron [id number] Marilyn Carron 05/17/2024 1 [place] Marilyn Rm Carron [id number] Marilyn Carron 05/24/2024 2 [place] [id number] Marilyn Abdalla Carron [id number] Marilyn Carron 05/24/2024 1 [place] Marilyn Rm Carron [id number] Marilyn Carron 09/12/2024 2 [place] [id number] Marilyn Abdalla Carron [id number] Marilyn Carron 09/12/2024 1 [place] Marilyn J Carron [id number] 6 Marilyn Carron Notes Date Note Type Note Provider Name and Address Organization Details Recorded Time 4 text/html 03/01/24presents to check BPno dx hypertensiondoesn't check at homewas at [place] for appt --highwent to [facility] for UTI --high 171/84 no chest painhas had headaches but has seasonal allergiesno vision changes mom and dad with HTN JAYDE Matos [address] [place] [address], [phone], [facility] 03/01/2024 12:44:29 4 text/html 04/05/24, requesting podiatry referral-has moderate to severe arthritis of bilateral toes-bilateral bunionectomy, hammertoes, and crooked toe-has antalgic gait that is worsening-left foot is in worse condition than the right-days she can hardly walk-in the winter Abnormal skin lesion-noticed a new spot on her right lateral leg-has dermatology appointment coming up Elevated blood pressure-blood pressures have been mildly elevated at the office-pressures are normal at home but elevated when she is sick-she recently had covid and a UTI that elevated her pressures Overactive bladder-needs refill on oxybutynin Estefania Bates PA-C [address] [place] [address], [phone], [facility] 04/05/2024 10:39:32 4 text/html Minimal PO intake while not feeling wellWent to ED for ? diverticulitis, found to be hyponatremicAdmitted, had elevated BP, reports some episodes of intermittent tachycardiaHyponatremia has resolvedStill having some gas and abdominal pain but eating better nowStarted amlodipine in addition to her other BP meds LYNN SHELTON MD [address] [place] [address], [phone], [facility] 05/17/2024 12:39:47 4 text/html Patient has agreed to allow the participation of a professional student in today? s visit. This consent allows for a professional student to: gather medical history, review present medications, review past medical history and complaints, perform non-sensitive parts of physical exam without supervising practitioner present, and participate in discussion with patient and practitioner of diagnosis and treatment plans. Student name: Melba Type: {{ROBLES CHAPMAN WET SANDER PA* MARY ROBLEDO}} hasn't seen gastro in 3 years --[facility] trouble on and off since has always had gut issues has appt in july with cardiology didn't repeat labs yet terrible veins didn't take amlodipine --not using dailydrops too low when takingin hospital bp was very high 05/17/24Minimal PO intake while not feeling wellWent to ED for ? diverticulitis, found to be hyponatremicAdmitted, had elevated BP, reports some episodes of intermittent tachycardiaHyponatremia has resolvedStill having some gas and abdominal pain but eating better nowStarted amlodipine in addition to her other BP meds JAYDE Matos [address] [place], [phone], [facility] 05/24/2024 14:12:51 4 text/html 09/12/24- TCMS, presents with daughter for [facility] 08/08/2024 D/C on 08/12/2024. Dx- Fall/fx tibia/fx fibula.08/09/2024- ORIF, Tibia and Fibula, Dr. Newman, [place] [facility] [facility] from 08/12/2024- D/C 09/11/2024. D/C w/ [facility] PT[facility]. had ortho f/u this month, will also see 10/12/2024. Not taking Tramadol/miralax/ Primadophilus or colace.Pt reports, Uses Wheelchair and walker, doing good, slept better last night , was able to get comfortable finally, has daughter to help at home . was carrying large box upstairs, bottom of the box hit top of stair and knocked her backwardsnon weighting bearing in soft cast to RLE x8 weeksdoing well in PT/OT, had VNA intake yesterdaysleep - did fine last night, hoping this continues, was rx'd trazodone while in rehab which helpedno SOB, using breo as maintenance inhaler, has not required albuterolno dizzinessfeeling well BUCKY BERRIOS PA-C [address] [place], [phone], [facility] 09/12/2024 14:02:07 OBGyn Episode No OBEpisode recorded.
--- OUTSIDE RECORDS SUMMARY | 2024-11-21 13:50 | XMS_ITS | Encounter Summary ---
Author Organization [facility] Address [address] [place] [address] Care Team Providers Care Ripsaw Matcher Name Role Phone Romero Cedeño MD Primary Care Provi [facility] Encounter Details Date Type Department Care Team (Late st Contact Info) Description 08/20/2024 Lab Requisition [facility] - Main Lab [address] [facility] [place] [phone] Jun Robert MD [address] [place] [address] Unspecified asthma, uncomplicated; Essential (primary) [...] Procedure Name Priority Date/Time Associated Diagnosis Comments TRAVEL PHLEBOTOMY FEE Routine 08/21/2024 5:38 AM EST Unspecified asthma, uncomplicated Essential (primary) hypertension COMPLETE BLOOD COUNT Routine 08/21/2024 5:38 AM EST Unspecified asthma, uncomplicated Essential (primary) hypertension COMPREHENSIVE METABOLIC PANEL Routine 08/21/2024 5:38 AM EST Unspecified asthma, uncomplicated Essential (primary) hypertension documented in this encounter Results * Travel phlebotomy fee (08/21/2024 5:38 AM EST) [facility] HOME TRAVEL PHLEBOTOMY FEE Completed 08/21/2024 11:02 AM EST [facility] Blood Venous blood specimen / Unknown Venipuncture / Unknown 08/21/2024 5:38 AM EST 08/21/2024 10:53 AM EST Jun Robert MD LAB BLOOD ORDERABLES [facility] [address] [place] [address], * (ABNORMAL) Comprehensive metabolic panel (08/21/2024 5:38 AM EST) [facility] Sodium 129(L) 133 - 145 mmol/L LAB CHEMISTRY METHOD 08/21/2024 12:18 PM [facility] Potassium 4.1 3.5 - 5.5 mmol/L LAB CHEMISTRY METHOD 08/21/2024 12:18 PM [facility] Chloride 95(L) 96 - 110 mmol/L LAB CHEMISTRY METHOD 08/21/2024 12:18 PM [facility] CO2 23 21 - 32 mmol/L LAB CHEMISTRY METHOD 08/21/2024 12:18 PM [facility] Anion Gap 11 3 - 11 LAB CHEMISTRY METHOD 08/21/2024 12:18 PM [facility] Glucose 72 70 - 100 mg/dL LAB CHEMISTRY METHOD 08/21/2024 12:18 PM [facility] BUN 10 5 - 25 mg/dL LAB CHEMISTRY METHOD 08/21/2024 12:18 PM [facility] Creatinine 0.55 0.50 - 1.10 mg/dL LAB CHEMISTRY METHOD 08/21/2024 12:18 PM [facility] eGFR 97 >=60 mL/min/1. 73m2 LAB CHEMISTRY METHOD 08/21/2024 12:18 PM [facility] Comment:Calculation based on the??Chronic Kidney Disease Epidemiology Collaboration (CKD-EPI) equation refit??without adjustment for race. BUN/Creatinine Ratio 18.2 LAB CHEMISTRY METHOD 08/21/2024 12:18 PM [facility] Calcium 9.1 8.5 - 10.5 mg/dL LAB CHEMISTRY METHOD 08/21/2024 12:18 PM [facility] AST (SGOT) 29 10 - 42 unit/L LAB CHEMISTRY METHOD 08/21/2024 12:18 PM [facility] ALT (SGPT) 36 10 - 60 unit/L LAB CHEMISTRY METHOD 08/21/2024 12:18 PM [facility] Alkaline Phosphatase 79 42 - 121 unit/L LAB CHEMISTRY METHOD 08/21/2024 12:18 PM [facility] Total Protein 6.7 6.0 - 8.0 g/dL LAB CHEMISTRY METHOD 08/21/2024 12:18 PM [facility] Albumin 3.1(L) 3.2 - 5.0 g/dL LAB CHEMISTRY METHOD 08/21/2024 12:18 PM [facility] Total Bilirubin 0.5 0.0 - 1.4 mg/dL LAB CHEMISTRY METHOD 08/21/2024 12:18 PM [facility] Blood Venous blood specimen / Unknown Venipuncture / Unknown 08/21/2024 5:38 AM EST 08/21/2024 10:53 AM EST Jun Robert MD LAB BLOOD ORDERABLES [facility] [address] [place] [address], * (ABNORMAL) Complete blood count (08/21/2024 5:38 AM EST) [facility] WBC 8.9 4.8 - 10.8 K/mcL LAB HEMETOLOGY METHOD 08/21/2024 12:07 PM [facility] RBC 3.60(L) 3.80 - 4.80 M/mcL LAB HEMETOLOGY METHOD 08/21/2024 12:07 PM [facility] Hemoglobin 11.4(L) 11.5 - 16.0 g/dL LAB HEMETOLOGY METHOD 08/21/2024 12:07 PM [facility] Hematocrit 34.1(L) 35.0 - 47.0 % LAB HEMETOLOGY METHOD 08/21/2024 12:07 PM [facility] MCV 95.0 79.0 - 98.0 FL LAB HEMETOLOGY METHOD 08/21/2024 12:07 PM [facility] MCH 31.8 27.0 - 32.0 pcg LAB HEMETOLOGY METHOD 08/21/2024 12:07 PM [facility] MCHC 33.4 32.0 - 37.0 g/dL LAB HEMETOLOGY METHOD 08/21/2024 12:07 PM [facility] RDW 14.3 11.0 - 15.0 % LAB HEMETOLOGY METHOD 08/21/2024 12:07 PM [facility] Platelets 430(H) 130 - 400 K/mcL LAB HEMETOLOGY METHOD 08/21/2024 12:07 PM [facility] MPV 9.0 7.0 - 11.0 FL LAB HEMETOLOGY METHOD 08/21/2024 12:07 PM [facility] NRBC 0.0 <1.0 % LAB HEMETOLOGY METHOD 08/21/2024 12:07 PM [facility] NRBC Absolute 0.00 <0.10 K/mcL LAB HEMETOLOGY METHOD 08/21/2024 12:07 PM [facility] Blood Venous blood specimen / Unknown Venipuncture / Unknown 08/21/2024 5:38 AM EST 08/21/2024 10:53 AM EST Jun Robert MD LAB BLOOD ORDERABLES [facility] [address] [place], [place] [address] [phone] documented in this encounter Visit Diagnoses Diagnosis Unspecified asthma, uncomplicated Essential (primary) hypertension Unspecified essential hypertension documented in this encounter Care Teams Ripsaw Matcher Relationship Specialty Start Date End Date Romero Cedeño MD [address] [place] [address] PCP - General Internal Medicine 07/15/21 documented as of this encounter
--- OUTSIDE RECORDS SUMMARY | 2024-11-21 13:50 | XMS_ITS | Encounter Summary ---
Author Organization [facility] Address [address] [place] [address] Care Team Providers Care Arch Pad Cementer Name Role Phone Romero Cedeño MD Primary Care Provi [facility] Encounter Details Date Type Department Care Team (Late st Contact Info) Description 09/06/2024 Lab Requisition [facility] - Main Lab [address] [facility] [place] [phone] Jun Robert MD [address] [place] [address] Unspecified asthma, uncomplicated; Essential (primary) [...] Associated Diagnosis Comments COMPLETE BLOOD COUNT Routine 09/07/2024 5:51 AM EST Unspecified asthma, uncomplicated Essential (primary) hypertension BASIC METABOLIC PANEL Routine 09/07/2024 5:51 AM EST Unspecified asthma, uncomplicated Essential (primary) hypertension documented in this encounter Results * (ABNORMAL) Basic metabolic panel (09/07/2024 5:51 AM EST) Sodium 135 133 - 145 mmol/L LAB CHEMISTRY METHOD 09/07/2024 11:37 AM [facility] Potassium 3.9 3.5 - 5.5 mmol/L LAB CHEMISTRY METHOD 09/07/2024 11:37 AM [facility] Chloride 101 96 - 110 mmol/L LAB CHEMISTRY METHOD 09/07/2024 11:37 AM [facility] CO2 24 21 - 32 mmol/L LAB CHEMISTRY METHOD 09/07/2024 11:37 AM [facility] Anion Gap 10 3 - 11 LAB CHEMISTRY METHOD 09/07/2024 11:37 AM [facility] Glucose 82 70 - 100 mg/dL LAB CHEMISTRY METHOD 09/07/2024 11:37 AM [facility] BUN 7 5 - 25 mg/dL LAB CHEMISTRY METHOD 09/07/2024 11:37 AM [facility] Creatinine 0.41(L) 0.50 - 1.10 mg/dL LAB CHEMISTRY METHOD 09/07/2024 11:37 AM [facility] eGFR 104 >=60 mL/min/1. 73m2 LAB CHEMISTRY METHOD 09/07/2024 11:37 AM [facility] Comment:Calculation based on the??Chronic Kidney Disease Epidemiology Collaboration (CKD-EPI) equation refit??without adjustment for race. BUN/Creatinine Ratio 17.1 LAB CHEMISTRY METHOD 09/07/2024 11:37 AM [facility] Calcium 9.0 8.5 - 10.5 mg/dL LAB CHEMISTRY METHOD 09/07/2024 11:37 AM [facility] Blood Venous blood specimen / Unknown Venipuncture / Unknown 09/07/2024 5:51 AM EST 09/07/2024 11:03 AM EST Jun Robert MD LAB BLOOD ORDERABLES [facility] [address] [place] [address], * (ABNORMAL) Complete blood count (09/07/2024 5:51 AM EST) [facility] Signature WBC 6.3 4.8 - 10.8 K/mcL LAB HEMETOLOGY METHOD 09/07/2024 11:14 AM EST [facility] RBC 3.60(L) 3.80 - 4.80 M/mcL LAB HEMETOLOGY METHOD 09/07/2024 11:14 AM EST [facility] Hemoglobin 11.5 11.5 - 16.0 g/dL LAB HEMETOLOGY METHOD 09/07/2024 11:14 AM EST [facility] Hematocrit 35.4 35.0 - 47.0 % LAB HEMETOLOGY METHOD 09/07/2024 11:14 AM EST [facility] MCV 97.3 79.0 - 98.0 FL LAB HEMETOLOGY METHOD 09/07/2024 11:14 AM EST [facility] MCH 31.6 27.0 - 32.0 pcg LAB HEMETOLOGY METHOD 09/07/2024 11:14 AM EST [facility] MCHC 32.5 32.0 - 37.0 g/dL LAB HEMETOLOGY METHOD 09/07/2024 11:14 AM EST [facility] RDW 14.6 11.0 - 15.0 % LAB HEMETOLOGY METHOD 09/07/2024 11:14 AM EST [facility] Platelets 302 130 - 400 K/mcL LAB HEMETOLOGY METHOD 09/07/2024 11:14 AM EST [facility] MPV 9.2 7.0 - 11.0 FL LAB HEMETOLOGY METHOD 09/07/2024 11:14 AM EST [facility] NRBC 0.0 <1.0 % LAB HEMETOLOGY METHOD 09/07/2024 11:14 AM EST [facility] NRBC Absolute 0.00 <0.10 K/mcL LAB HEMETOLOGY METHOD 09/07/2024 11:14 AM EST [facility] Blood Venous blood specimen / Unknown Venipuncture / Unknown 09/07/2024 5:51 AM EST 09/07/2024 11:03 AM EST Jun Robert MD LAB BLOOD ORDERABLES [facility] [address] [place] [address], documented in this encounter Visit Diagnoses Diagnosis Unspecified asthma, uncomplicated Essential (primary) hypertension Unspecified essential hypertension documented in this encounter Care Teams Arch Pad Cementer Relationship Specialty Start Date End Date Romero Cedeño MD [address] [place] [address] PCP - General Internal Medicine 07/15/21 documented as of this encounter
--- OUTSIDE RECORDS SUMMARY | 2024-11-21 13:50 | XMS_ITS | Encounter Summary ---
Author Organization [facility] Address [address] [place] [address] Care Team Providers Care Head Packager Name Role Phone Romero Cedeño MD Primary Care Provi [facility] Encounter Details Date Type Department Care Team (Late st Contact Info) Description 09/08/2024 Lab Requisition [facility] - Main Lab [address] [facility] [place] [phone] Jun Robert MD [address] [place] [phone] Unspecified asthma, uncomplicated; Essential (primary) hypertension Social [...] hypertension documented in this encounter Care Teams Head Packager Relationship Specialty Start Date End Date Romero Cedeño MD [address] [place], [place] PCP - General Internal Medicine 07/15/21 documented as of this encounter
--- OUTSIDE RECORDS SUMMARY | 2024-11-21 13:50 | XMS_ITS | Clinical Summary ---
Author Organization 299 [facility] Address [address] [place] [address] Phone Care Team Providers Care Elevator Dispatcher Name Role Phone Romero Rees MD Primary Care Provi jessie Encounters Date Type Department Care Team Description 09/08/2024 Lab Requisition [facility] Lab [address] [place] [phone] Jun Robert MD Unspecified asthma, uncomplicated; Essential (primary) hypertension 09/06/2024 Lab Requisition [facility] Lab [address] [place] [phone] Jun Robert MD Unspecified asthma, uncomplicated; Essential (primary) hypertension 09/02/2024 Lab Requisition [facility] Lab [address] [place] [phone] Jun Robert MD Essential (primary) hypertension 08/30/2024 Lab Requisition [facility] Lab [address] [place] [phone] Jun Robert MD Unspecified asthma, uncomplicated; Essential (primary) hypertension 08/25/2024 Lab Requisition [facility] Lab [address] [place] [phone] Jun Robert MD Unspecified asthma, uncomplicated; Essential (primary) hypertension 08/22/2024 Lab Requisition [facility] Lab [address] [place] [phone] Jun Robert MD Unspecified asthma, uncomplicated; Essential (primary) hypertension 08/20/2024 Lab Requisition [facility] Lab [address] [place] [phone] Jun Robert MD Unspecified asthma, uncomplicated; Essential (primary) hypertension 08/19/2024 Lab Requisition [facility] Lab [address] [place] [phone] Jun Robert MD Essential (primary) hypertension from Last 3 Months Surgical History Surgery Date Site/Laterality Comments OTHER SURGICAL HISTORY PROCEDURE: HISTORICAL UNSPECIFIED SURGERY; COMMENT: sinus surgeries TONSILLECTOMY PROCEDURE: HISTORICAL TONSILLECTOMY ROTATOR CUFF REPAIR Left PROCEDURE: HISTORICAL ROTATOR CUFF REPAIR; COMMENT: Dr. Billings HYSTERECTOMY PROCEDURE: HISTORICAL VAGINAL HYSTERECTOMY W/O BSO; COMMENT: Ovaries and tubes remain in-situ TOTAL KNEE ARTHROPLASTY 07/2019 Left PROCEDURE: UT ARTHRP KNE CONDYLE&PLATU MEDIAL&LAT COMPARTMENTS OTHER SURGICAL HISTORY 05/21/2021 PROCEDURE: UT MASTECTOMY PARTIAL; COMMENT: Left breast magnetic seed localized partial mastectomy OTHER SURGICAL HISTORY 06/11/2021 PROCEDURE: UT MASTECTOMY PARTIAL; COMMENT: Left breast re-excision lumpectomy Medical History Medical History Date Comments Hypothyroidism 08/16/2014 DX:Hypothyroidis m; COMMENT: Sees Dr. 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 Heath -in [place] Cholelithiasis 07/26/2018 DX:Cholelithiasi s; COMMENT: July 2018: abdominal CT scan, [facility] Diverticulitis of colon 08/16/2014 DX:Diver ticulitis of colon IBS (irritable bowel syndrome) 08/16/2014 D X:IBS (irritable bowel syndrome); COMMENT: Sees dr. Miller Isaacs gets [place] Urinary incontinence 08/16/2014 DX:Urinary incontinence Migraine headache 08/16/2014 DX:Migraine he adache Hep C w/o coma, chronic ([facility]) 08/16/2014 DX:Hep C w/o coma, chronic ([facility]) ADD (attention deficit disorder) 08/16/2014 DX:ADD (attention deficit disorder); COMMENT: Dr. Jackeline Casey Depression 08/16/2014 DX:Depression Arthritis 08/16/2014 DX:Arthritis Fibromyalgia 12/19/2014 DX:Fibromyalgia Allergic rhinitis 08/16/2014 DX:Allergic rh initis; COMMENT: Severe sinus problems, gets injections with Dr. Cohen COPD (chronic obstructive pu lmonary disease) ([facility]) 05/06/2021 DX:COPD (chronic obstructive pulmonary disease) ([facility]) Social History Tobacco Use Types Packs/Day Years Used Date Smoking Tobacco: Never Smokeless Tobacco: Never Alcohol Use Standard Drinks/Week Comments No 0 (1 standard drink = 0.6 oz pur e alcohol) Sex and Gender Information Value Date Recorded Sex Assigned at Not on file Gender Identity Not on file Sexual Orientation Not on file Obstetrics History Last Filed Vital Signs Vital Sign Reading Time Taken Comments Blood Pressure 159/80 09/17/2022 1:04 PM EST Pulse 68 09/17/2022 1:04 PM EST Temperature - - Respiratory Rate - - Oxygen Saturation - - Inhaled Oxygen Concentration - - Weight 55.3 kg (122 lb) 07/05/2024 1:43 PM EDT Height 157.5 cm (5' 2 ) 07/05/2024 1:43 PM EDT Body Mass Index 22.31 07/05/2024 1:43 PM EDT Plan of Treatment Health Maintenance Due Date Last Done Comments COVID-19 Vaccine (#1) 1955 DTaP,Tdap,and Td Vaccines (1 - Tdap) 1969 Hepatitis A Vaccines (1 of 2 - Risk 2-dose series) 1969 Zoster Vaccines (1 of 2) 1969 Hepatitis B Vaccines (1 of 3 - Risk 3-dose series) 2010 RSV Immunization Patients 60+ Years Old (1 - Risk 60-74 years 1-dose series) 2010 Cholesterol Screening (Lipid Panel) 09/25/2022 Colorectal Cancer Screening: Colonoscopy 09/25/2022 Depression Screening 09/25/2022 Falls Risk Assessment 09/25/2022 Hepatitis C Screening 09/25/2022 Social Influencers of Health Screening 09/25/2022 Medicare Annual Wellness Visit 08/11/2023 08/11/2022 Influenza Vaccine (#1) 2024 , 08/07/2022, 08/08/2021, Additional history exists Breast Cancer Screening 08/11/2025 08/11/2023, 12/19 Hypertension/CHF/CAD Annual BMP Blood Test 09/07/2025 09/07/2024, 09/04/2024, 08/31/2024, Additional history exists Osteoporosis Screening (Bone Density Screening) 06/18/2032 06/18/2022, 12/19/2018 Pneumococcal Vaccine: 65+ Years Completed 08/10/2019, 02/18/2017 HIB Vaccines Aged Out No longer eligi ble based on patient's age to complete this topic HPV Vaccines Aged Out No longer eligi ble based on patient's age to complete this topic IPV Vaccines Aged Out No longer eligi ble based on patient's age to complete this topic MMR Vaccines Aged Out No longer eligi ble based on patient's age to complete this topic Meningococcal ACWY Vaccine Aged Out N o longer eligible based on patient's age to complete this topic RSV Immunization Patients Under 20 months Aged Out No longer eligible based on patient's age to complete this topic Varicella Vaccines Aged Out No longer eligible based on patient's age to complete this topic Procedures Procedure Name Priority Date/Time Associated Diagnosis Comments BASIC METABOLIC PANEL Routine 09/07/2024 5:51 AM EST Unspecified asthma, uncomplicated Essential (primary) hypertension COMPLETE BLOOD COUNT Routine 09/07/2024 5:51 AM EST Unspecified asthma, uncomplicated Essential (primary) hypertension COMPLETE BLOOD COUNT Routine 09/04/2024 5:12 AM EST Essential (primary) hypertension COMPREHENSIVE METABOLIC PANEL Routine 09/04/2024 5:12 AM EST Essential (primary) hypertension BASIC METABOLIC PANEL Routine 08/31/2024 5:16 AM EST Unspecified asthma, uncomplicated Essential (primary) hypertension COMPLETE BLOOD COUNT Routine 08/31/2024 5:16 AM EST Unspecified asthma, uncomplicated Essential (primary) hypertension COMPREHENSIVE METABOLIC PANEL Routine 08/28/2024 5:19 AM EST Unspecified asthma, uncomplicated Essential (primary) hypertension COMPLETE BLOOD COUNT Routine 08/28/2024 5:19 AM EST Unspecified asthma, uncomplicated Essential (primary) hypertension BASIC METABOLIC PANEL Routine 08/24/2024 4:47 AM EST Unspecified asthma, uncomplicated Essential (primary) hypertension COMPLETE BLOOD COUNT Routine 08/24/2024 4:47 AM EST Unspecified asthma, uncomplicated Essential (primary) hypertension TRAVEL PHLEBOTOMY FEE Routine 08/21/2024 5:38 AM EST Unspecified asthma, uncomplicated Essential (primary) hypertension COMPREHENSIVE METABOLIC PANEL Routine 08/21/2024 5:38 AM EST Unspecified asthma, uncomplicated Essential (primary) hypertension COMPLETE BLOOD COUNT Routine 08/21/2024 5:38 AM EST Unspecified asthma, uncomplicated Essential (primary) hypertension [facility] DEXA AXIAL SKELETON Routine 06/18/2022 5:55 PM EDT Encounter for screening for osteoporosis [facility] SCREENING DIGITAL Routine 12/19/2018 3:27 PM EST Encounter for screening mammogram for malignant neoplasm of breast from Last 3 Months or Most Recently Relevant to Health Maintenance Results * (ABNORMAL) Complete blood count (09/07/2024 5:51 AM EST) Only the most recent of6 resultswithin the time period is included. WBC 6.3 4.8 - 10.8 K/mcL LAB HEMETOLOGY METHOD 09/07/2024 11:14 AM EST [facility] RBC 3.60(L) 3.80 - 4.80 M/mcL LAB HEMETOLOGY METHOD 09/07/2024 11:14 AM EST [facility] Hemoglobin 11.5 11.5 - 16.0 g/dL LAB HEMETOLOGY METHOD 09/07/2024 11:14 AM [facility] Hematocrit 35.4 35.0 - 47.0 % LAB HEMETOLOGY METHOD 09/07/2024 11:14 AM [facility] MCV 97.3 79.0 - 98.0 FL LAB HEMETOLOGY METHOD 09/07/2024 11:14 AM [facility] MCH 31.6 27.0 - 32.0 pcg LAB HEMETOLOGY METHOD 09/07/2024 11:14 AM [facility] MCHC 32.5 32.0 - 37.0 g/dL LAB HEMETOLOGY METHOD 09/07/2024 11:14 AM [facility] RDW 14.6 11.0 - 15.0 % LAB HEMETOLOGY METHOD 09/07/2024 11:14 AM [facility] Platelets 302 130 - 400 K/mcL LAB HEMETOLOGY METHOD 09/07/2024 11:14 AM [facility] MPV 9.2 7.0 - 11.0 FL LAB HEMETOLOGY METHOD 09/07/2024 11:14 AM [facility] NRBC 0.0 <1.0 % LAB HEMETOLOGY METHOD 09/07/2024 11:14 AM [facility] NRBC Absolute 0.00 <0.10 K/mcL LAB HEMETOLOGY METHOD 09/07/2024 11:14 AM [facility] Blood Venous blood specimen / Unknown Venipuncture / Unknown 09/07/2024 5:51 AM EST 09/07/2024 11:03 AM EST Jun Robert MD LAB BLOOD ORDERABLES [facility] LAB [address] [place] [address], * (ABNORMAL) Basic metabolic panel (09/07/2024 5:51 AM EST) Only the most recent of3 resultswithin the time period is included. Sodium 135 133 - 145 mmol/L LAB CHEMISTRY METHOD 09/07/2024 11:37 AM [facility] Potassium 3.9 3.5 - 5.5 mmol/L LAB CHEMISTRY METHOD 09/07/2024 11:37 AM [facility] Chloride 101 96 - 110 mmol/L LAB CHEMISTRY METHOD 09/07/2024 11:37 AM [facility] CO2 24 21 - 32 mmol/L LAB CHEMISTRY METHOD 09/07/2024 11:37 AM [facility] Anion Gap 10 3 - 11 LAB CHEMISTRY METHOD 09/07/2024 11:37 AM [facility] Glucose 82 70 - 100 mg/dL LAB CHEMISTRY METHOD 09/07/2024 11:37 AM [facility] BUN 7 5 - 25 mg/dL LAB CHEMISTRY METHOD 09/07/2024 11:37 AM [facility] Creatinine 0.41(L) 0.50 - 1.10 mg/dL LAB CHEMISTRY METHOD 09/07/2024 11:37 AM [facility] eGFR 104 >=60 mL/min/1. 73m2 LAB CHEMISTRY METHOD 09/07/2024 11:37 AM [facility] Comment:Calculation based on the??Chronic Kidney Disease Epidemiology Collaboration (CKD-EPI) equation refit??without adjustment for race. BUN/Creatinine Ratio 17.1 LAB CHEMISTRY METHOD 09/07/2024 11:37 AM [facility] Calcium 9.0 8.5 - 10.5 mg/dL LAB CHEMISTRY METHOD 09/07/2024 11:37 AM [facility] Blood Venous blood specimen / Unknown Venipuncture / Unknown 09/07/2024 5:51 AM EST 09/07/2024 11:03 AM EST Jun Robert MD LAB BLOOD ORDERABLES [facility] [address] [place] [address], [place] [phone] * (ABNORMAL) Comprehensive metabolic panel (09/04/2024 5:12 AM EST) Only the most recent of3 resultswithin the time period is included. Sodium 131(L) 133 - 145 mmol/L LAB CHEMISTRY METHOD 09/04/2024 10:06 AM [facility] Potassium 4.0 3.5 - 5.5 mmol/L LAB CHEMISTRY METHOD 09/04/2024 10:06 AM [facility] Chloride 97 96 - 110 mmol/L LAB CHEMISTRY METHOD 09/04/2024 10:06 AM [facility] CO2 22 21 - 32 mmol/L LAB CHEMISTRY METHOD 09/04/2024 10:06 AM [facility] Anion Gap 12(H) 3 - 11 LAB CHEMISTRY METHOD 09/04/2024 10:06 AM [facility] Glucose 79 70 - 100 mg/dL LAB CHEMISTRY METHOD 09/04/2024 10:06 AM [facility] BUN 10 5 - 25 mg/dL LAB CHEMISTRY METHOD 09/04/2024 10:06 AM [facility] Creatinine 0.45(L) 0.50 - 1.10 mg/dL LAB CHEMISTRY METHOD 09/04/2024 10:06 AM [facility] eGFR 102 >=60 mL/min/1. 73m2 LAB CHEMISTRY METHOD 09/04/2024 10:06 AM [facility] Comment:Calculation based on the??Chronic Kidney Disease Epidemiology Collaboration (CKD-EPI) equation refit??without adjustment for race. BUN/Creatinine Ratio 22.2 LAB CHEMISTRY METHOD 09/04/2024 10:06 AM [facility] Calcium 9.2 8.5 - 10.5 mg/dL LAB CHEMISTRY METHOD 09/04/2024 10:06 AM [facility] AST (SGOT) 22 10 - 42 unit/L LAB CHEMISTRY METHOD 09/04/2024 10:06 AM [facility] ALT (SGPT) 23 10 - 60 unit/L LAB CHEMISTRY METHOD 09/04/2024 10:06 AM [facility] Alkaline Phosphatase 79 42 - 121 unit/L LAB CHEMISTRY METHOD 09/04/2024 10:06 AM [facility] Total Protein 6.7 6.0 - 8.0 g/dL LAB CHEMISTRY METHOD 09/04/2024 10:06 AM [facility] Albumin 3.2 3.2 - 5.0 g/dL LAB CHEMISTRY METHOD 09/04/2024 10:06 AM [facility] Total Bilirubin 0.3 0.0 - 1.4 mg/dL LAB CHEMISTRY METHOD 09/04/2024 10:06 AM [facility] Blood Venous blood specimen / Unknown Venipuncture / Unknown 09/04/2024 5:12 AM EST 09/04/2024 9:16 AM EST Jun Robert MD LAB BLOOD ORDERABLES Performing Organization Address City/State/[facility] Co de Phone Number [facility] [address] [place] [address], * Travel phlebotomy fee (08/21/2024 5:38 AM EST) [facility] TRAVEL PHLEBOTOMY FEE Completed 08/21/2024 11:02 AM [facility] Blood Venous blood specimen / Unknown Venipuncture / Unknown 08/21/2024 5:38 AM EST 08/21/2024 10:53 AM EST Jun Robert MD LAB BLOOD ORDERABLES [facility] LAB [address] [place] [address], * ZAY DEXA AXIAL SKELETON (06/18/2022 5:55 PM EDT) Anatomical Region Laterality Modality Mammography 06/18/2022 1:15 PM EDT Narrative 06/18/2022 5:55 PM EDT [facility] Diagnostic Imaging Department [address] [place] [address] Patient: ??MARILYN ALAN ?/Age/Sex: 1950 - 71 - F Unit#: ??[id number] ? Location/Status: ??SPDIMAM/REG CLI ? Mnemonic/Ordering Site: ??MAMDEXAAX/SPMAM Ordering Physician: ??YUSUF REES MD Zay Dexa Axial Skeleton - 06/18/22 - History: Low estrogen state due to menopause. History of breast carcinoma. Adult fracture (knee). Chronic glucocorticoid use. Comparison: 12/19/18 Findings: Bone densitometry is performed utilizing dual energy x-ray absorptiometry (DXA) in the Bizible unit. The lumbar spine and proximal femora are evaluated in the AP projection. The FRAX questionaire was completed. The results indicate low bone mass (osteopenia), with a left femoral neck T- score of -2.4. There has been no statistically significant change. ??The detailed DEXA report will be mailed to the referring physician's office. DualFemur FRAX: 10-year Probability of Fracture: Major Osteoporotic 29.4 percent ??Hip 7.8 percent. IMPRESSION: Osteopenia. [id number] Dictating Physician: ??DEYANIRA OKEEFE MD Electronically Signed by: ??DEYANIRA OKEEFE MD Dic Date/Time: ??06/18/221753 Sign date/Time: ??06/18/221754 Procedure Note Deyanira Okeefe MD - 10/07/2022 [facility] Diagnostic Imaging Department [address] [place] [address] Patient: MARILYN ALAN Rm Ramos/Age/Sex: 1950 - 71 - F Unit#: [id number] [facility]/Ordering Site[facility] Ordering Physician: YUSUF REES MD [facility] Dexa Axial Skeleton - 06/18/22 - History: Low estrogen state due to menopause. History of breast carcinoma.Adult fracture (knee). Chronic glucocorticoid use. Comparison: 12/19/18 Findings: Bone densitometry is performed utilizing dual energy x-ray absorptiometry(DXA) in the Bizible unit. The lumbar spine and proximal femora areevaluated in the AP projection. The FRAX questionaire was completed. The results indicate low bone mass (osteopenia), with a left femoral neckT- score of -2.4. There has been no statistically significant change. Thedetailed DEXA report will be mailed to the referring physician's office. DualFemur FRAX: 10-year Probability of Fracture: Major Osteoporotic 29.4 percent Hip 7.8 percent. IMPRESSION: Osteopenia. [id number] Dictating Physician: DEYANIRA OKEEFE MD Electronically Signed by: DEYANIRA OKEEFE MD Dic Date/Time: 06/18/221753 Sign date/Time: 06/18/221754 Romero Templeton MD IMG BI PROC EDURES * ZAY SCREENING DIGITAL (12/19/2018 3:27 PM EST) Anatomical Region Laterality Modality Mammography 12/19/2018 1:49 PM EST Narrative 12/19/2018 3:27 PM EST [facility] Diagnostic Imaging Department [address] [place] [address] Patient: ??MARILYN ALAN ?/Age/Sex: 1950 - 68 - F Unit#: ??[id number] ? Location/Status: ??SPDIMAM/REG CLI ? Mnemonic/Ordering Site: ??DIGSC/SPMAM Ordering Physician: ??YUSUF REES MD Zay Screening Digital - 12/19/18 - 1460 EXAM: Zay Screening Digital EXAM DATE AND TIME: 12/19/2018 2:35 PM HISTORY: ??Screening. COMPARISON: ??03/17/16 (right) versus, 03/13/16, 05/22/13, 04/23/11 TECHNIQUE: CC and MLO views of both breasts were obtained using full field digital mammography. Bilateral digital breast tomosynthesis was performed in the MLO projection. Computer aided detection with the Huddle.2-H was employed. TISSUE DENSITY: b. There are scattered areas of fibroglandular density. FINDINGS: A new 7 mm circumscribed round mass is present in the 2:00 position of the left breast, approximately 3 cm from the nipple. Targeted ultrasound is recommended for further assessment. No dominant mass or asymmetry is seen in the right breast. Few scattered benign calcifications are again seen bilaterally. There is no architectural distortion. Vascular calcification is present. The skin is unremarkable. IMPRESSION: 1. New left breast nodule, for which ultrasound is recommended. The patient will be called back. 2. Stable mammographic appearance of the right breast. No evidence of malignancy is seen. BI-RADS: ??Category 0: Incomplete - Need Additional Imaging Evaluation RECOMMENDATION(S): 1: Ultrasound follow-up LEFT [id number], [id number], [id number] Dictating Physician: ??DEYANIRA OKEEFE MD Electronically Signed by: ??DEYANIRA OKEEFE MD Dic Date/Time: ??12/19/18 1526 Sign date/Time: ??12/19/18 1527 Procedure Note Deyanira Okeefe MD - 10/07/2022 [facility] Diagnostic Imaging Department [address] [place] [id number] Patient: MARILYN ALAN./Age/Sex: 1950 - 68 - F Unit#: [id number] Location/Status: SPDIMAM/REG CLI [facility]ician: YUSUF REES MD Zay Screening Digital - 12/19/18 - 1434 EXAM: Zay Screening Digital EXAM DATE AND TIME: 12/19/2018 2:35 PM HISTORY: Screening. COMPARISON: 03/17/16 (right) versus, 03/13/16, 05/22/13, 04/23/11 TECHNIQUE: CC and MLO views of both breasts were obtained using fullfield digital mammography. Bilateral digital breast tomosynthesis was performedin the MLO projection. Computer aided detection with the [employer] 7.[employer]-On[employer] Digitalas employed. TISSUE DENSITY: b. There are scattered areas of fibroglandular density. FINDINGS: A new 7 mm circumscribed round mass is present in the 2:00 position of theleft breast, approximately 3 cm from the nipple. Targeted ultrasound isrecommended for further assessment. No dominant mass or asymmetry is seen in the right breast. Few scatteredbenign calcifications are again seen bilaterally. There is no architecturaldistortion. Vascular calcification is present. The skin is unremarkable. IMPRESSION: 1. New left breast nodule, for which ultrasound is recommended. Thepatient will be called back. 2. Stable mammographic appearance of the right breast. No evidence of malignancy is seen. BI-RADS: Category 0: Incomplete - Need Additional Imaging Evaluation RECOMMENDATION(S): 1: Ultrasound follow-up LEFT [id number], [id number], [id number] Dictating Physician: DEYANIRA OKEEFE MD Electronically Signed by: DEYANIRA OKEEFE MD Dic Date/Time: 12/19/18 1526 Sign date/Time: 12/19/18 1527 Romero Templeton MD IMG BI PROC EDURES from Last 3 Months or Most Recently Relevant to Health Maintenance Care Teams Elevator Dispatcher Relationship Specialty Start Date End Date Romero Rees MD [address] [place] [address] PCP - General Internal Medicine 07/15/21
--- OUTSIDE RECORDS SUMMARY | 2024-11-21 13:50 | XMS_ITS | Encounter Summary ---
Author Organization [facility] Address [address] [place] [address] Care Team Providers Care Supply Chain Business Analyst Name Role Phone Romero Cedeño MD Primary Care Provi [facility] Encounter Details Date Type Department Care Team (Late st Contact Info) Description 08/22/2024 Lab Requisition [facility] - Main Lab [address] [facility] [place] [phone] Jun Robert MD [address] [place] [address] Unspecified asthma, uncomplicated; Essential (primary) [...] Associated Diagnosis Comments COMPLETE BLOOD COUNT Routine 08/24/2024 4:47 AM EST Unspecified asthma, uncomplicated Essential (primary) hypertension BASIC METABOLIC PANEL Routine 08/24/2024 4:47 AM EST Unspecified asthma, uncomplicated Essential (primary) hypertension documented in this encounter Results * (ABNORMAL) Basic metabolic panel (08/24/2024 4:47 AM EST) Sodium 131(L) 133 - 145 mmol/L LAB CHEMISTRY METHOD 08/24/2024 9:47 AM [facility] Potassium 3.6 3.5 - 5.5 mmol/L LAB CHEMISTRY METHOD 08/24/2024 9:47 AM [facility] Chloride 96 96 - 110 mmol/L LAB CHEMISTRY METHOD 08/24/2024 9:47 AM [facility] CO2 24 21 - 32 mmol/L LAB CHEMISTRY METHOD 08/24/2024 9:47 AM [facility] Anion Gap 11 3 - 11 LAB CHEMISTRY METHOD 08/24/2024 9:47 AM [facility] Glucose 77 70 - 100 mg/dL LAB CHEMISTRY METHOD 08/24/2024 9:47 AM [facility] BUN 9 5 - 25 mg/dL LAB CHEMISTRY METHOD 08/24/2024 9:47 AM [facility] Creatinine 0.47(L) 0.50 - 1.10 mg/dL LAB CHEMISTRY METHOD 08/24/2024 9:47 AM [facility] eGFR 101 >=60 mL/min/1. 73m2 LAB CHEMISTRY METHOD 08/24/2024 9:47 AM [facility] Comment:Calculation based on the??Chronic Kidney Disease Epidemiology Collaboration (CKD-EPI) equation refit??without adjustment for race. BUN/Creatinine Ratio 19.1 LAB CHEMISTRY METHOD 08/24/2024 9:47 AM [facility] Calcium 9.0 8.5 - 10.5 mg/dL LAB CHEMISTRY METHOD 08/24/2024 9:47 AM [facility] Blood Venous blood specimen / Unknown Venipuncture / Unknown 08/24/2024 4:47 AM EST 08/24/2024 8:19 AM EST Jun Robert MD LAB BLOOD ORDERABLES [facility] [address] [place] [address], * (ABNORMAL) Complete blood count (08/24/2024 4:47 AM EST) WBC 11.3(H) 4.8 - 10.8 K/mcL LAB HEMETOLOGY METHOD 08/24/2024 9:21 AM EST [facility] RBC 3.40(L) 3.80 - 4.80 M/mcL LAB HEMETOLOGY METHOD 08/24/2024 9:21 AM [facility] Hemoglobin 10.5(L) 11.5 - 16.0 g/dL LAB HEMETOLOGY METHOD 08/24/2024 9:21 AM [facility] Hematocrit 31.6(L) 35.0 - 47.0 % LAB HEMETOLOGY METHOD 08/24/2024 9:21 AM [facility] MCV 94.3 79.0 - 98.0 FL LAB HEMETOLOGY METHOD 08/24/2024 9:21 AM [facility] MCH 31.3 27.0 - 32.0 pcg LAB HEMETOLOGY METHOD 08/24/2024 9:21 AM [facility] MCHC 33.2 32.0 - 37.0 g/dL LAB HEMETOLOGY METHOD 08/24/2024 9:21 AM EST [facility] RDW 14.6 11.0 - 15.0 % LAB HEMETOLOGY METHOD 08/24/2024 9:21 AM [facility] Platelets 427(H) 130 - 400 K/mcL LAB HEMETOLOGY METHOD 08/24/2024 9:21 AM [facility] MPV 8.6 7.0 - 11.0 FL LAB HEMETOLOGY METHOD 08/24/2024 9:21 AM [facility] NRBC 0.0 <1.0 % LAB HEMETOLOGY METHOD 08/24/2024 9:21 AM EST [facility] NRBC Absolute 0.00 <0.10 K/mcL LAB HEMETOLOGY METHOD 08/24/2024 9:21 AM EST [facility] Blood Venous blood specimen / Unknown Venipuncture / Unknown 08/24/2024 4:47 AM EST 08/24/2024 8:19 AM EST Jun Robert MD LAB BLOOD ORDERABLES [facility] [address] [place], [place] [address] [phone] documented in this encounter Visit Diagnoses Diagnosis Unspecified asthma, uncomplicated Essential (primary) hypertension Unspecified essential hypertension documented in this encounter Care Teams Supply Chain Business Analyst Relationship Specialty Start Date End Date Romero Cedeño MD [address] [place] [address] PCP - General Internal Medicine 07/15/21 documented as of this encounter
--- OUTSIDE RECORDS SUMMARY | 2024-11-21 13:51 | XMS_ITS | Encounter Summary ---
Author Organization [facility] Address [address] [place] [address] Care Team Providers Care Quality Assurance Manager Name Role Phone Romero Cedeño MD Primary Care Provi [facility] Encounter Details Date Type Department Care Team (Late st Contact Info) Description 08/25/2024 Lab Requisition [facility] - Main Lab [address] [facility] [place] [phone] Jun Robert MD [address] [place] [address] Unspecified asthma, uncomplicated; Essential (primary) [...] Associated Diagnosis Comments COMPLETE BLOOD COUNT Routine 08/28/2024 5:19 AM EST Unspecified asthma, uncomplicated Essential (primary) hypertension COMPREHENSIVE METABOLIC PANEL Routine 08/28/2024 5:19 AM EST Unspecified asthma, uncomplicated Essential (primary) hypertension documented in this encounter Results * (ABNORMAL) Comprehensive metabolic panel (08/28/2024 5:19 AM EST) Sodium 132(L) 133 - 145 mmol/L LAB CHEMISTRY METHOD 08/28/2024 10:52 AM [facility] Potassium 4.1 3.5 - 5.5 mmol/L LAB CHEMISTRY METHOD 08/28/2024 10:52 AM [facility] Chloride 99 96 - 110 mmol/L LAB CHEMISTRY METHOD 08/28/2024 10:52 AM [facility] CO2 23 21 - 32 mmol/L LAB CHEMISTRY METHOD 08/28/2024 10:52 AM [facility] Anion Gap 10 3 - 11 LAB CHEMISTRY METHOD 08/28/2024 10:52 AM [facility] Glucose 73 70 - 100 mg/dL LAB CHEMISTRY METHOD 08/28/2024 10:52 AM [facility] BUN 7 5 - 25 mg/dL LAB CHEMISTRY METHOD 08/28/2024 10:52 AM [facility] Creatinine 0.35(L) 0.50 - 1.10 mg/dL LAB CHEMISTRY METHOD 08/28/2024 10:52 AM [facility] eGFR 108 >=60 mL/min/1. 73m2 LAB CHEMISTRY METHOD 08/28/2024 10:52 AM [facility] Comment:Calculation based on the??Chronic Kidney Disease Epidemiology Collaboration (CKD-EPI) equation refit??without adjustment for race. BUN/Creatinine Ratio 20.0 LAB CHEMISTRY METHOD 08/28/2024 10:52 AM [facility] Calcium 9.0 8.5 - 10.5 mg/dL LAB CHEMISTRY METHOD 08/28/2024 10:52 AM [facility] AST (SGOT) 23 10 - 42 unit/L LAB CHEMISTRY METHOD 08/28/2024 10:52 AM [facility] ALT (SGPT) 21 10 - 60 unit/L LAB CHEMISTRY METHOD 08/28/2024 10:52 AM [facility] Alkaline Phosphatase 93 42 - 121 unit/L LAB CHEMISTRY METHOD 08/28/2024 10:52 AM EST [facility] Total Protein 6.7 6.0 - 8.0 g/dL LAB CHEMISTRY METHOD 08/28/2024 10:52 AM [facility] Albumin 3.1(L) 3.2 - 5.0 g/dL LAB CHEMISTRY METHOD 08/28/2024 10:52 AM [facility] Total Bilirubin 0.3 0.0 - 1.4 mg/dL LAB CHEMISTRY METHOD 08/28/2024 10:52 AM [facility] Blood Venous blood specimen / Unknown Venipuncture / Unknown 08/28/2024 5:19 AM EST 08/28/2024 10:06 AM EST Jun Robert MD LAB BLOOD ORDERABLES [facility] [address] [place] [address], * (ABNORMAL) Complete blood count (08/28/2024 5:19 AM EST) WBC 11.2(H) 4.8 - 10.8 K/mcL LAB HEMETOLOGY METHOD 08/28/2024 11:00 AM [facility] RBC 3.50(L) 3.80 - 4.80 M/[facility] LAB HEMETOLOGY METHOD 08/28/2024 11:00 AM [facility] Hemoglobin 11.1(L) 11.5 - 16.0 g/dL LAB HEMETOLOGY METHOD 08/28/2024 11:00 AM [facility] Hematocrit 33.1(L) 35.0 - 47.0 % LAB HEMETOLOGY METHOD 08/28/2024 11:00 AM [facility] MCV 94.8 79.0 - 98.0 FL LAB HEMETOLOGY METHOD 08/28/2024 11:00 AM EST [facility] MCH 31.8 27.0 - 32.0 pcg LAB HEMETOLOGY METHOD 08/28/2024 11:00 AM [facility] MCHC 33.5 32.0 - 37.0 g/dL LAB HEMETOLOGY METHOD 08/28/2024 11:00 AM [facility] RDW 14.8 11.0 - 15.0 % LAB HEMETOLOGY METHOD 08/28/2024 11:00 AM [facility] Platelets 389 130 - 400 K/mcL LAB HEMETOLOGY METHOD 08/28/2024 11:00 AM [facility] MPV 9.0 7.0 - 11.0 FL LAB HEMETOLOGY METHOD 08/28/2024 11:00 AM [facility] NRBC 0.0 <1.0 % LAB HEMETOLOGY METHOD 08/28/2024 11:00 AM [facility] NRBC Absolute 0.00 <0.10 K/mcL LAB HEMETOLOGY METHOD 08/28/2024 11:00 AM [facility] Blood Venous blood specimen / Unknown Venipuncture / Unknown 08/28/2024 5:19 AM EST 08/28/2024 9:58 AM EST Jun Robert MD LAB BLOOD ORDERABLES [facility] [address] [place] [address], documented in this encounter Visit Diagnoses Diagnosis Unspecified asthma, uncomplicated Essential (primary) hypertension Unspecified essential hypertension documented in this encounter Care Teams Quality Assurance Manager Relationship Specialty Start Date End Date Romero Cedeño MD [address] [place] [address] PCP - General Internal Medicine 07/15/21 documented as of this encounter
--- OUTSIDE RECORDS SUMMARY | 2024-11-21 13:51 | XMS_ITS | Clinical Summary ---
Author Organization [facility] Address [address] [place] [address] Care Team Providers Care Help Desk Representative Name Role Phone Sandeep Cedeño MD Primary Care Prov ider Allergies Active Allergy Reactions Criticality Noted Date Comments Amoxicillin 05/15/2021 Medications Medication Sig Dispensed Refills Start Date End Date Status buPROPion (WELLBUTRIN) 100 MG tablet Take 300 mg by mouth 2 (two) times a day. 0 Active cetirizine (ZyrTEC) 10 MG tablet Take 10 mg by mouth daily. 0 Active loratadine (CLARITIN) 10 MG tablet Take 10 mg by mouth daily. 0 Active albuterol (PROVENTIL) (2.5 MG/3ML) 0.083% nebulizer solution Take 2.5 mg by nebulization every 6 (six) hours as needed for wheezing. 0 Active thyroid (ARMOUR) 90 MG tablet Take 90 mg by mouth daily. 0 Active sertraline (ZOLOFT) 50 MG tablet Take 50 mg by mouth daily. 0 Active oxybutynin (OXYTROL) 3.9 MG/24HR Place 1 patch onto the skin 2 (two) times a week. 0 Active fluticasone (FLONASE) 50 MCG/ACT nasal spray spray/apply 1 spray in each nostril daily. 0 Active ipratropium-albute rol (DUO-NEB) 0.5-2.5 mg/mL nebulizer Inhale 3 mL into the lungs. 0 Active celecoxib (CeleBREX) 200 MG capsule Take 200 mg by mouth daily. 0 Active sucralfate (CARAFATE) 1 g tablet Take 1 g by mouth 4 (four) times a day. 0 Active omeprazole (PriLOSEC) 20 MG capsule Take 20 mg by mouth daily. 0 Active montelukast (SINGULAIR) 10 MG tablet Take 10 mg by mouth every night at bedtime. 0 Active Ascorbic Acid ER 1000 MG TBCR Take 1,000 mg by mouth daily. 0 Active immune globulin, Human, (GAMMAGARD) 10 GM/100ML SOLN infusion Inject into the vein once. 0 Active Budesonide-Formote rol Fumarate (SYMBICORT IN) Inhale into the lungs 2 (two) times a day. 0 Active prochlorperazine (COMPAZINE) 10 MG tablet Take 10 mg by mouth every 6 (six) hours as needed. 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 Social History Tobacco Use Types Packs/Day Years Used Date Smoking Tobacco: Never Assessed Sex and Gender Information Value Date Recorded Sex Assigned at Not on file Gender Identity Not on file Sexual Orientation Not on file Job Start Date Occupation Industry Not on file Not on file Not on file Last Filed Vital Signs Vital Sign Reading Time Taken Comments Blood Pressure 158/64 08/12/2022 11:32 AM EDT Pulse 66 08/12/2022 11:32 AM EDT Temperature 37.2 ??C (99 ??F) 08/12/2022 11:32 AM EDT Respiratory Rate - - Oxygen Saturation 97% 08/12/2022 11:32 AM EDT Inhaled Oxygen Concentration - - Weight 55.3 kg (122 lb) 08/12/2022 11:32 AM EDT Height 156.2 cm (5' 1.5 ) 08/12/2022 11:32 AM ED T Body Mass Index 22.68 08/12/2022 11:32 AM EDT Plan of Treatment Health Maintenance Due Date Last Done Comments Hepatitis C Screening 1950 COVID-19 Vaccine (#1) 1955 Pneumococcal Vaccine (1 of 2 - PCV) 1956 Depression Screening 1962 Preventative Health Evaluation 1968 DTap / Tdap / Td (1 - Tdap) 1969 Shingrix-Zoster Vaccine (1 of 2) 1969 Colon Cancer Screening (Colonoscopy) 1995 Breast Cancer Screening (Mammogram) 2000 Fall Risk Assessment 2015 Osteoporosis Screening (DEXA Scan) 2015 Influenza Vaccine (#1) 2024 RSV Adult > 60+ Yrs or Pregn ant (1 - 1-dose 75+ series) 2025 Hepatitis B Vaccines Aged Out No long er eligible based on patient's age to complete this topic RSV Ped < 20 months Aged Out No longe r eligible based on patient's age to complete this topic Care Teams Help Desk Representative Relationship Specialty Start Date End Date Sandeep Cedeño MD [address] [place] [phone] PCP - General Family Medicine 05/15/21
--- NOTE | 2024-11-21 13:54 | A.OFFVIS_ITS ---
Vital Signs 11/21/24 13:55 Height 5 ft 1.5 in Weight 117 lb 15.157 oz BMI 21.9 BP 130/70 Blood Pressure Location Lt brachial Position Sitting Pulse 71 Pulse Source Pulse Oximeter Pulse Oximetry (%) 96 Oxygen Delivery Method Room Air Intake Visit Reasons: COPD Intake Note: pt is here for follow up and states she is okay, after her inhaler she feels great. Ticket Chopper Assembler Required: No Allergies amoxicillin [AMOXICILLIN] Allergy (Unknown, Verified 11/21/24 14:01) SEVERE DIARRHEA, diarrhea fLAGYL Adverse Reaction (Severe, Uncoded 11/21/24 14:01) Shortness of Breath Medication List - Last Reconciled 11/21/24 by Keagan Blackburn MD amlodipine 2.5 mg PO DAILY Breo Ellipta 200-25 mcg/dose (fluticasone furoate-vilanterol) 1 ea inhalation DAILY NS bupropion HCl XL 300 mg PO DAILY celecoxib 200 mg PO BID dicyclomine 10 mg PO TID 90 days fluticasone propionate 50 mcg/actuation 2 sprays intranasal DAILY immune glob G (IgG)-glycine 15-18 % range 80 mL TUFR letrozole 2.5 mg PO DAILY@1999 montelukast 10 mg PO DAILY@1999 oxybutynin chloride ER 10 mg PO BEDTIME prochlorperazine maleate 10 mg PO DAILY PRN thyroid (pork) ([place] Thyroid) 90 mg PO DAILY Ventolin HFA 90 mcg/actuation (albuterol sulfate) 2 puffs PO Q4-6H PRN NS vibegron (Gemtesa) 75 mg PO DAILY Do you need a note to return to daycare/school/sports/work: No HPI HPI COPD: Details: Marilyn is 74 years old very pleasant female with past history of smoking but quit many years ago. She does have mild to moderate degree of COPD but it remains under good control. She is doing very well with Breo Ellipta once a day and uses albuterol only once or twice a week if needed. Recently she had broken right knee which has been repaired and now she is able to walk around with the help of a cane. She denies any cough or expectoration. Luckily she has had no recent respiratory infection. [facility] Medical History Bronchitis Ductal carcinoma in situ (DCIS) of left breast Abnormality of left breast on screening mammography Hypogammaglobulinemia IBS (irritable bowel syndrome) Asthma Pulmonary nodules/lesions, multiple COPD (chronic obstructive pulmonary disease) Allergic rhinitis Surgical History H/O sinus surgery History of tonsillectomy H/O: hysterectomy H/O tubal ligation History of total left knee replacement Social History Household Members: None Household Members Other:: grandson comes on the weekends Housing: House Do you presently have visiting nurse or other home services: No Alcohol intake: never Patient Tobacco Use Status: Former Tobacco user Tobacco use type: Cigarette Cigarette Packs Per Day: 1 Cigarettes Per Day: 20.0 Years Smoked: 10 Second Hand Smoke Exposure: No Substance Use Type: Marijuana service: No Current occupational status: unemployed Female Reproductive History Menstrual Age of Menarche: 12 Review of Systems Const All systems reviewed & are unremarkable except as noted in HPI and below Denies snoring Eyes Reports no additional complaints ENT Reports nasal congestion (MILD INTERMITTENT BUT ALMOST ON DAILY BASIS) and Reports nasal discharge Card Denies chest pain, Denies irregular heart rhythm, Denies leg edema and Denies dyspnea Resp Reports cough, Denies dyspnea, Denies snoring and Denies wheezing GI Reports GI cramping (MILD INTERMITTENT) and Reports heartburn (CONTROLLED WITH OMEPRAZOLE) Reports no additional complaints Musc Reports no additional complaints Skin/Breast Reports system reviewed and no additional complaints, except as documented Neuro Reports no additional complaints Psych Reports no additional complaints Aller/Immun Denies wheezing Physical Exam Vital Signs: Last Vital Signs Pulse 71 11/21/24 13:55 BP 130/70 11/21/24 13:55 Pulse Ox 96 11/21/24 13:55 Oxygen Delivery Method Room Air 11/21/24 13:55 BMI result Body Mass Index 21.9 Const General: comfortable, no acute distress, alert and awake Orientation/consciousness: patient oriented x3 HEENT Head: Yes normal to inspection General nose exam: No nasal polyps present and No nasal discharge present Face and sinus: Yes sinuses nontender Mouth: oropharynx normal Throat: Yes posterior oropharynx normal Eyes General: appearance normal, both eyes and all related structures Neck Neck: Yes normal visual inspection, Yes no lymphadenopathy, Yes trachea midline and Yes no JVD Thyroid: Thyroid normal Chest Chest palpation & inspection: normal inspection of the chest, normal palpation of entire chest wall and no tenderness Resp Other: PERCUSSION NOTE IS RESONANT, BREATH SOUNDS ARE DISTANT ON BOTH SIDES . NO CREPITATIONS, WHEEZES OR RHONCHI ARE HEARD TODAY. Cardio Palpation: normal PMI Rate: regular rate Rhythm: regular rhythm Heart sounds: no gallops and no murmurs Peripheral pulses: Peripheral pulses 2+ throughout GI Palpation (GI): Soft to palpation, nontender, No hepatosplenomegaly present and no masses Auscultation: normal bowel sounds Back/Spine/Pelvis Thoracic/Lumbar Spine: thoracic and lumbar spine normal to inspection Skin General skin exam: no rashes or lesions noted Neuro General: patient oriented x3 and no focal motor deficits Cranial nerves: Yes CN's II-XII intact bilaterally Extrem General: Yes normal to inspection, Yes no clubbing, cyanosis or edema and Yes no calf tenderness Psych Appearance: grossly normal and well kempt Speech and movement: Normal speech and movement present Affect: Anxious affect present Assessment & Plan Assessment & Plan (1) COPD (chronic obstructive pulmonary disease): Comment: PER PREVIOUS SPIROMETRY SHE HAS NO CHRONIC OBSTRUCTIVE PULMONARY DISORDER. AND MOST LIKELY HER SYMPTOMS ARE JUST DUE TO MILD CHRONIC BRONCHIAL ASTHMA. SHE CONTINUES TO USE BREO ELLIPTA 200-251 INHALATION DAILY AND IS DOING VERY WELL. Code(s): J44.9 - Chronic obstructive pulmonary disease, unspecified Category: Medical Plan: OK TO KEEP ON USING BREO 200-251 INHALATION DAILY. AND ALBUTEROL HFA 2 PUFFS Q 4-6 HOURS ONLY P.R.N.. (2) Allergic rhinitis: Comment: SHE HAS CHRONIC ALLERGIC RHINITIS, WHICH HAS REMAINED WELL CONTROLLED. Code(s): J30.9 - Allergic rhinitis, unspecified Category: Medical Plan: CONTINUE TO USE MONTELUKAST 10 MG DAILY. SHE ALSO CONTINUES TO INJECT HERSELF WITH IMMUNE GLOBULIN ( 1gG ) ONCE A WEEK (3) Pulmonary nodules/lesions, multiple: Comment: Last CT scan of chest in 2019,, showed no change in size of multiple micronodules ,, and considered BENIGN . One new 3 mm. Nodule noted in Rt lung , but as she is non - smoker and low Risk , no need of doing follow up CT scan . Patient Educated , Code(s): R91.8 - Other nonspecific abnormal finding of lung field Category: Medical Plan: NO FURTHER FOLLOW-UP NEEDED Medications: Changed From Breo Ellipta 200-25 mcg/dose (fluticasone furoate-vilanterol) 1 ea inhalation DAILY 60 ea 0RF NS J44.9 - Chronic obstructive pulmonary disease, unspecified, J45.909 - Unspecified asthma, uncomplicated To Breo Ellipta 200-25 mcg/dose (fluticasone furoate-vilanterol) 1 ea inhalation DAILY 60 ea 11RF ASTHMA/COPD 30 days NS J44.9 - Chronic obstructive pulmonary disease, unspecified, J45.909 - Unspecified asthma, uncomplicated From Ventolin HFA 90 mcg/actuation (albuterol sulfate) 2 puffs PO Q4-6H PRN 54 ea 1RF for wheezing NS To Ventolin HFA 90 mcg/actuation (albuterol sulfate) 2 puffs PO Q4-6H PRN 54 ea 3RF for wheezing 60 days NS Coding Level of Care Code Est Pt Level 3 (46704) Diagnoses COPD (chronic obstructive pulmonary disease) J44.9 Allergic rhinitis J30.9 Pulmonary nodules/lesions, multiple R91.8
[2024-11-21 13:55] VITALS: BP 130/70; PULSE 71; O2SAT 96; BMI 21.9
== END 2024-11-21 15:04 | disposition home or self-care (01) ==
PROVIDERS: PCP Family Medicine; Visit Provider Internal Medicine
DX: J44.9 Chronic obstructive pulmonary disease, unspecified (principal); J30.9 Allergic rhinitis, unspecified; R91.8 Other nonspecific abnormal finding of lung field
CPT/HCPCS: 99213

== ENCOUNTER → 2024-11-21 13:39 | Outpatient (BNVA) | payer MEDICARE, SELFPAY | PROVIDERS: PCP Family Medicine; Visit Provider Internal Medicine | DX: J44.9 Chronic obstructive pulmonary disease, unspecified (principal); J30.9 Allergic rhinitis, unspecified; R91.8 Other nonspecific abnormal finding of lung field | CPT/HCPCS: 99212 ==

== ENCOUNTER 2025-04-17 13:12 | Outpatient (REF) | payer MEDICARE, SELFPAY ==
[2025-04-17 13:31] LABS: MANUAL DIFF FLAG NO
[2025-04-17 14:01] LABS: Hematocrit 39.1 % (37.0-47.0); Hemoglobin 13.4 g/dl (12.0-16.0); Imm Gran Abs Auto 0.04 X10*3/uL (0.00-0.03); Imm Gran Pct Auto 0.5 % (0.0-0.4); Lymphocytes Absolute Auto 1.6 X10*3/uL (1.2-4.9); Mean Corpuscular HGB Conc 34.3 g/dl (31.0-35.0); Mean Corpuscular Hemoglobin 32.4 pg (27.0-33.0); Mean Corpuscular Volume 94.4 fL (80.0-98.0); NRBC Abs Auto 0.000 X10*3/uL (0.0-0.012); NRBC Pct Auto 0.0 /100WBC (0.0-0.2); Platelet Count 279 X10*3/uL (160-400); Red Blood Count 4.14 X10*6/uL (4.20-5.50); White Blood Count 8.0 X10*3/uL (4.8-10.8)
--- OUTSIDE RECORDS SUMMARY | 2025-04-17 14:19 | XMS_ITS | Encounter Summary ---
Author Organization [facility] Address [address] [place] [address] Care Team Providers Care Land Survey Technician Name Role Phone Romero Cedeño MD Primary Care [facility] Encounter Details Date Type Department Care Team (Late st Contact Info) Description 08/30/[address] [facility] - [facility] Lab [address] [facility] [place] [phone] Jun Robert MD [address] [place] [phone] Unspecified asthma, uncomplicated; Essential (primary) hypertension Social History Tobacco Use Types Packs/Day Years Used Date Smoking Tobacco: Never Smokeless Tobacco: Never Alcohol Use Standard Drinks/Week Comments No 0 (1 standard drink = 0.6 oz pur e alcohol) Comments Unknown Sex and Gender Information Value Date Recorded Sex Assigned at Female 03/07/2025 10:32 AM EDT Legal Sex Female 1:02 PM EST Gender Identity Female 03/07/2025 10:32 AM EDT Sexual Orientation Straight 04/06/2025 9: 44 AM EDT documented as of this encounter Plan of Treatment Upcoming Encounters Date Type Department Care Team (Late st Contact Info) Description 05/31/2025 1:30 PM EDT Appointment [facility] [address] [place] [phone] 05/31/2025 2:15 PM EDT Appointment [facility] [address] [phone] documented as of this encounter Procedures Procedure [...] mmol/L LAB CHEMISTRY METHOD 08/31/2024 1:18 PM [facility] Potassium 4.5 3.5 - 5.5 mmol/L LAB CHEMISTRY METHOD 08/31/2024 1:18 PM [facility] Chloride 100 96 - 110 mmol/L LAB CHEMISTRY METHOD 08/31/2024 1:18 PM [facility] CO2 22 21 - 32 mmol/L LAB CHEMISTRY METHOD 08/31/2024 1:18 PM [facility] Anion Gap 11 3 - 11 LAB CHEMISTRY METHOD 08/31/2024 1:18 PM [facility] Glucose 74 70 - 100 mg/dL LAB CHEMISTRY METHOD 08/31/2024 1:18 PM [facility] BUN 8 5 - 25 mg/dL LAB CHEMISTRY METHOD 08/31/2024 1:18 PM [facility] Creatinine 0.39(L) 0.50 - 1.10 mg/dL LAB CHEMISTRY METHOD 08/31/2024 1:18 PM [facility] eGFR 105 >=60 mL/min/1. 73m2 LAB CHEMISTRY METHOD 08/31/2024 1:18 PM [facility] Comment:Calculation based on the Chronic Kidney Disease Epidemiology Collaboration (CKD-EPI) equation refit without adjustment for race. BUN/Creatinine Ratio 20.5 LAB CHEMISTRY METHOD 08/31/2024 1:18 PM [facility] Calcium 8.8 8.5 - 10.5 mg/dL LAB CHEMISTRY METHOD 08/31/2024 1:18 PM [facility] Blood Venous blood specimen / Unknown Venipuncture / Unknown 08/31/2024 5:16 AM EST 08/31/2024 9:24 AM EST us Jun Robert MD LAB BLOOD ORDERABLES Final Resu lt [facility] [address] [place] [address], * (ABNORMAL) Complete blood count (08/31/2024 5:16 AM EST) WBC 7.0 4.8 - 10.8 K/mcL LAB HEMETOLOGY METHOD 08/31/2024 10:47 AM [facility] RBC 3.50(L) 3.80 - 4.80 M/mcL LAB HEMETOLOGY METHOD 08/31/2024 10:47 AM [facility] Hemoglobin 10.9(L) 11.5 - 16.0 g/dL LAB HEMETOLOGY METHOD 08/31/2024 10:47 AM [facility] Hematocrit 32.6(L) 35.0 - 47.0 % LAB HEMETOLOGY METHOD 08/31/2024 10:47 AM [facility] MCV 94.5 79.0 - 98.0 FL LAB HEMETOLOGY METHOD 08/31/2024 10:47 AM [facility] MCH 31.6 27.0 - 32.0 pcg LAB HEMETOLOGY METHOD 08/31/2024 10:47 AM [facility] MCHC 33.4 32.0 - 37.0 g/dL LAB HEMETOLOGY METHOD 08/31/2024 10:47 AM EST [facility] RDW 14.6 11.0 - 15.0 % LAB HEMETOLOGY METHOD 08/31/2024 10:47 AM EST [facility] Platelets 343 130 - 400 K/mcL LAB HEMETOLOGY METHOD 08/31/2024 10:47 AM [facility] MPV 8.8 7.0 - 11.0 FL LAB HEMETOLOGY METHOD 08/31/2024 10:47 AM EST [facility] NRBC 0.0 <1.0 % LAB HEMETOLOGY METHOD 08/31/2024 10:47 AM [facility] NRBC Absolute 0.00 <0.10 K/mcL LAB HEMETOLOGY METHOD 08/31/2024 10:47 AM [facility] Blood Venous blood specimen / Unknown Venipuncture / Unknown 08/31/2024 5:16 AM EST 08/31/2024 9:23 AM EST us Jun Robert MD LAB BLOOD ORDERABLES Final Resu lt [facility] [address] [place] [address], documented in this encounter Visit Diagnoses Diagnosis Unspecified asthma, uncomplicated Essential (primary) hypertension Unspecified essential hypertension documented in this encounter Care Teams Land Survey Technician Relationship Specialty Start Date End Date Romero Cedeño MD [address] [place] [address] PCP - General Internal Medicine 07/15/21 documented as of this encounter
--- OUTSIDE RECORDS SUMMARY | 2025-04-17 14:19 | XMS_ITS | Data Portability ---
Author Organization [place] - [facility], [facility] Address [address] [place] [address] Care Team Providers Care Ict Trainer Name Role Phone MICHELLE ADRIANAAVISMARIANNAEVA Primary Care Provide r Assessment Encounter Date [...] Portions of this note were generated by Telepath. Time spent with patient: 23 minutes [email or web address] Not available 10/12/2024 11:50:32 11/23/2024 11/23/2024 Findings and Studies were discussed with the patient and questions answered to their satisfaction PLAN SUMMARY: - Maintain active lifestyle and perform home exercises as instructed by physical therapist - Use cane for stability; discontinue when no longer helpful - Referred to outpatient physical therapy for strengthening, gait training, and balance exercises - Follow up in 8 weeks RIGHT KNEE CONDITION: - Use cane for stability and comfort. - Discontinue cane use when it becomes more of an annoyance than a help. - Perform home exercises as instructed by physical therapist. - Referred to outpatient physical therapy for strengthening, gait training, and balance exercises. OSTEOARTHRITIS: - Maintain an active lifestyle. FOLLOW-UP: - Follow up in 8 weeks. Patient may call or return sooner for any additional questions or changes in condition. Portions of this note were generated by Telepath. Errors of wireless development manager may occur- please feel free to reach out with any corrections or clarifications you may require. Time spent face to face with patient: 14 minutes [email or web address] Not available 11/23/2024 17:20:41 01/18/2025 01/18/2025 Findings and Studies were discussed with the patient and questions answered to their satisfaction Right tibial plateau fracture. Patient states that prior to the injury she was already having some difficulties with knock kneed/valgus alignment of the knee, which improved slightly around the time of surgery, but has worsened since then. I do not see a whole lot of change in position of the bone, and structurally she has more varus and this. Clinically she is at least symmetric with opens to valgus stress. I have discussed with her the possibility of an opening wedge osteotomy to correct her bony alignment, but given the clinical symptoms I be hesitant to recommend this. She has had a total knee replacement left-hand side, and ultimately if she ever goes on to a knee replacement any alignment issues could be addressed at that point, along with ligament balancing. She Is interested in having the hardware removed, we started to do that since she is 6 months plus from the time of surgery. At that time could also assess for any opening under fluoroscopic evaluation to assess the ligamentous structures, and post heart removal is still the option of an MRI to evaluate individual structures. PLAN SUMMARY: - Use hinged knee brace for stability, patient currently has a stabilizing sleeve, which does not have a formal hinge but has flexible bands on either side. Will see which 1 she prefers - Use cane as needed for ambulation - Contact office to schedule hardware removal if decided - Potential hardware removal in about 6 months - 3-week recovery period expected after hardware removal - Follow up in 2-3 months or sooner if needed RIGHT KNEE VALGUS DEFORMITY AND INSTABILITY: - Advised against realigning the knee joint during hardware removal due to patient's knock-knee presentation. - Use hinged knee brace for stability. The patient is ambulatory, but has weakness and/or instability of their extremity which requires stabilization from this semi-rigid/rigid orthosis to improve their function. Verbal and written instructions for their use and application of this item were given. patient was instructed that should the brace result in increased pain, decreased sensation, increased swelling or an overall worsening of their medical condition, to please contact our office immediately. RIGHT TIBIA FRACTURE: - Discussed potential hardware removal in about 6 months, with a 3-week recovery period. - The bone would be weaker initially after removal. - Contact the office if deciding to proceed with hardware removal to begin scheduling process. MUSCLE WEAKNESS AND MOBILITY ISSUES: - Use cane as needed for ambulation. FOLLOW-UP: - Follow up in 2-3 months or sooner if needed. Patient may call or return sooner for any additional questions or changes in condition. Portions of this note were generated by Telepath. Errors of wireless development manager may occur- please feel free to reach out with any corrections or clarifications you may require. Time spent face to face with patient: 23 minutes [email or web address] Not available 01/18/2025 12:48:35 02/26/2025 02/26/2025 Findings and Studies were discussed with the patient and questions answered to their satisfaction PLAN SUMMARY: - Proceed with hardware removal surgery for proximal tibia - Use knee immobilizer and walker after surgery for comfort and mobility - Keep dressing on for 3-4 days post-op - Limit activity for a few weeks post-surgery - Can shower 3-4 days post-op, but avoid submerging surgical site - Follow-up on day of surgery for final questions and side confirmation - Outpatient procedure with 23-hour stay option TIBIA FRACTURE AND HARDWARE REMOVAL: - Ms. Alan understands the risks and benefits and elects to proceed with hardware removal surgery for proximal tibia. - Procedure will take about 1 hour, require anesthesia, and be outpatient with a 23-hour stay option. - Potential risks include 1-2% chance of infection and small risk of refracture. POST-OPERATIVE CARE AND INSTRUCTIONS: - Post-op instructions: Use walker and knee immobilizer brace for comfort, can shower 3-4 days post-op but not immerse surgical site underwater. - Use walker after surgery. - Use knee immobilizer for comfort as needed. - Keep dressing on for 3-4 days after surgery or until follow-up visit. - After dressing removal, can shower but avoid submerging surgical site. - Limit activity for a few weeks after surgery. Patient may bring her own knee immobilizer from home, she has a walker and wheelchair. FOLLOW-UP: - Follow up on day of surgery for final questions and side confirmation. Surgical plan Removal of hardware, Synthes locking plate and screws from right proximal tibia. 23-hour day stay procedure, general anesthesia, I offer a block to cover a lateral incision around the knee. Mid-December table, C arm, Synthes screwdrivers and West elevators. Patient may call or return sooner for any additional questions or changes in condition. Portions of this note were generated by Telepath. Errors of wireless development manager may occur- please feel free to reach out with any corrections or clarifications you may require. Time spent face to face with patient: 13 minutes [email or web address] Not available 02/26/2025 11:59:11 Plan of Treatment Reminders Order Date Submit Date Provider Last Modified By Organization Details Last Modified Time Details Appointments POST OP 15 2024 11:00A M Storm Newman MD Not available Not available Not available Lab None recorded . Referral None recorded . Procedures None recorded . Surgeries None recorded . Imaging XR, knee, 1 or 2 view - 312 right knee 2v include all hardware , recheck 2024 025 [facility], [address], [place], [address], 03/01/2025 09:29:16 XR, knee, 1 or 2 view - 312 right knee 2v recheck 2024 025 [facility], [address], [address], [place], [address], 01/31/2025 08:53:50 XR, knee, 1 or 2 view - 310 2V RT KNEE RECHECK 2024 025 [facility], [address], [address], [place], [address], 12/13/2024 09:52:10 XR, knee, 1 or 2 view - 312 2V RIGHT KNEE GLOBAL 2023 024 [facility], [address], [place], [address], 11/01/2024 15:09:49 XR, knee, 1 or 2 view - First post op right proximal tib ORIF, room 301 2023 024 [facility], [address], [address], [place], [address], 08/29/2024 14:15:07 Medication Orders None recorded . Patient TargetsNo [...] 6 weeks plus independent home exercise program [email or web address] Not available 10/12/2024 11:45:09 11/23/2024 [id number] physical therapy * - Right tibial plateau fracture, radiographically healed. Patient has excellent range of motion, but some residual varus valgus instability. Please assist with strengthening, gait, continued balance. She may use a cane as needed, brace or sleeve as needed. 1-2 times a week x 4 to 6 weeks plus independent home exercise program. CHRIS Not available 11/28/2024 15:55:00 Reason for Referral None Reported. Results Created Date Observation Date Name Description Value Unit Range Abnormal Flag Note LastModifiedBy Organization Detail LastModifiedTime 09/04/2008/08/2024 CT, angio gram, lower extre mity, w/wo contr ast No observ ation record ed. BARCODE Not Available 2023 09:53:04 10/12/2010/12/2024 XR, knee, 1 or 2 view [email or web address]:/ [email or web address] ?Encry pted=s hAaTro YD8dLq bEUv6g %2BXZw aYqtaq 0bqfl% 2Fg9IQ a4ajBk vP9nXo QUaueC m3YtLR FvZlgJ JJ8mAn HZtai3 7c2275 AC0Kqb nuCVqK lKiQtr MwF INTERFACE [facility] [address], [address], 10/12/2024 11:17:50 10/12/20 24 10/12/2024 XR, knee, 1 or 2 view [email or web address]:/ [email or web address] ?Encry pted=s hAaTro YD8dLq bEUv6g %2BXZw aYqtaq 0bqfl% 2Fg9IQ a4ajBk vP9nXo QUaueC m3YtLR FvZlgJ JJ8[place] HZtai3 7r3906 AC0Kqb nuCVqK lKiQtr MwF INTERFACE [address], [address], 10/12/2024 11:17:52 11/23/19 25 11/23/2024 XR, knee, 1 or 2 view [email or web address]:/ [email or web address] ?Encry pted=s hAaTro YD8dLq bEUv6g %2BXZw aYqtaq 0bqfl% 2Fg9IQ a4ajBk vP9nXo QUaueC m3YtLR FvZlg JJ8[place] HZtai3 4g3085 AC0Kqb HiEWaW nKiQtr MwF INTERFACE [facility] [address] [place] [address], [place], [address], 11/23/2024 10:41:39 11/23/19 25 11/23/2024 XR, knee, 1 or 2 view http:/ [email or web address] ?Encry pted=s hAaTro YD8dLq bEUv6g %2BXZw aYqtaq 0bqfl% 2Fg9IQ a4ajBk vP9nXo QUaueC m3YtLR FvZlgJ JJ8mAn HZtai3 3k2087 AC0Kqb HiEWaW nKiQtr MwF INTERFACE [facility] [address] [address], [place], [address], 11/23/2024 10:41:41 01/19/20 25 01/18/2025 XR, knee, 1 or 2 view [email or web address]:/ [email or web address] ?Encry pted=s hAaTro YD8dLq bEUv6g %2BXZw aYqtaq 0bqfl% 2Fg9IQ a4ajBk vP9nXo QUaueC m3YtLR FvZlg JJ8[place] HZtai3 1t5806 AC0KqY 3yAUKe iKiQtr MwF INTERFACE [facility] [address] [address], [place], [address], 01/18/2025 11:01:53 01/19/20 25 01/18/2025 XR, knee, 1 or 2 view [email or web address]:/ [email or web address] ?Encry pted=s hAaTro YD8dLq bEUv6g %2BXZw aYqtaq 0bqfl% 2Fg9IQ a4ajBk vP9nXo QUaueC m3YtLR FvZlgJ JJ8mAn HZtai3 8s1535 AC0KqY 3yAUKe iKiQtr MwF INTERFACE [facility] [address] [address], [place], [address], 01/18/2025 11:01:55 02/27/20 25 02/26/2025 XR, knee, 1 or 2 view http:/ [email or web address] ?Encry pted=s hAaTro YD8dLq bEUv6g %2BXZw aYqtaq 0bqfl% 2Fg9IQ a4ajBk vP9nXo QUaueC m3YtLR FvZlgJ JJ8mAn HZtai3 8d3450 AC0Kla nWMWKe lKiQtr MwF INTERFACE [facility] [address] [facility] [address], [place], [address], 02/26/2025 11:12:22 02/27/20 25 02/26/2025 XR, knee, 1 or 2 view http:/ [email or web address] ?Encry pted=s hAaTro YD8dLq bEUv6g %2BXZw aYqtaq 0bqfl% 2Fg9IQ a4ajBk vP9nXo QUaueC m3YtLR FvZlgJ JJ8mAn HZtai3 2z8636 AC0Kla nWMWKe lKiQtr MwF INTERFACE [facility] [address] [facility] [address], [place], [address], 02/26/2025 11:12:23 Result Notes Documentation Provider Name and Address Organization Details Recorded Time Xr, Knee, 1 Or 2 View : [email or web address] Encrypted=cvJwMxlWQ1rMusT Uv6g%6VERdjYvkiu9yfwc%2Fg 3FWs1hqQhpY4dMxJLobzDi3Ed FVIoQqfASC3cOiJJbqr00z921 6JH8IsvsmFMgJhHgYheSaW Not Available [facility] 10/12/2024 11:17: 51 Xr, Knee, 1 Or 2 View : [email or web address] Encrypted=qvFwCmlVA1eFceH Uv6g%3QUKuyGfkjw7kuqd%2Fg 2NKj1zoCxoA1oNwXJokrFm9In APNhFilNHA3jJpDEtir66j445 4ER9MdbdbXRmOpBlRazKiE Not Available [facility] 10/12/2024 11:17: 53 Xr, Knee, 1 Or 2 View : [email or web address] Encrypted=hfHnOpqOO9lYawG Uv6g%3UVZqqJjhir5cilc%2Fg 3LYv3zuHjiW1mIpVRokkKc6Gf OBEfGwhVPE2uPvHKuut76n572 5EZ2AtlPxQJaAeAjWwrPvV Not Available [facility] 11/23/2024 10:41: 39 Xr, Knee, 1 Or 2 View : [email or web address] Encrypted=luVuPsoYQ5oXmbW Uv6g%2DNClmDmfgb4ceox%2Fg 5QXw6qoAhwH8xCdIVckhKt9Qt TOSwIcjDIT9uEjCLppj06o874 8GO3NczJpHIyJvRfDszSmZ Not Available [facility] 11/23/2024 10:41: 41 Xr, Knee, 1 Or 2 View : [email or web address] Encrypted=ifHoGaoKR1tBapS Uv6g%2SFHwvXjvll0lfst%2Fg 0DNo9qcOjvY5xMvMHdxuAx9Dc TSDkRlbETO0dPaODoli99z379 7SY3JbY5fSJXamZcTvlIzA Not Available [facility] 01/18/2025 11:01: 54 Xr, Knee, 1 Or 2 View : [email or web address] Encrypted=vpZvSkcHJ4wApaF Uv6g%9ETLeqUtdkk3rvgb%2Fg 7XAy8fbJkuD8rOfWVqieUr8Ng XPScOnjJOU5eJdIKmik97c642 4WT3OxM1hUNWlqYeAugSzZ Not Available [facility] 01/18/2025 11:01: 56 Xr, Knee, 1 Or 2 View : [email or web address] Encrypted=sgSnZadJX2rOunU Uv6g%2LWScsYllxb5jlcc%2Fg 6VNu5nxBptE8zXaMGepaIn3Er MVXbPooTSR0mUsIXdnl32w175 3IW3LnfuEEVMrqLeTxtEbH Not Available [facility] 02/26/2025 11:12: 22 Xr, Knee, 1 Or 2 View : [email or web address] Encrypted=myFaQjnKM5jSphN Uv6g%4MWAlqKfatz7fxwb%2Fg 3HWr6dwHqbH9fTpXEbohSr2My CECuThkVKY8aFxGOmbd64n978 4KE1RogjRGNMakIlIuwXqR Not Available [facility] 02/26/2025 11:12: 24 Problems Name Problem SNOMED Code Status Onset Date Resolution Date Notes Provider Name and Address Organization Details Recorded Time Closed bicondylar fracture of plateau of right tibia 0849838864910 9101 Active 2023 ANUJ gray [facility] 14:27:51 Open fracture of upper end of right tibia 8966845278109 9101 Active 2023 ANUJ gray [facility] 14:27:52 Problem Notes None recorded. Procedures Surgical History Date Name Laterality Status Provider Name and Address Organization Details Recorded Time 04/10/20 25 SURGICAL HARDWARE REMOVAL (SURG) completed MARIA G WOODARD [facility] 04/12/2025 11:17:05 08/09/20 24 open reduction of fracture of proximal tibia with internal fixation completed HEMALATHA TILLEY [facility] 10/12/2024 11:11:48 total replacement of left knee joint completed HEMALATHA TILLEY [facility] 10/12/2024 11:11:55 surgical procedure on frontal sinus completed HEMALATHA TILLEY [facility] 10/12/2024 11:12:13 hysterectomy completed HEMALATHAYOU TILLEY [facility] 10/12/2024 11:12:25 operative procedure on foot completed HEMALATHA TILLEY [facility] 10/12/2024 11:12:35 tonsillectomy completed HEMALATHAYOU TILLYE [facility] 10/12/2024 11:12:41 repair of musculotendinous cuff of shoulder completed HEMALATHA TILLEY [facility] 10/12/2024 11:12:49 lumpectomy of breast completed HEMALATHAYOU TILLEY [facility] 10/12/2024 11:12:54 Imaging Results None recorded. Procedure Notes None recorded. Medical Equipment None Reported. Allergies Allergen ID Allergen Name Allergen Category Reaction Reaction Severity Criticality Documentation Date Start Date Code Code System Note Provider Name and Address Organization Details Recorded Time 371067 Flagyl medicatio n Not available Not available Not available 08/29/2024 6 [facility] 11:05:41 [id number] amoxicill in medicatio n Not available Not available Not available 08/29/2024 723 [facility] 11:05:49 Medications Name Sig Start Date Stop Date Status Note LastModified by Organization Details LastModified Time celecoxib 200 mg capsule TAKE 1 CAPSULE BY MOUTH TWICE DAILY WITH FOOD NEEDED active Not Available Not Available No t Available clotrimazol e 10 mg lionel TAKE 1 TABLET DISSOLVED SLOWLY IN THE MOUTH BY ORAL ROUTE 5 TIMES PER DAY 11/23 completed Not Available Not Available Not Available nystatin 100,000 unit/mL oral suspension TAKE 5 MILLILITE RS (500,000 UNIT) BY ORAL ROUTE 3 TIMES PER DAY 11/23 completed Not Available Not Available Not Available [place] Thyroid 90 mg tablet TAKE 1 TABLET BY MOUTH ONCE DAILY active Not Available Not Available No t Available doxycycline hyclate 100 mg capsule TAKE 1 CAPSULE BY MOUTH TWICE A DAY FOR 5 DAYS FOR SINUS INFECTION 11/23 completed Not Available Not Available Not Available oxybutynin chloride ER 10 mg tablet,exte nded release 24 hr TAKE 1 TABLET BY MOUTH EVERY DAY active Not Available Not Available No t Available azithromyci n 250 mg tablet TAKE 2 TABLETS BY MOUTH TODAY, THEN TAKE 1 TABLET DAILY FOR 4 DAYS DIRECTED 11/23 completed Not Available Not Available Not Available fosfomycin tromethamin e 3 gram oral packet TAKE 1 PACKET BY MOUTH EVERY 72 HOURS active Not Available Not Available No t Available phenazopyri dine 200 mg tablet TAKE 1 TABLET BY MOUTH EVERY 8 HOURS NEEDED FOR PAIN/BURN ING WITH URNIATION active Not Available Not Available No t Available amlodipine 2.5 mg tablet TAKE 1 TABLET DAILY active Not Available Not Available No t Available ciprofloxac in 250 mg tablet TAKE 1 TABLET BY MOUTH EVERY 12 HOURS 11/23 completed Not Available Not Available Not Available prochlorper azine maleate 10 mg tablet TAKE 1 TABLET BY MOUTH EVERY DAY NEEDED active Not Available Not Available No t Available ciprofloxac in 500 mg tablet TAKE 1 TABLET BY MOUTH TWICE A DAY active Not Available Not Available No t Available sulfamethox azole 800 mg-trimetho prim 160 mg tablet TAKE 1 TABLET BY MOUTH TWICE A DAY FOR 5 DAYS 11/23 completed Not Available Not Available Not Available oxycodone-a cetaminophe n 5 mg-325 mg tablet TAKE 1 TABLET BY MOUTH EVERY 6 HOURS NEEDED FOR PAIN 11/23 completed Not Available Not Available Not Available methenamine hippurate 1 gram tablet PLEASE SEE ATTACHED FOR DETAILED DIRECTION S 11/23 completed Not Available Not Available Not Available cephalexin 500 mg capsule TAKE 1 CAPSULE BY MOUTH EVERY 12 HOURS FOR 10 DAYS 11/23 completed Not Available Not Available Not Available montelukast 10 mg tablet TAKE 1 TABLET BY MOUTH EVERY DAY active Not Available Not Available No t Available levofloxaci n 750 mg tablet TAKE 1 TABLET BY MOUTH EVERY DAY 11/23 completed Not Available Not Available Not Available letrozole 2.5 mg tablet TAKE 1 TABLET BY MOUTH EVERY DAY active Not Available Not Available No t Available ondansetron 4 mg disintegrat ing tablet PLACE 1 TABLET IN THE MOUTH EVERY 12 HOURS FOR 5 DAYS 11/23 completed Not Available Not Available Not Available cefdinir 300 mg capsule TAKE 1 CAPSULE BY MOUTH EVERY 12 HOURS 11/23 completed Not Available Not Available Not Available fluticasone propionate 50 mcg/actuati on nasal spray,suspe nsion SPRAY 2 SPRAYS INTO EACH NOSTRIL ONCE DAILY active Not Available Not Available No t Available dicyclomine 10 mg capsule TAKE 1 CAPSULE BY MOUTH THREE TIMES A DAY active Not Available Not Available No t Available Ventolin HFA 90 mcg/actuati on aerosol inhaler INHALE 2 PUFFS BY MOUTH EVERY 4 TO 6 HOURS NEEDED FOR WHEEZING active Not Available Not Available No t Available bupropion HCl XL 300 mg 24 hr tablet, extended release TAKE 1 TABLET BY MOUTH EVERY DAY 11/23 completed Not Available Not Available Not Available bupropion HCl XL 150 mg 24 hr tablet, extended release TAKE 1 TABLET BY MOUTH EVERY DAY WITH 300 MG XL DOSE = TOTAL 450 MG ONCE A DAY active Not Available Not Available No t Available nitrofurant oin monohydrate /macrocryst als 100 mg capsule TAKE 1 CAPSULE BY MOUTH TWICE A DAY 11/23 completed Not Available Not Available Not Available melatonin active Not Available Not Rosmery ilable Not Available Vistaril active Not Available Not Avai lable Not Available Lovenox 11/23 completed Not Available Not Available Not Available tramadol 11/23 completed Not Available Not Available Not Available Tylenol active Not Available Not Avail able Not Available trazodone 11/23 completed Not Available Not Available Not Available Carafate active Not Available Not Avai lable Not Available gabapentin active Not Available Not Av ailable Not Available Symbicort 160 mcg-4.5 mcg/actuati on HFA aerosol inhaler INHALE 2 PUFF ORALLY 2 TIMES A DAY active Not Available Not Available No t Available ascorbic acid (vit C) 1,000 mg-multivit tovar with minerals no.18 tablet Take by oral route. active Not Available Not Available No t Available Probiotic active Not Available Not Rosmery ilable Not Available D3 DOTS active Not Available Not Avail able Not Available Myrbetriq 50 mg tablet,exte nded release TAKE 1 TABLET BY MOUTH EVERY DAY active Not Available Not Available No t Available Breo Ellipta 200 mcg-25 mcg/dose powder for inhalation INHALE 1 PUFF INHALED DAILY FOR ASTHMA/CO PD FOR 30 DAYS active Not Available Not Available No t Available Gemtesa 75 mg tablet TAKE 1 TABLET BY MOUTH EVERY DAY active Not Available Not Available No t Available Paxlovid 300 mg (150 mg x 2)-100 mg tablets in a dose pack TAKE 3 TABLETS BY MOUTH TWICE A DAY FOR 5 DAYS 11/23 completed Not Available Not Available Not Available Vitals Date Recorded Body height Body mass index (BMI) Body weight Provider Name and Address Organization Details Last Updated DateTime 11/23/2024 154.94 cm 23.1 kg/m2 35982.27 g HEMALATHA TILLEY [place] [facility] [place] [facility] 11/23/2024 10:29:32 Date Recorded Body height Body mass index (BMI) Body weight Provider Name and Address Organization Details Last Updated DateTime 01/18/2025 154.94 cm 23.1 kg/m2 55130.27 g HEMALATHA TILLEY [facility] 01/18/2025 10:48:20 Date Recorded Body height Body mass index (BMI) Body weight Provider Name and Address Organization Details Last Updated DateTime 02/26/2025 154.94 cm 23.1 kg/m2 65219.27 g HEMALATHA TILLEY [facility] 02/26/2025 11:03:33 Date Recorded Body height Body temperature Body mass index (BMI) Body weight Provider Name and Address Organization Details Last Updated DateTime 08/29/2024 154.94 cm 98.1 [degF] 23.1 kg/m2 71442.27 g FABI MARLA [facility] 08/29/2024 11:05:26 Date Recorded Body height Body mass index (BMI) Body weight Provider Name and Address Organization Details Last Updated DateTime 10/12/2024 154.94 cm 23.1 kg/m2 54290.27 g HEMALATHA TILLEY [facility] 10/12/2024 11:10:53 Social History None recorded. Functional Status None recorded. Mental Status None recorded. Family History Nothing Reported. Medical History Condition Response Allergies/Hayfever N Coronary Artery Disease N Breathing or lung disorders Y Anxiety/Depression N Emphysema N Nerve Disorders N Thyroid Problems Y COPD N Pacemaker N Kidney/Bladder Problems N Anemia N Vascular Disease N Heart Trouble N Heart Attack ([place]) N Gastrointestinal Disease N Cholesterol N Diabetes N Autoimmune disease N Inflammatory Joint disease N Bleeding Disorder N Orthotics N Seizures/Epilepsy N Arthritis Y Blood Clot N AIDS/HIV N Congestive Heart Failure (CHF) N Acid Reflux (GERD) Y Cancer Y Stroke N Asthma N Circulation Problems N Peripheral Vascular Disease N Sleep Apnea N Hepatitis N Heart Disease N Rheumatoid Arthritis N Pulmonary Embolism N Arrhythmia N Headaches N Fibromyalgia N Hypertension Y Osteoporosis N Gynecological HistoryNo gynecological history recorded. Obstetrics History GPAL:G 0 P 0 0 0 0 Past Encounters Encounter ID Performer Location Encounter Start Date Encounter Closed Date Diagnosis/Indication Diagnosis SNOMED-CT Code Diagnosis ICD10 Code Diagnosis Note [id number] LEILANI Jackson 3rd floor [address] [place] [address] 08/29/2024 10:33:52 09/28/2024 17:42:43 Open fracture of upper end of right tibia [id number] S82.101B [id number] MD Rosaline Griggs 3rd floor [address] [place] [address] 10/12/2024 11:00:50 11/01/2024 15:09:48 Open fracture of upper end of right tibia [id number] [id number] MD ABRAHAM Griggs [facility] [address] [place] [address] 11/23/2024 10:07:23 12/13/2024 09:52:10 Open fracture of upper end of right tibia [id number] [id number] MD ABRAHAM Griggs [facility] [address] [place] [address] 01/18/2025 10:42:48 01/31/2025 08:53:50 Closed fracture of proximal end of right tibia [id number] S82.101A Closed bic ondylar fracture of plateau of right tibia [id number] [id number] MD ABRAHAM Griggs [facility] [address] [place] [address] 02/26/2025 10:51:35 03/01/2025 09:29:16 Closed bicondylar fracture of plateau of right tibia [id number] S82.141A Health Concerns Section Related Observation LastModified by Organization Detai ls LastModified Time None Recorded Concern Status LastModified by Organization Details LastModified Time None Recorded Advance Directives Directive None Recorded Payers Insurance Date Sequence Insurance Name Policy Number Policy Alegre Covered Member ID Alegre Member ID Guarantor Name 09/12/2024 1 *SELF PAY* Ying Deleon 04/10/2025 1 [place] [employer] Marilyn Alan [id number] Marilyn Alan 04/13/2025 2 [place] [id number] Marilyn Alan [id number] Marilyn Abdalla Elizabethilana 09/12/2024 1 [place] [employer] Marilyn Alan [id number] Marilyn Abdalla Elizabethilana 02/26/2025 [facility] Marilyn Abdalla Elizabehtilana [id number] Marilyn Abdalla Waqas 03/24/2025 [facility] CLAIMS (MEDICARE DME REGION A) Marilyn Abdalla Elizabethilana [id number] Marilyn Alan Notes Date Note Type Note [...] reviewed, updated and is located in the patient s chart. EXAMINATION: Knee immobilizer taken down. Incision [...] visit note. This note was generated with [facility] speech recognition wireless development manager dictation software. Please excuse any errors that may have been overlooked during review of this note. Sometimes, these errors may affect the content or meaning of a given sentence. Please call for corrections. Hemalatha Yu PA-C [address] [place] [address] [address], [place], [address], [facility] - [facility] 08/29/2024 15:44:13 10/12/2024 text/html CHIEF COMPLAINT: [...] - Alcohol use mentioned Storm Newman MD [address], [place], [address], [facility] 2024 18:14:16 11/23/2024 text/html CHIEF COMPLAINT: - Follow-up HPI: Ms. Alan presents for follow-up after a right proximal tibia fracture from falling down stairs at home on 08-09-2024. She has been using a hinged brace and progressed to a cane for ambulation. She reports doing well with in-home physical therapy, which she plans to end on Wednesday. She desires to start outpatient physical therapy, stating that outpatient facilities have more equipment and can provide more comprehensive treatment. She reports improving range of motion and can walk a few steps without the cane but notes that it depends on knee fatigue. She reports good overall function and mobility. She denies significant pain but expresses concern about ligament healing, inquiring about the expected timeline for ligament recovery. She also worries about long-term cane use, expressing a desire to regain independent mobility without assistive devices. Ms. Alan denies any history of current arthritis in the affected knee. MEDICAL HISTORY: - Reflux - Arthritis - COPD - Hypertension - Hypothyroidism - Breast cancer: history of MEDICATIONS: - Vitamin D SURGICAL HISTORY: - Hysterectomy - Lumpectomy - Previous foot surgery - Rotator cuff repair - Sinus surgery - Tonsillectomy - Left total knee replacement PREVIOUS TREATMENTS: - Ms. Alan had been using a hinged brace following a proximal tibia fracture on 08-09-2024. - Ms. Alan has been receiving physical therapy at home. - Ms. Alan is currently using a cane for mobility, which she can use as needed. [NEW SECTION]: - Amoxicillin - Flagyl Storm Newman MD [address], [place], [address], [facility] 11/23/2024 17:21:18 01/18/2025 text/html CHIEF COMPLAINT: - Right bicondylar tibial plateau fracture follow-up HPI: Ms. Alan presents for follow-up after right bicondylar plateau fracture repair on August 09, 2024. She reports improvement in mobility, stating she is able to walk around the house without assistance most of the time. She can walk approximately 40 feet in her home before needing to stop, primarily due to weakness. She uses a cane for ambulation, which helps with balance and stability. Her leg is still weak but improving. She experiences stiffness, particularly with changes in weather, and has periodic light discomfort on the inside of the knee. Her knee is starting to develop a valgus deformity. She notes tenderness on the medial aspect of the knee, which has been consistently present. She is currently undergoing PT, which she describes as challenging but beneficial, contributing to her improvement. She denies any new medical diagnoses. MEDICATIONS: - Celebrex - Gabapentin - Tylenol - Multiple pulmonary medications - Vitamin D SURGICAL HISTORY: - Right tibial plateau fracture repair: August 09, 2024 PREVIOUS TREATMENTS: - She initially used a wheelchair and walker post-surgery - Currently using a cane for mobility, with varying effectiveness depending on the day - Ongoing PT, which is described as challenging but beneficial [NEW SECTION]: - Serena - Guille Newman MD [address] [place] [address] [address], [place], [address], [facility] 01/18/2025 12:49:03 02/26/2025 text/html CHIEF COMPLAINT: - Hardware removal consideration for proximal tibia fracture. HPI: Ms. Alan presents for post-op evaluation following ORIF of a proximal tibia fracture on 08/09/2024. She had pre-existing valgus alignment issues, which initially improved post-operatively but then worsened. Two weeks ago, she twisted her leg while descending stairs, causing pain from the leg up to the hip. She reports ongoing soreness throughout the leg, including the front of the leg, with constant aching on the inside of the knee and a palpable bump where the hardware is located. She expresses a lack of confidence in her leg's stability. She has a history of left total knee replacement. She requests hardware removal and expresses urgency in scheduling the procedure. She denies any numbness or tingling in the affected leg. MEDICATIONS: - Amlodipine - Thyroid medication - Breo Ellipta - Bupropion - Carafate - Celebrex - Cipro - Vitamin D - Dicyclomine - Fluticasone - Fosfomycin - Gabapentin - Gemtesa - Letrozole - Melatonin - Montelukast - Myrbetriq - Oxybutynin - Probiotics - Symbicort - Ventolin - Vistaril - Tylenol - Phenazopyridine SURGICAL HISTORY: - Hysterectomy - Lumpectomy of breast - Foot surgery - Rotator cuff surgery - Sinus surgery - Tonsillectomy - Left total knee replacement PREVIOUS TREATMENTS: - ORIF of a proximal tibia fracture on 08/09/2024. Allergies]: - Amoxicillin - yl Storm Newman MD [address] [place] [address] [address], [place], [address], [place] - [facility] 02/26/2025 11:59:24 OBGyn Episode No OBEpisode recorded.
--- OUTSIDE RECORDS SUMMARY | 2025-04-17 14:19 | XMS_ITS | Clinical Summary ---
Author Organization [facility] Address [address] [place] [address] Care Team Providers Care Stock Speculator Name Role Phone Sandeep Cedeño MD Primary [...] 66 08/12/2022 11:32 AM EDT Temperature 37.2 C (99 F) 08/12/2022 11:32 AM EDT Respiratory Rate - [...] Osteoporosis Screening (DEXA Scan) 2015 Influenza Vaccine (Season Ended) 2025 RSV Adult > 60+ Yrs or Pregn ant (1 - 1-dose 75+ series) 2025 Hepatitis B Vaccines Aged Out No long er eligible based on patient's age to complete this topic RSV Ped < 20 months Aged Out No longe r eligible based on patient's age to complete this topic Care Teams Stock Speculator Relationship Specialty Start Date End Date Sandeep Cedeño MD [address] [place] [id number] PCP - General Family Medicine 05/15/21
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
[2025-04-17 14:31] LABS: Alanine Aminotransferase 25 U/L (0-31); Albumin Level 4.2 g/dL (3.5-5.0); Alkaline Phosphatase 59 U/L (39-117); Anion Gap 12 (12-20); Aspartate Amino Transferase 27 U/L (5-31); Blood Urea Nitrogen 12 mg/dL (9-16); Calcium 9.0 mg/dL (8.4-10.2); Carbon Dioxide 24 mmol/L (22-29); Chloride 99 mmol/L (96-108); Cholesterol 190 mg/dL (<200); Estimated Glomerular Filt Rate > 60; HDL Cholesterol 51 mg/dL (>40); Potassium 4.3 mmol/L (3.3-5.1); Sodium 131 mmol/L (135-145); Total Protein 7.9 g/dL (6.5-8.0); Triglycerides 111 mg/dL (<150)
[2025-04-17 14:48] LABS: Thyroid Stimulating Hormone 4.49 uIU/mL (0.32-4.0)
== END 2025-04-17 13:13 | disposition home or self-care (01) ==
LOC: HO.LAB 13:12
PROVIDERS: PCP Family Medicine; Visit Provider Family Medicine
DX: I10 Essential (primary) hypertension (principal); E03.9 Hypothyroidism, unspecified
CPT/HCPCS: 36415; 80053; 80061; 84443; 85025; 85652

== ENCOUNTER 2025-05-02 11:16 | Outpatient (AMB) | payer MEDICARE, SELFPAY ==
--- NOTE | 2025-05-02 11:26 | A.OFFVIS_ITS ---
Vital Signs 05/02/25 11:27 Height 5 ft 1.5 in Weight 110 lb BMI 20.4 Blood Pressure Location Lt brachial Position Sitting Oxygen Delivery Method Room Air Intake Visit Reasons: blood in stool-stephanie pt Intake Note: Patient new consult for blood in stool/Stephanie pt edgar was 11/07/2020 Patient cc: diarrhea with bloody stool, sharp abdominal pain on and off, chronic abdominal bloating, some swallowing difficulties, with poor dizzinees with fatigue and tidness. Ordnance Technician Required: No Accompanied by: Self / Same As Patient Allergies amoxicillin (AMOXICILLIN) Allergy (Unknown, Verified 05/02/25 11:26) SEVERE DIARRHEA, diarrhea fLAGYL Adverse Reaction (Severe, Uncoded 11/21/24 14:01) Shortness of Breath Medication List - Last Reconciled 05/02/25 by Rain Kumar CNP acetaminophen ER (Tylenol Arthritis Pain) 650 mg PO .nightly amlodipine 2.5 mg PO DAILY Bifidobacterium combo no.9 (Adult 50 Plus Probiotic Sherita) cells PO Breo Ellipta 200-25 mcg/dose (fluticasone furoate-vilanterol) 1 ea inhalation DAILY 30 days NS celecoxib 200 mg PO BID dicyclomine 10 mg PO TID 90 days fluticasone propionate 50 mcg/actuation 2 sprays intranasal DAILY immune glob G (IgG)-glycine 15-18 % range 80 mL TUFR letrozole 2.5 mg PO DAILY@1999 montelukast 10 mg PO DAILY@1999 oxybutynin chloride ER 10 mg PO BEDTIME prochlorperazine maleate 10 mg PO DAILY PRN sertraline 50 mg PO DAILY thyroid (pork) ([place] Thyroid) 90 mg PO DAILY Ventolin HFA 90 mcg/actuation (albuterol sulfate) 2 puffs PO Q4-6H PRN 60 days NS vibegron (Gemtesa) 75 mg PO DAILY HPI HPI blood in stool-stephanie pt: Details: Patient is a 74-year-old female with PMH of asthma, COPD, Hep C s/p successful treatment, breast cancer in remission. Last visit with JAYDE White 11/07/2020 for follow up IBS. The patient reports rectal bleeding with blood appearing as bright red streaks mostly observed during wiping, sometimes noticeable in the toilet bowl. The diarrhea began six weeks ago, following antibiotic use for URI. The stools are sometimes accompanied by a sharp pain in the right lower quadrant of the abd omen. The pain is intermittent. The patient also reports a hernia in the same area since December awaiting surgical evaluation in June; also has a longstanding umbilical hernia and a moderately large hiatal hernia noted on prior imaging. Occasional nausea but no vomiting, though severe gas pain and bloating are present. Appetite is decreased and has chronically fluctuated, with unintentional weight loss (117 lbs to 110 lbs since November). Heartburn occurs intermittently, resolving with water. Baseline dysphagia due to hiatal hernia, no recent change. No fever. Probiotics (Align, Saccharomyces boulardii) and Israeli yogurt used daily. Family hx notable for brother with colon ca at 75. Social hx: -denies ETOH Use, last use 30-40 years ago -denies recreational drug use -former smoker, cessation at age 25 - family hx as below -tolerated anesthesia in the past without difficulty. calculate wt loss. [facility] Medical History (Updated 05/02/25 @ 16:59 by Rain Kumar CNP) Unintentional weight loss Rectal bleeding Hiatal hernia Diarrhea Bronchitis Ductal carcinoma in situ (DCIS) of left breast Abnormality of left breast on screening mammography Hypogammaglobulinemia IBS (irritable bowel syndrome) Asthma Pulmonary nodules/lesions, multiple COPD (chronic obstructive pulmonary disease) Allergic rhinitis Surgical History H/O sinus surgery History of tonsillectomy H/O: hysterectomy H/O tubal ligation History of total left knee replacement Family History (Updated 05/02/25 @ 11:56 by Rain Kumar CNP) Brother Cancer Social History Household Members: None Household Members Other:: grandson comes on the weekends Housing: House Do you presently have visiting nurse or other home services: No Alcohol intake: never Patient Tobacco Use Status: Former Tobacco user Tobacco use type: Cigarette Cigarette Packs Per Day: 1 Cigarettes Per Day: 20.0 Years Smoked: 10 Second Hand Smoke Exposure: No Substance Use Type: Marijuana service: No Current occupational status: unemployed Female Reproductive History Menstrual Age of Menarche: 12 Review of Systems Const Reports as per HPI ENT Reports as per HPI Card Reports as per HPI Resp Reports as per HPI GI Reports as per HPI Reports as per HPI Physical Exam Vital Signs: Oxygen Delivery Method Room Air 05/02/25 11:27 BMI result Body Mass Index 20.4 Const General: healthy appearing, no acute distress and well developed Nutritional Appearance: well nourished Orientation/consciousness: patient oriented x3 HEENT Head: Yes normal to inspection, Yes normocephalic and Yes atraumatic Face and sinus: Yes normal facial exam Eyes General: appearance normal, both eyes and all related structures Neck Neck: Yes normal visual inspection Resp Effort & Inspection: normal respiratory effort, able to speak in complete se ntences, no tracheal deviation and symmetric chest movement Auscultation: clear to auscultation bilaterally Cardio Jugular venous distension: no JVD Rate: regular rate Rhythm: regular rhythm Heart sounds: S1 normal heart sound present, S2 normal heart sound present, no gallops and no murmurs GI Inspection: Yes normal to inspection, No distended and Yes other (ab bloating) Palpation (GI): Soft to palpation, not firm, nontender and No hepatosplenomegaly present Auscultation: normal bowel sounds Neuro General: patient oriented x3 Gait exam (Neuro): Normal gait present Psych Appearance: grossly normal Mental Status: mental status grossly normal Speech and movement: Normal speech and movement present Affect: normal affect Attitude: cooperative Thought process: Normal thought process present Thought content: Normal thought content present Insight: Good insight present (Psych) Judgement: Good judgement present (Psych) Results Reviewed Results Reviewed: Date of Service: 05/14/24 Procedure(s): CT abdomen pelvis w IV con Accession Number(s): [id number] cc: Sandeep Mares; Jenny Cabezas MD~ EXAMINATION: CT ABDOMEN AND PELVIS WITH CONTRAST CLINICAL INFORMATION: Left lower quadrant pain; history of diverticulitis. COMPARISON: Abdominal ultrasound dated 04/23/2020; CT abdomen and pelvis dated 03/25/2012. TECHNIQUE: Multidetector volumetric images were obtained from the superior aspect of the liver through the pubic symphysis following administration 85 mL of Omnipaque 350 intravenous contrast. Sagittal and coronal reformatted images were obtained on the technologist's workstation. Oral contrast: No This CT examination was performed using dose optimization techniques as appropriate, variously including the following: *Automated exposure control *Adjustment of mA and/or kV according to patient size (this includes techniques or standardized protocols for targeted exams where dose is matched to indication/reason for exam; i.e. extremities or head) *Use of iterative reconstruction technique DLP: 495 mGy-cm FINDINGS: LUNG BASES: There is a moderately large hiatus hernia. There is mild bibasilar dependent hypoaeration. LIVER, GALLBLADDER, AND BILIARY TREE: The liver is normal in size, shape, and attenuation. No focal hepatic lesion or biliary ductal dilatation is present. The gallbladder is unremarkable with no evidence of radiopaque gallstones, gallbladder wall thickening, or obvious pericholecystic inflammatory changes. PANCREAS: Unremarkable. SPLEEN: Unremarkable. ADRENAL GLANDS: Unremarkable. KIDNEYS AND URETERS: The kidneys are normal in size, shape, and attenuation. No hydronephrosis, hydroureter, or calculi seen. At the interpolar aspect of the right kidney (2:31), a 1.0 cm exophytic simple cyst is seen, with postcontrast Hounsfield value of -8.4 units. This requires no imaging follow-up. No perinephric stranding. BLADDER: Unremarkable. GASTROINTESTINAL TRACT: There is marked diverticulosis, without acute diverticulitis. No bowel obstruction, free intraperitoneal air or abscess is seen. There is no focal bowel wall thickening. The vermiform appendix appears normal. ABDOMINAL WALL: There is a small fat-containing umbilical hernia. LYMPH NODES: There is no abdominopelvic lymphadenopathy. VASCULAR: There is moderate aortoiliac atherosclerotic calcification. No abdominal aortic aneurysm or dissection is seen. PELVIC VISCERA: Surgically absent. No pelvic mass, free fluid or lymphadenopathy is seen. OSSEOUS STRUCTURES: There are mild T11 and T12 anterior wedge compression fractures, unchanged from the lateral chest radiograph dated 07/07/2022. At L2-L3, there is degenerative disc disease, with vacuum disc phenomenon and a 3 mm retrolisthesis. No acute or aggressive osseous finding is noted. CT/CT abdomen pelvis w IV con IMPRESSION: 1. There is marked diverticulosis, without acute diverticulitis. No obstruction, free intraperitoneal air or abscess is seen. The vermiform appendix appears normal. 2. There is no urinary calculus or obstruction. 3. No abdominopelvic mass, free fluid or lymphadenopathy is seen. 4. There is a small fat-containing umbilical hernia. 5. There are stable mild T11-T12 anterior wedge compression fractures. There is degenerative disc disease at L2-L3. 6. There is a moderately large hiatus hernia. Assessment & Plan Assessment & Plan (1) Diarrhea: Code(s): R19.7 - Diarrhea, unspecified Category: Medical Qualifiers: Diarrhea type: unspecified type Qualified Code(s): R19.7 - Diarrhea, unspecified Plan: X 6 weeks with retcal bleeding. Also with 12% weight loss over the past year. C diff, Giardia, Salmonella and fecal leukocytes ruled out; along with negative fecal calprotectin based on collected 04/17/25 orderd by PCP. Also with normal CBC and CMP collected 04/17/2025. DDX: colitis VS Irritable Bowel Syndrome (IBS) exacerbation VS malabsorption VS SIBO. Additional Tests: Colonoscopy, upper endoscopy, additional stool testing to r/o other infectious source. Medications: Continue Dicyclomine, Adjust loperamide dose based on symptoms Lifestyle Modifications: Hydration with electrolyte water, avoid sugary foods, continue probiotics (Align) one is sufficient Follow-Up: Schedule colonoscopy and upper endoscopy within four to six weeks 02/01/25 1455: Spoke with Marilyn this afternoon to discuss new lab orders and chest x-ray for further evaluation of diarrhea and unexplained weight loss. She is agreeable and will present at her [facility] convenience. We reviewed medications in detail and advised she discontinue magnesium glycinate. She can continue the rian and calcium supplements. Advise treatment remains the same with Imodium up to max daily dose, continue dicyclomine as prescribed, adequate hydration and bland to diet as tolerated. Callback precautions reviewed. (2) Rectal bleeding: Code(s): K62.5 - Hemorrhage of anus and rectum Category: Medical Plan: Bright red blood per rectum, associated with diarrhea, negative infectious w/u, hx diverticulosis, family hx colon ca Additional Tests: Colonoscopy as above (r/o hemorrhoids, polyps, colitis, malignancy) Medications: No specific new meds; continue current regimen Lifestyle: Monitor for increased bleeding, signs of anemia (fatigue, pallor, SOB) Follow-Up: Call for increased bleeding, dizziness, or new sx; reassess after colonoscopy (3) Hiatal hernia: Code(s): K44.9 - Diaphragmatic hernia without obstruction or gangrene Category: Medical Plan: Symptomatic RLQ hernia since December, umbilical and moderately large hiatal hernia on imaging ( 05/14/24 CT ab/pelvis), referred to [facility] general surgery but requesting referral to [facility]. Additional Tests: Surgical referral placed on pt's behalf, imaging as per surgeon Lifestyle: Avoid heavy lifting/straining, monitor for incarceration/obstruction Plan Follow-up after endoscopy or sooner as needed Time: I spent a total of 60 minutes on the date of encounter which includes: Preparing to see the patient (reviewed previous documentation, test results and medical history) Performing a medically appropriate exam and/or evaluation Ordering medications, tests, and procedures Documenting clinical information in the health record Orders: Orders Fecal Fat Qualitative 05/02/25 R19.7 - Diarrhea, unspecified HIV Ab/Ag 05/02/25 R63.4 - Abnormal weight loss Magnesium Today R19.7 - Diarrhea, unspecified H pylori Ag Stool Today R19.7 - Diarrhea, unspecified GI Panel 05/02/25 R19.7 - Diarrhea, unspecified XR chest 2V 05/02/25 R63.4 - Abnormal weight loss Hepatitis A,B,C Profile 05/02/25 R63.4 - Abnormal weight loss Referrals General Surgery Referral K44.9 - Diaphragmatic hernia without obstruction or gangrene Medications: New polyethylene glycol 3350 (Miralax) per colonoscopy prep instructions 238 grams PO ONCE 238 grams 0RF bisacodyl Take four tablets once for 1 day per colonoscopy instructions 5 mg PO ONCE 4 tabs 0RF 1 day Coding Level of Care Code New Pt New Pt Level 5 (57826) Patient Type New Diagnoses Diarrhea, unspecified type R19.7 Diarrhea type: unspecified type Rectal bleeding K62.5 Hiatal hernia K44.9
[2025-05-02 11:27] VITALS: BMI 20.4
--- OUTSIDE RECORDS SUMMARY | 2025-05-02 12:09 | XMS_ITS | Clinical Summary ---
Author Organization [facility] Address [address] [place] [address] Care Team Providers Care Marking Stitcher Name Role Phone Sandeep Cedeño MD Primary [...] Screening (DEXA Scan) 2015 Influenza Vaccine (#1) 2025 RSV Adult > 60+ Yrs or Pregn ant (1 - 1-dose 75+ series) 2025 Hepatitis B Vaccines Aged Out No long er eligible based on patient's age to complete this topic RSV Ped < 20 months Aged Out No longe r eligible based on patient's age to complete this topic Care Teams Marking Stitcher Relationship Specialty Start Date End Date Sandeep Cedeño MD [address] [place] [phone] PCP - General Family Medicine 05/15/21
--- OUTSIDE RECORDS SUMMARY | 2025-05-02 12:09 | XMS_ITS | Patient Health Record ---
Author Organization [facility] Address [address] [facility] [address] [place] [address] Care Team Providers Care Trench Pipe Layer Name Role Phone Sandeep Mitchell Primary Care Provider Sosa Magallon MD MSc, [facility] Unavailable [phone] Allergies Allergen (clinical drug ingredient) Drug/Non Drug Allergy documented on EMR Reaction Allergy Type Onset Date Status amoxicillin Amoxicillin stomach upset Drug Allergy Active Reason For Referral No Information Medications Medication SIG (Take, Route, Fr equency, Duration) Notes Start Date End Date Status CeleBREX 200 MG 1 capsule with food Orally Twice a day Active [place] Thyroid 90 MG 1 tablet on an [...] HCl 150 MG 1 capsule at bedti nm Orally Once a day for 30 day(s) Active Social History Alcohol screen Question Answer Notes Did you have a drink containing alcohol in the p ast year? 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
--- OUTSIDE RECORDS SUMMARY | 2025-05-02 12:09 | XMS_ITS | Encounter Summary ---
Author Organization [facility] Address [address] [place] [address] Care Team Providers Care Environmental Web Crawler Name Role Phone Romero Cedeño MD Primary Care Pro[facility] Encounter Details Date Type Department Care Team (Late st Contact Info) Description 08/30/2024 Lab Requisition [facility] [address] [facility] [place] [phone] Jun Robert MD [address] [place] [address] Unspecified asthma, uncomplicated; Essential (primary) [...] Info) Description 05/31/2025 1:[address] [facility] [address] [place] [phone] 05/31/2025 2:15 PM EDT Appointment [facility] at [address] [phone] documented as of this encounter [...] PM [facility] Comment:Calculation based on the Chronic Kidney [...] MD LAB BLOOD ORDERABLES Final Resu lt [facility] [address] [place] [address], * (ABNORMAL) Complete blood count (08/31/2024 5:16 AM EST) WBC 7.0 4.8 - 10.8 K/mcL LAB HEMETOLOGY METHOD 08/31/2024 10:47 AM [facility] RBC 3.50(L) 3.80 - 4.80 M/mcL LAB HEMETOLOGY METHOD 08/31/2024 10:47 AM [facility] Hemoglobin 10.9(L) 11.5 - 16.0 g/dL LAB HEMETOLOGY METHOD 08/31/2024 10:47 AM [facility] Hematocrit 32.6(L) 35.0 - 47.0 % LAB HEMETOLOGY METHOD 08/31/2024 10:47 AM [facility] MCV 94.5 79.0 - 98.0 FL LAB HEMETOLOGY METHOD 08/31/2024 10:47 AM [facility] MCH 31.6 27.0 - 32.0 pcg LAB HEMETOLOGY METHOD 08/31/2024 10:47 AM [facility] MCHC 33.4 32.0 - 37.0 g/dL LAB HEMETOLOGY METHOD 08/31/2024 10:47 AM EST [facility] RDW 14.6 11.0 - 15.0 % LAB HEMETOLOGY METHOD 08/31/2024 10:47 AM EST [facility] Platelets 343 130 - 400 K/mcL LAB HEMETOLOGY METHOD 08/31/2024 10:47 AM [facility] MPV 8.8 7.0 - 11.0 FL LAB HEMETOLOGY METHOD 08/31/2024 10:47 AM EST [facility] NRBC 0.0 <1.0 % LAB HEMETOLOGY METHOD 08/31/2024 10:47 AM [facility] NRBC Absolute 0.00 <0.10 K/mcL LAB HEMETOLOGY METHOD 08/31/2024 10:47 AM [facility] Blood Venous blood specimen / Unknown Venipuncture / Unknown 08/31/2024 5:16 AM EST 08/31/2024 9:23 AM EST us Jun Robert MD LAB BLOOD ORDERABLES Final Resu lt [facility] [address] [place] [address], documented in this encounter Visit Diagnoses Diagnosis Unspecified asthma, uncomplicated Essential (primary) hypertension Unspecified essential hypertension documented in this encounter Care Teams Environmental Web Crawler Relationship Specialty Start Date End Date Romero Cedeño MD [address] [place] [address] PCP - General Internal Medicine 07/15/21 documented as of this encounter
== END 2025-05-02 12:19 | disposition home or self-care (01) ==
LOC: HO.HGI 11:17
PROVIDERS: PCP Family Medicine; Visit Provider Nurse Practitioner Family
DX: R19.7 Diarrhea, unspecified (principal); K62.5 Hemorrhage of anus and rectum; K44.9 Diaphragmatic hernia without obstruction or gangrene
CPT/HCPCS: 99205

== ENCOUNTER → 2025-05-02 11:16 | Outpatient (BNVA) | payer MEDICARE, SELFPAY | PROVIDERS: PCP Family Medicine; Visit Provider Nurse Practitioner Family | DX: K62.5 Hemorrhage of anus and rectum (principal); K44.9 Diaphragmatic hernia without obstruction or gangrene; R19.7 Diarrhea, unspecified | CPT/HCPCS: 99202 ==

== ENCOUNTER 2025-05-07 14:47 | Outpatient (REF) | payer MEDICARE, SELFPAY ==
--- NOTE | ~2025-05-07 | XR_ITS ---
EXAMINATION: XR CHEST CLINICAL INFORMATION: R63.4 - Abnormal weight loss COMPARISON: None available. TECHNIQUE: 2 views of the chest were obtained. FINDINGS: The cardiac, hilar, and mediastinal contours are normal. Aortic mural calcifications. Moderate-sized retrocardiac hiatus hernia with air-fluid level. The lungs are clear bilaterally. There is no pneumothorax or pleural effusion. There is no focal osseous or soft tissue abnormality. Flattening of the left humeral head. There are surgical anchors in the greater tuberosity of the humerus. XR/XR chest 2V IMPRESSION: 1. No active pulmonary disease. 2. Moderate size retrocardiac hiatus hernia. Electronically signed by: Kota Ernst MD 05/07/2025 03:16 PM EDT RP
--- OUTSIDE RECORDS SUMMARY | 2025-05-07 15:38 | XMS_ITS | Clinical Summary ---
Author Organization [facility] Address [address] [place] [address] Care Team Providers Care Statement Services Representative Name Role Phone Sandeep Cedeño MD [...] age to complete this topic Care Teams Statement Services Representative Relationship Specialty Start Date End Date Sandeep Cedeño MD [address] [place] [phone] PCP - General Family Medicine 05/15/21
--- OUTSIDE RECORDS SUMMARY | 2025-05-07 15:38 | XMS_ITS | Encounter Summary ---
Author Organization [facility] Address [address] [place] [address] Care Team Providers Care Helpdesk Specialist Name Role Phone Romero Cedeño MD Primary Care Provi [facility] Encounter Details Date Type Department Care Team (Late st Contact Info) Description 08/30/2024 Lab Requisition [facility] - Main Lab [address] [facility] [place] [phone] Jun Robert MD [address] [place] [address] Unspecified asthma, uncomplicated; Essential (primary) [...] Info) Description 05/31/2025 1:30 PM EDT Appointment [facility] [address] [place] [phone] 05/31/2025 2:15 PM EDT Appointment [facility] at [address] [phone] documented as of this encounter [...] mmol/L LAB CHEMISTRY METHOD 08/31/2024 1:18 PM [facility] Potassium 4.5 3.5 - 5.5 mmol/L LAB CHEMISTRY METHOD 08/31/2024 1:18 PM [facility] Chloride 100 96 - 110 mmol/L LAB CHEMISTRY METHOD 08/31/2024 1:18 PM [facility] CO2 22 21 - 32 mmol/L LAB CHEMISTRY METHOD 08/31/2024 1:18 PM [facility] Anion Gap 11 3 - 11 LAB CHEMISTRY METHOD 08/31/2024 1:18 PM [facility] Glucose 74 70 - 100 mg/dL LAB CHEMISTRY METHOD 08/31/2024 1:18 PM [facility] BUN 8 5 - 25 mg/dL LAB CHEMISTRY METHOD 08/31/2024 1:18 PM [facility] Creatinine 0.39(L) 0.50 - 1.10 mg/dL LAB CHEMISTRY METHOD 08/31/2024 1:18 PM [facility] eGFR 105 >=60 mL/min/1. 73m2 LAB CHEMISTRY METHOD 08/31/2024 1:18 PM [facility] Comment:Calculation based on the Chronic Kidney Disease Epidemiology Collaboration (CKD-EPI) equation refit without adjustment for race. BUN/Creatinine Ratio 20.5 LAB CHEMISTRY METHOD 08/31/2024 1:18 PM [facility] Calcium 8.8 8.5 - 10.5 mg/dL LAB CHEMISTRY METHOD 08/31/2024 1:18 PM [facility] Blood Venous blood specimen / Unknown Venipuncture / Unknown 08/31/2024 5:16 AM EST 08/31/2024 9:24 AM EST us Jun Robert MD LAB BLOOD ORDERABLES Final Resu lt [facility] [address] [place] [address], * (ABNORMAL) Complete blood count (08/31/2024 5:16 AM EST) WBC 7.0 4.8 - 10.8 K/mcL LAB HEMETOLOGY METHOD 08/31/2024 10:47 AM [facility] RBC 3.50(L) 3.80 - 4.80 M/mcL LAB HEMETOLOGY METHOD 08/31/2024 10:47 AM [facility] Hemoglobin 10.9(L) 11.5 - 16.0 g/dL LAB HEMETOLOGY METHOD 08/31/2024 10:47 AM [facility] Hematocrit 32.6(L) 35.0 - 47.0 % LAB HEMETOLOGY METHOD 08/31/2024 10:47 AM [facility] MCV 94.5 79.0 - 98.0 FL LAB HEMETOLOGY METHOD 08/31/2024 10:47 AM [facility] MCH 31.6 27.0 - 32.0 pcg LAB HEMETOLOGY METHOD 08/31/2024 10:47 AM [facility] MCHC 33.4 32.0 - 37.0 g/dL LAB HEMETOLOGY METHOD 08/31/2024 10:47 AM EST [facility] RDW 14.6 11.0 - 15.0 % LAB HEMETOLOGY METHOD 08/31/2024 10:47 AM EST [facility] Platelets 343 130 - 400 K/mcL LAB HEMETOLOGY METHOD 08/31/2024 10:47 AM [facility] MPV 8.8 7.0 - 11.0 FL LAB HEMETOLOGY METHOD 08/31/2024 10:47 AM EST [facility] NRBC 0.0 <1.0 % LAB HEMETOLOGY METHOD 08/31/2024 10:47 AM [facility] NRBC Absolute 0.00 <0.10 K/mcL LAB HEMETOLOGY METHOD 08/31/2024 10:47 AM [facility] Blood Venous blood specimen / Unknown Venipuncture / Unknown 08/31/2024 5:16 AM EST 08/31/2024 9:23 AM EST us Jun Robert MD LAB BLOOD ORDERABLES Final Resu lt [facility] [address] [place] [address], documented in this encounter Visit Diagnoses Diagnosis Unspecified asthma, uncomplicated Essential (primary) hypertension Unspecified essential hypertension documented in this encounter Care Teams Helpdesk Specialist Relationship Specialty Start Date End Date Romero Cedeño MD [address] [place] [address] PCP - General Internal Medicine 07/15/21 documented as of this encounter
--- OUTSIDE RECORDS SUMMARY | 2025-05-07 15:38 | XMS_ITS | Encounter Summary ---
Author Organization [facility] Address [facility] [facility] [address] [place] [address] Phone Care Team Providers Care Division Operations Manager Name Role Phone Sandeep Cedeño MD Primary Care Prov ider Encounter Details Date Type Department Care Team (Late st Contact Info) Description 02/09/2023 Ancillary Orders [facility] Department of Orthopaedics [address] [place] [address] Tyrell Swanson MD [address] [place] [address] Department [place] [address] [email or web address] Pain in both knees, unspecified chronicity Social History Tobacco Use Types Packs/Day Years Used Date Smoking Tobacco: Former Cigarettes 1 10 Smokeless Tobacco: Never Comments:quit yrs. ago Alcohol Use Standard Drinks/Week Comments Never 0 (1 standard drink = 0.6 oz pur e alcohol) Education Answer Date Recorded Are you interested in more education? Not on aaron e 02/11/2023 Are you concerned about learning? Not on file 02/11/2023 No 02/11/2023 No 02/11/2023 Comments No Sex and Gender Information Value Date Recorded Sex Assigned at Female 03/22/2024 4:44 PM EDT Legal Sex Female 7:40 PM EST Gender Identity Female 03/22/2024 4:44 PM EDT Sexual Orientation Straight 03/22/2024 4: 44 PM EDT documented as of this encounter Plan of Treatment Upcoming Encounters Date Type Department Care Team (Late st Contact Info) Description 08/02/2025 10:45 AM EDT Office Visit [facility] Department of Orthopaedics [address] [place] [address] Tyrell Swanson MD [address] [place] [address] Department [place] [address] [email or web address] documented as of this encounter Results * XR KNEE 4 OR MORE VIEWS (RIGHT) (02/09/2023 2:01 PM EDT) Anatomical Region Laterality Modality Knee Right Computed Radiogr aphy 02/09/2023 4:27 PM EDT Impressions 02/09/2023 4:29 PM EDT Moderate lateral compartment cartilage space narrowing of the right knee. Status post left total knee arthroplasty. No complication. Narrative 02/09/2023 4:29 PM EDT XR KNEE 4 OR MORE VIEWS (RIGHT), XR KNEE 4 OR MORE VIEWS (LEFT) COMPARISON: 01/16/2021 FINDINGS: Right Knee: No fracture. Moderate lateral compartment cartilage space narrowing with subchondral sclerosis. Soft tissue varicosities. No significant joint effusion. Left knee: Status post total knee arthroplasty. Hardware is intact. No perihardware lucency or fracture. No significant joint effusion. Rounded body projects over the posterior joint, possibly intra-articular. Procedure Note Small, Jessie Ocampo MD - 02/09/2023 XR KNEE 4 OR MORE VIEWS (RIGHT), XR KNEE 4 OR MORE VIEWS (LEFT) COMPARISON: 01/16/2021 FINDINGS: Right Knee: No fracture. Moderate lateral compartment cartilage spacenarrowing with subchondral sclerosis. Soft tissue varicosities. Nosignificant joint effusion. Left knee: Status post total knee arthroplasty. Hardware is intact. Noperihardware lucency or fracture. No significant joint effusion. Roundedbody projects over the posterior joint, possibly intra-articular. IMPRESSION: Moderate lateral compartment cartilage space narrowing of the rightknee. Status post left total knee arthroplasty. No complication. us Tyrell Swanson MD IMG XR LOWER EXTREMITY Final R esult documented in this encounter Visit Diagnoses Diagnosis Pain in both knees, unspecified chronicity Pain in both knees, unspecified chronicity documented in this encounter Care Teams Division Operations Manager Relationship Specialty Start Date End Date Sandeep Cedeño MD [email or web address] PCP - General Family Medicine 05/18/19 documented as of this encounter Additional Source Comments The information contained in this document represents components of the legal health record. It is not the complete legal health record.[facility]
--- OUTSIDE RECORDS SUMMARY | 2025-05-07 15:38 | XMS_ITS | Patient Health Record ---
Author Organization [facility] Address [address] [facility] [address] [place] [address] Care Team Providers Care Industrial X Ray Operator Name Role Phone Stephen Sandeep Primary Care Provider Sosa Magallon MD MSc, [facility] Unavailable [phone] Allergies Allergen (clinical drug ingredient) Drug/Non Drug Allergy documented on EMR Reaction Allergy Type Onset Date Status amoxicillin Amoxicillin stomach upset Drug Allergy Active Reason For Referral No Information Medications Medication SIG (Take, Route, Fr equency, Duration) Notes Start Date End Date Status CeleBREX 200 MG 1 capsule with food Orally Twice a day Active Hepler Thyroid 90 MG 1 tablet on an [...] HCl 150 MG 1 capsule at bedti nj Orally Once a day for 30 day(s) Active Social History Alcohol screen Question Answer Notes Did you have a drink containing alcohol in the p ast year? 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
--- OUTSIDE RECORDS SUMMARY | 2025-05-07 15:38 | XMS_ITS | Clinical Summary ---
Author Organization [facility] Address [address] [place] [address] Phone Care Team Providers Care Animal Physiology Teacher Name Role Phone Pc, [facility] Primary Care Provider + Pc, [facility] Unavailable [phone] Pc, [facility] Unavailable [phone] Medications azelastine-flut icasone (Dymista) 137-50 mcg/spray spray,non-aeros ol Dose Amount: 1 spray, Nasal, BID, Dispense Quantity: 23 g, Refills: 11, Entered: 11/03/18 11:53:19 [facility] [id number] 11/03/2018 Active fluticasone (Flovent HFA) 44 mcg/actuation inhaler Dose Amount: 2 puff, INH, BID, Dispense Quantity: 1 EA, Refills: 11, Entered: 11/03/18 11:55:12 EST 11/03/2018 Active fluticasone (Flonase Allergy Relief) 50 mcg/spray nasal spray Dose Amount: 1 spray, Nasal, BID, Special Instructions: use in each nostril, Dispense Quantity: 1 EA, Entered: 02/26/16 13:43:22 EDT 02/26/2016 Active Immunizations Immunization Administration Dates Next Due Influenza, Unspecified 08/02/2018 Pfizer Purple Cap SARS-CoV-2 12/17/2020,11/26/19 21 Social History Tobacco Use Types Packs/Day Years Used Date Smoking Tobacco: Never Assessed Comments Unknown Sex and Gender Information Value Date Recorded Sex Assigned at Not on file Legal Sex Female 10:26 AM EDT Gender Identity Not on file Sexual Orientation Not on file Last Filed Vital Signs Vital Sign Reading Time Taken Comments Blood Pressure - - Pulse - - Temperature - - Respiratory Rate - - Oxygen Saturation - - Inhaled Oxygen Concentration - - Weight 61.3 kg (135 lb 2.3 oz) 11/03/2018 10:55 AM EST Height 157.3 cm (5' 1.93 ) 11/03/2018 10:[address] Body Mass Index 24.77 11/03/2018 10:55 AM EST Plan of Treatment Health Maintenance Due Date Last Done Comments MMR Vaccines (1 of 1 - Standard series) 1951 DTaP/Tdap/Td Vaccines (1 - Tdap) 1957 COVID-19 Vaccine (3 - 2023-2 5 season) 2024 12/17/2020, 11/26/2020 Influenza Vaccine (#1) 2024 08/02/2018 HIB Vaccines Aged Out No longer eligi ble based on patient's age to complete this topic HPV Vaccines Aged Out No longer eligi ble based on patient's age to complete this topic Hepatitis A Vaccines Aged Out No long er eligible based on patient's age to complete this topic Hepatitis B Vaccines Aged Out No long er eligible based on patient's age to complete this topic IPV Vaccines Aged Out No longer eligi ble based on patient's age to complete this topic Meningococcal B Vaccine Aged Out No l onger eligible based on patient's age to complete this topic Meningococcal Vaccine Aged Out No jaspal mo eligible based on patient's age to complete this topic Rotavirus Vaccines Aged Out No longer eligible based on patient's age to complete this topic Care Teams Animal Physiology Teacher Relationship Specialty Start Date End Date [facility] [address] [place] [address] PCP - General 07/04/10 [facility] [address] [place] [address] PCP - Clinical PCP 08/25/11 [facility] [address] [place] [address] PCP - Insurance PCP 07/31/10
[2025-05-07 16:40] LABS: Magnesium 2.1 mg/dL (1.6-2.6)
[2025-05-08 08:43] LABS: HBS Num1 427.90 mIU/mL (0-7.99); HBc Num1 0.43 S/CO (0.00-0.79); HBsAGNum1 0.39 S/CO (0.00-0.99); HIV Num 1 0.06 S/CO (0.00-0.99); Hepatitis A Antibody IgM 0.14 Index (0-0.79); Hepatitis B Surface Antigen Negative (Negative); ~HepC Num1 8.42 S/CO (0.00-0.79); ~Hepatitis A Antibody IgM Nonreactive (Nonreactive); ~Hepatitis B Surface Antibody REACTIVE (Nonreactive); ~Hepatitis C Antibody Reactive (Nonreactive)
== END 2025-05-07 14:48 | disposition home or self-care (01) ==
LOC: HO.LAB 14:47
PROVIDERS: PCP Family Medicine; Visit Provider Nurse Practitioner Family
DX: R63.4 Abnormal weight loss (principal); R19.7 Diarrhea, unspecified; K44.9 Diaphragmatic hernia without obstruction or gangrene
CPT/HCPCS: 71046; 83735; 86704; 86706; 86709; 86803; 87340; 87389

== ENCOUNTER → 2025-05-07 14:59 | Outpatient (BNV) | payer MEDICARE, SELFPAY | PROVIDERS: PCP Family Medicine; Visit Provider Radiology Diagnostic Radiology | DX: K44.9 Diaphragmatic hernia without obstruction or gangrene (principal) | CPT/HCPCS: 71046 ==

== ENCOUNTER 2025-05-08 15:32 | Outpatient (REF) | payer MEDICARE, SELFPAY ==
--- OUTSIDE RECORDS SUMMARY | 2025-05-08 16:23 | XMS_ITS | Clinical Summary ---
Author Organization [facility] Address [address] [place] [address] Phone Care Team Providers Care Employer Relations Representative Name Role Phone Pc, [facility] Primary Care Provider + Pc, [facility] Unavailable [phone] Pc, [facility] Unavailable [phone] Medications azelastine-flut icasone (Dymista) 137-50 mcg/spray spray,non-aeros ol Dose Amount: 1 spray, Nasal, BID, Dispense Quantity: 23 g, Refills: 11, Entered: 11/03/18 11:53:19 [facility] [id number] 11/03/2018 Active fluticasone (Flovent [...] age to complete this topic Care Teams Employer Relations Representative Relationship Specialty Start Date End Date [facility] [address] [place] [address] PCP - General 07/04/10 [facility] [address] [place] [address] PCP - Clinical PCP 08/25/11 [facility] [address] [place] [address] PCP - Insurance PCP 07/31/10
--- OUTSIDE RECORDS SUMMARY | 2025-05-08 16:23 | XMS_ITS | Encounter Summary ---
Author Organization [facility] Address [address] [place] [address] Care Team Providers Care Track Maintainer Name Role Phone Romero Cedeño MD Primary Care [facility] Encounter Details Date Type Department Care Team (Late st Contact Info) Description 08/30/2024 Lab Requisition [facility] Main Lab [address] [facility] [place] [phone] Jun Robert MD [address] [place] [address] Unspecified asthma, uncomplicated; Essential (primary) [...] Info) Description 05/31/2025 1:30 PM EDT Appointment [facility] [address] [place] [phone] 05/31/2025 2:15 PM EDT [facility]ointment [facility] [address] [address] documented as of this encounter [...] mmol/L LAB CHEMISTRY METHOD 08/31/2024 1:[address] [facility] Potassium 4.5 3.5 - 5.5 mmol/L LAB CHEMISTRY METHOD 08/31/2024 1:[address] [facility] Chloride 100 96 - 110 mmol/L LAB CHEMISTRY METHOD 08/31/2024 1:[address] [facility] CO2 22 21 - 32 mmol/L LAB CHEMISTRY METHOD 08/31/2024 1:[address] [facility] Anion Gap 11 3 - 11 LAB CHEMISTRY METHOD 08/31/2024 1:[address] [facility] Glucose 74 70 - 100 mg/dL LAB CHEMISTRY METHOD 08/31/2024 1:[address] [facility] BUN 8 5 - 25 mg/dL LAB CHEMISTRY METHOD 08/31/2024 1:[address] [facility] Creatinine 0.39(L) 0.50 - 1.10 mg/dL LAB CHEMISTRY METHOD 08/31/2024 1:[address] [facility] eGFR 105 >=60 mL/min/1. 73m2 LAB CHEMISTRY METHOD 08/31/2024 1:[address] [facility] Comment:Calculation based on the Chronic Kidney Disease Epidemiology Collaboration (CKD-EPI) equation refit without adjustment for race. BUN/Creatinine Ratio 20.5 LAB CHEMISTRY METHOD 08/31/2024 1:[address] [facility] Calcium 8.8 8.5 - 10.5 mg/dL LAB CHEMISTRY METHOD 08/31/2024 1:[address] [facility] Blood Venous blood specimen / Unknown Venipuncture / Unknown 08/31/2024 5:16 AM EST 08/31/2024 9:24 AM EST us Jun Robert MD LAB BLOOD ORDERABLES Final Resu lt [facility] [address] [place] [address], * (ABNORMAL) Complete blood count (08/31/2024 5:16 AM EST) WBC 7.0 4.8 - 10.8 K/mcL LAB HEMETOLOGY METHOD 08/31/2024 10:[address] [facility] RBC 3.50(L) 3.80 - 4.80 M/mcL LAB HEMETOLOGY METHOD 08/31/2024 10:[address] [facility] Hemoglobin 10.9(L) 11.5 - 16.0 g/dL LAB HEMETOLOGY METHOD 08/31/2024 10:[address] [facility] Hematocrit 32.6(L) 35.0 - 47.0 % LAB HEMETOLOGY METHOD 08/31/2024 10:[address] [facility] MCV 94.5 79.0 - 98.0 FL LAB HEMETOLOGY METHOD 08/31/2024 10:[address] [facility] MCH 31.6 27.0 - 32.0 pcg LAB HEMETOLOGY METHOD 08/31/2024 10:[address] [facility] MCHC 33.4 32.0 - 37.0 g/dL LAB HEMETOLOGY METHOD 08/31/2024 10:47 AM EST [facility] RDW 14.6 11.0 - 15.0 % LAB HEMETOLOGY METHOD 08/31/2024 10:47 AM EST [facility] Platelets 343 130 - 400 K/mcL LAB HEMETOLOGY METHOD 08/31/2024 10:[address] [facility] MPV 8.8 7.0 - 11.0 FL LAB HEMETOLOGY METHOD 08/31/2024 10:47 AM EST [facility] NRBC 0.0 <1.0 % LAB HEMETOLOGY METHOD 08/31/2024 10:[address] [facility] NRBC Absolute 0.00 <0.10 K/mcL LAB HEMETOLOGY METHOD 08/31/2024 10:[address] [facility] Blood Venous blood specimen / Unknown Venipuncture / Unknown 08/31/2024 5:16 AM EST 08/31/2024 9:23 AM EST us Jun Robert MD LAB BLOOD ORDERABLES Final Resu lt [facility] [address] [place] [address], documented in this encounter Visit Diagnoses Diagnosis Unspecified asthma, uncomplicated Essential (primary) hypertension Unspecified essential hypertension documented in this encounter Care Teams Track Maintainer Relationship Specialty Start Date End Date Romero Cedeño MD [address] [place] [address] PCP - General Internal Medicine 07/15/21 documented as of this encounter
--- OUTSIDE RECORDS SUMMARY | 2025-05-08 16:23 | XMS_ITS | Clinical Summary ---
Author Organization [facility] Address [address] [place] [address] Care Team Providers Care Office Machines Sales Representative Name Role Phone Sandeep Cedeño MD [...] age to complete this topic Care Teams Office Machines Sales Representative Relationship Specialty Start Date End Date Sandeep Cedeño MD [address] [place] [id number] PCP - General Family Medicine 05/15/21
--- OUTSIDE RECORDS SUMMARY | 2025-05-08 16:23 | XMS_ITS | Encounter Summary ---
Author Organization [facility] Address [facility] [employer] [facility] [address] [place] [address] Phone Care Team Providers Care Train Control Electronic Technician Name Role Phone Sandeep Cedeño MD Primary Care Prov ider Encounter Details Date Type Department Care Team (Late st Contact Info) Description 02/09/2023 Ancillary Orders [facility] Department of Orthopaedics [address] [place] [address] Tyrell Swanson MD [address] [place] [address] Department of [place] [address] [email or web address] Pain in both knees, unspecified chronicity Social [...] Description 08/02/2025 10:45 AM EDT Office Visit [facility] Department of Orthopaedics [address] [place] [address] Tyrell Swanson MD [address] [place] [address] Department of [place] [address] [email or web address] documented as of this encounter [...] chronicity documented in this encounter Care Teams Train Control Electronic Technician Relationship Specialty Start Date End Date Sandeep Cedeño MD [email or web address] PCP - General Family Medicine 05/18/19 documented as of this encounter Additional Source Comments The information contained in this document represents components of the legal health record. It is not the complete legal health record.[facility]
== END 2025-05-08 15:33 | disposition home or self-care (01) ==
LOC: HO.LNP 15:32
PROVIDERS: Visit Provider Nurse Practitioner Family
DX: R19.7 Diarrhea, unspecified (principal)
CPT/HCPCS: 82705; 87338